=== PATIENT | female | born 1960 | race Caucasian/White ===

== ENCOUNTER 2021-01-25 21:22 | Inpatient (IN) | payer MEDICARE ==
[~2021-01-25] VITALS: Ht 160 cm; Wt 92.4 kg
[2021-01-25] MEDS ORDERED: ORPHENADRINE CITRATE 60 MG/2 ML VIAL. IM ONE (22:30)
[2021-01-25] MEDS ORDERED: DEXAMETHASONE SOD PHOS 20 MG/5 ML VIAL. IM ONE (22:30)
[2021-01-25] MEDS ORDERED: cloNIDine HCL 0.1 MG TABLET PO ONE (23:00)
--- NOTE | 2021-01-25 23:36 | RAD ---
CT lumbar spine without contrast PQRS statement: CT scans at this facility use dose reduction including either automated exposure cont rol, iterative reconstructions, and /or weight based radiation dosing via mA and kV modification when appropriate to reduce radiation dose to as low as reasonably achievable. HISTORY: Left low back pain. Left leg pain. FINDINGS: Lumbar vertebral body height and alignment intact. No fracture. No spondylolysis defect. No suspicious bone lesion. Aortoiliac artery calcified plaque. Paraspinal tissues are unremarkable. Lum bar disc height loss and disc bulges and facet spurring with multilevel spinal canal and neural malena inal stenoses, there is probable severe spinal canal stenosis at least at L4-L5. There is a large dis c herniation at T12-L1 likely contributing to marked severe spinal canal and left lateral recess sten osis the size of which could increase the probability impingement of the conus. IMPRESSION: No acute osseous injury of the lumbar spine. Lumbar disc disease as described above. Electronically signed by: Suraj Nguyễn MD (01/25/2021 11:33 PM) [facility]
--- NOTE | 2021-01-25 23:44 | ED.ADGEN ---
Past Medical History Additional Past Medical Histor: OSTEOPOROSIS, SLIPPED DISCS, MRSA Past Surgical History: , Hip Replacement, Tonsillectomy, Other Additional Past Surgical Histo: R AKA, KIDNEY STONE, GASTRIC BYPASS Smoking Status: Current Every Day Smoker Alcohol Use: None General Adult EDM: Chief Complaint: LOWER EXT PAIN HPI: HPI: Patient is a 60 year old female who presents emergency department via EMS with complaints of pain in her left leg that radiates from her low back to her knee. She denies any injury. Patient states she has been moving residences recently and has been doing a lot of bending. She reports that 6 or 7 days ago she felt like she pulled a muscle. Patient denies any numbness, tingling, or weakness of her lower left extremity. She denies any swelling, erythema, or warmth. Patient denies any dysuria, hematuria, increased urinary frequency, saddle anesthesia, or loss of bowel/bladder control. Patient currently rates her pain a 10 out of 10 on the pain scale, she states she took a hydrocodone at home with no relief of her pain she also is wearing a fentanyl pain patch with no benefit. She reports that the pain is worse with movement. Review of Systems: Review of Systems: Complete ROS is negative unless otherwise noted in the HPI. Current Medications: Current Medications Medications (Trade) Dose Ordered Sig/[facility] Start Time Stop Time Status Last Admin Dose Admin Clonidine HCl (Catapres) 0.1 mg 1X ONCE 01/25/21 23:00 01/25/21 23:01 DC 01/25/21 23:05 0.1 MG Dexamethasone Sodium Phosphate (Decadron) 10 mg 1X ONCE 01/25/21 22:30 01/25/21 22:31 DC 01/25/21 22:25 10 MG Orphenadrine Citrate (Norflex) 60 mg 1X ONCE 01/25/21 22:30 01/25/21 22:31 DC 01/25/21 22:23 60 MG Allergies: Allergies: Allergies Coded Allergies Type Severity Reaction Last Updated Verified No Known Drug Allergies 01/25/21 No Physical Exam: PE: See above Constitutional: Well developed, well nourished, no acute distress, non-toxic appearance. [] HENT: Normocephalic, atraumatic, bilateral external ears normal, nose normal. [] Eyes: PERRLA, EOMI, conjunctiva normal, no discharge. [] Neck: Normal range of motion, no stridor. [] Cardiovascular:Heart rate regular rhythm Lungs & Thorax: Respirations even and unlabored, no retractions, no respiratory distress Abdomen: soft, no tenderness Back: No bony tenderness or deformity; left lumbar paraspinal tenderness to palpation with increased pain and radiation to knee with left straight leg lift Skin: Warm, dry, no erythema, no rash. [] Extremities: No cyanosis, ROM intact, no edema. [] Neurologic: Alert and oriented X 3, normal sensory, no focal deficits noted. [] Psychologic: Affect normal, judgement normal, mood normal. [] Current Patient Data: Vital Signs: Vital Signs Date Time Temp Pulse Resp B/P (MAP) Pulse Ox O2 Delivery O2 Flow Rate FiO2 01/25/21 23:59 78 20 153/88 (109) 98 Room Air 01/25/21 21:23 98.4 98.4 EKG: EKG: [] Heart Score: C/O Chest Pain: No Radiology/Procedures: Radiology/Procedures: PROCEDURE: CT LUMBAR SPINE WO CONTRAST CT lumbar spine without contrast PQRS statement: CT scans at this facility use dose reduction including either automated exposure control, iterative reconstructions, and /or weight based radiation dosing via mA and kV modification when appropriate to reduce radiation dose to as low as reasonably achievable. HISTORY: Left low back pain. Left leg pain. FINDINGS: Lumbar vertebral body height and alignment intact. No fracture. No spondylolysis defect. No suspicious bone lesion. Aortoiliac artery calcified plaque. Paraspinal tissues are unremarkable. Lumbar disc height loss and disc bulges and facet spurring with multilevel spinal canal and neural foraminal stenoses, there is probable severe spinal canal stenosis at least at L4-L5. There is a large disc herniation at T12-L1 likely contributing to marked severe spinal canal and left lateral recess stenosis the size of which could increase the probability impingement of the conus. IMPRESSION: No acute osseous injury of the lumbar spine. Lumbar disc disease as described above. Electronically signed by: Suraj Nguyễn MD (01/25/2021 11:33 PM) [facility] [] Course & Med Decision Making: Course & Med Decision Making Pertinent Labs and Imaging studies reviewed. (See chart for details) 60-year-old female who presents emergency department via EMS with complaints of back pain. Patient was given 10 mg of IM Decadron, 60 mg of IM Norflex, and 0.1 mg clonidine in the ER. Her blood pressure improved. Patient reported that her pain also improved and she was able to sleep. CT the patient's lumbar spine was negative for any acute fractures or findings, there were were findings consistent with degenerative disc disease. Will prescribe a Medrol Dosepak. Encouraged patient to follow-up with her primary care doctor this week for further evaluation, return to the ER if symptoms worsen or fever develops. [id number] mild saline was at bedside and attempting to discharge patient back to her home when the patient was unable to transfer herself from the bed to the wheelchair or from the wheelchair to the bed. Patient does live by herself in an independent living apartment. Due to the patient's being unable to transfer due to intractable back pain will admit for further evaluation. [id number] will admit patient as observation status to Dr. Connolly for intractable back pain. Dr. Vazquez will advise Dr. Connolly admission in the morning. Patient's vital signs stable. Patient remains afebrile, appears nontoxic, respirations even and unlabored. Patient will be admitted to the medical surgical floor. []Patients Care and treatment plan provided by ER Nurse Practitioner. I was available for consult. Patient's chart reviewed. Jacqueline Disclaimer: Jacqueline Disclaimer: This electronic medical record was generated, in whole or in part, using a voice recognition dictation system. Departure Departure Impression: Primary Impression: Acute left-sided low back pain with sciatica Additional Impressions: Intractable low back pain Unable to ambulate Disposition: ADMITTED INPATIENT Admitting Physician: SHERRY Retana) Condition: STABLE Referrals: NO PCP (PCP) Patient Instructions: Sciatica, [id number] Additional Instructions: Fill the prescription(s) and use as directed. Apply heat or ice for to sore areas as needed for comfort. Activity as tolerated. Follow up with your primary care doctor this week if symptoms persist, return to the ER if symptoms worsen or you develop a fever. Scripts Methylprednisolone (MEDROL) 4 Mg Tab.ds.pk 1 PKG PO UD for 6 Days, #1 PKG 0 Refills Prov: SERA CHARELS TUBE BACKER 01/26/21 Problem Qualifiers Primary Impression: Acute left-sided low back pain with sciatica Sciatica laterality: sciatica of left side Qualified Codes: M54.42 - Lumbago with sciatica, left side SERA CHARLES APRN Jan 25, 2021 23:43 EDWIGE VAZQUEZ DO Jan 29, 2021 18:18
[2021-01-26] MEDS ORDERED: METH4TAB2 PO (00:07)
[2021-01-26] MEDS ORDERED: clonazePAM 0.5 MG TABLET PO ONE (01:30)
[2021-01-26] MEDS ORDERED: HYDROcodone/APAP 5/325MG 1 TAB TABLET PO ONE ×2 (01:30→05:00)
[2021-01-26] MEDS ORDERED: clonazePAM 0.5 MG TABLET PO PRN (06:15)
--- NOTE | 2021-01-26 09:48 | PDOC1 ---
History and Physical Date of Admission Date of Admission DATE: 01/26/21 TIME: 09:48 Identification/Chief Complaint Chief Complaint Acute severe lumbar radiculopathy, with intractable pain History of Present Illness History of Present Illness 60 year old female who presented emergency department via EMS with complaints of pain in her left leg that radiates from her low back to her knee. she has b een moving residences recently and has been doing a lot of bending./ 6 or 7 days ago she felt like she pulled a muscle. denies any numbness, tingling, or weakness of her lower left extremity. CT C/W probable severe spinal canal stenosis at least at L4-L5. There is a large disc herniation at T12-L1 likely contributing to marked severe spinal canal and left lateral recess stenosis admitted with Acute severe lumbar radiculopathy, with intractable pain // wearing a fentanyl pain patch with no benefit./ pain is worse with movement. Past Medical History Past Medical History Past Medical History Additional Past Medical Histor: OSTEOPOROSIS, SLIPPED DISCS, MRSA Past Surgical History: , Hip Replacement, Tonsillectomy, Other Additional Past Surgical Histo: R AKA, KIDNEY STONE, GASTRIC BYPASS Smoking Status: Current Every Day Smoker Alcohol Use: None fhx obesity, COPD Family History Family History: Hypertension Social History Smoke: No ALCOHOL: none Drugs: None Current Problem List Problem List Problems Medical Problems: (1) Acute left-sided low back pain with sciatica Status: Acute (2) Intractable low back pain Status: Acute (3) Unable to ambulate Status: Acute Current Medications Current Medications Current Medications Dexamethasone Sodium Phosphate (Decadron) 10 mg 1X ONCE IM Last administered on 01/25/21at 22:25; Start 01/25/21 at 22:30; Stop 01/25/21 at 22:31; Status DC Orphenadrine Citrate (Norflex) 60 mg 1X ONCE IM Last administered on 01/25/21at 22:23; Start 01/25/21 at 22:30; Stop 01/25/21 at 22:31; Status DC Clonidine HCl (Catapres) 0.1 mg 1X ONCE PO Last administered on 01/25/21at 23:05; Start 01/25/21 at 23:00; Stop 01/25/21 at 23:01; Status DC Acetaminophen/ Hydrocodone Bitart (Lortab 5/325) 1 tab 1X ONCE PO Last administered on 01/26/21at 01:26; Start 01/26/21 at 01:30; Stop 01/26/21 at 01:31; Status DC Clonazepam (KlonoPIN) 2 mg 1X ONCE PO Last administered on 01/26/21at 01:29; Start 01/26/21 at 01:30; Stop 01/26/21 at 01:31; Status DC Acetaminophen/ Hydrocodone Bitart (Lortab 5/325) 1 tab 1X ONCE PO Last administered on 01/26/21at 04:54; Start 01/26/21 at 05:00; Stop 01/26/21 at 05:01; Status DC Clonazepam (KlonoPIN) 2 mg 1X PRN PRN PO ANXIETY / AGITATION Last administered on 01/26/21at 09:13; Start 01/26/21 at 06:15 Active Scripts Active Medrol (Methylprednisolone) 4 Mg Tab.ds.pk 1 Pkg PO UD 6 Days Allergies Allergies: Coded Allergies: No Known Drug Allergies (Unverified , 01/25/21) ROS General: No: Chills, Night Sweats, Fatigue, Malaise, Appetite, Other PSYCHOLOGICAL ROS: YES: Anxiety; No: Behavioral Disorder, Concentration difficultie, Decreased libido, Depression, Disorientation, Hallucinations, Hostility, Irritablity, Memory difficulties, Mood Swings, Obsessive thoughts, Physical abuse, Sexual abuse, Sleep disturbances, Suicidal ideation, Other Eyes: No Blurry vision, No Decreased vision, No Double vision, No Dry eyes, No Excessive tearing, No Eye Pain, No Itchy Eyes, No Loss of vision, No Photophobia, No Scotomata, No Uses contacts, No Uses glasses, No Other HEENT: No: Heacaches, Visual Changes, Hearing change, Nasal congestion, Nasal discharge, Oral lesions, Sinus pain, Sore Throat, Epistaxis, Sneezing, Snoring, Tinnitus, Vertigo, Vocal changes, Other ALLERGY AND IMMUNOLOGY: No: Hives, Insect Bite Sensitivity, Itchy/Watery Eyes, Nasal Congestion, Post Nasal Drip, Seasonal Allergies, Other Hematological and Lymphatic: No: Bleeding Problems, Blood Clots, Blood Transfusions, Brusing, Night Sweats, Pallor, Swollen Lymph Nodes, Other ENDOCRINE: No: Breast Changes, Galactorrhea, Hair Pattern Changes, Hot Flashes, Malaise/lethargy, Mood Swings, Palpitations, Polydipsia/polyuria, Skin Changes, Temperature Intolerance, Unexpected Weight Changes, Other Breast: No New/Changing Breast Lumps, No Nipple changes, No Nipple discharge, No Other Respiratory: No: Cough, Hemoptysis, Orthopnea, Pleuritic Pain, Shortness of breath, SOB with excertion, Sputum Changes, Stridor, Tachypnea, Wheezing, Other Cardiovascular: No Chest Pain, No Palpitations, No Orthopnea, No Paroxysmal Noc. Dyspnea, No Edema, No Lt Headedness, No Other Gastrointestinal: No Nausea, No Vomiting, No Abdominal Pain, No Diarrhea, No Constipation, No Melena, No Hematochezia, No Other Genitourinary: No Dysuria, No Frequency, No Incontinence, No Hematuria, No Retention, No Discharge, No Urgency, No Pain, No Flank Pain, No Other, No , No , No , No , No , No , No Musculoskeletal: Yes Joint Stiffness, Yes Muscular Weakness; No Gait Disturbance, No Joint Pain, No Joint Swelling, No Muscle Pain, No Pain In:, No Swelling In:, No Other Neurological: No Behavorial Changes, No Bowel/Bladder ControlChng, No Confusion, No Dizziness, No Gait Disturbance, No Headaches, No Impaired Coord/balance, No Memory Loss, No Numbness/Tingling, No Seizures, No Speech Problems, No Tremors, No Visual Changes, No Weakness, No Other Skin: No Dry Skin, No Eczema, No Hair Changes, No Lumps, No Mole Changes, No Mottling, No Nail Changes, No Pruritus, No Rash, No Skin Lesion Changes, No Other, No Acne Physical Exam Physical Exam Constitutional: Well developed, well nourished, mod acute distress, non-toxic appearance. [] HENT: Normocephalic, atraumatic, bilateral external ears normal, nose normal. [] Eyes: PERRLA, EOMI, conjunctiva normal, no discharge. [] Neck: Normal range of motion, no stridor. [] Cardiovascular:Heart rate regular rhythm Lungs & Thorax: Respirations even and unlabored, no retractions, no respiratory distress Abdomen: soft, no tenderness Back: No bony tenderness or deformity; left lumbar paraspinal tenderness to palpation with increased pain and radiation to knee with left straight leg lift Skin: Warm, dry, no erythema, no rash. [] Extremities: No cyanosis, no edema. [] General: Alert, Oriented X3, Cooperative, moderate distress HEENT: Atraumatic, PERRLA Lungs: Clear to auscultation Heart: RRR, no thrills, no rubs Breasts: Not examined Abdomen: Normal bowel sounds, Soft Rectal Exam: not examined PELVIC: Examination not indicated Extremities: No cyanosis Skin: No significant lesion Neuro: Normal speech, Cranial nerves 3-12 NL Psych/Mental Status: Mental status NL, Mood NL Vitals Vitals Vital Signs Date Time Temp Pulse Resp B/P (MAP) Pulse Ox O2 Delivery O2 Flow Rate FiO2 01/26/21 07:35 69 17 139/78 (98) 97 Room Air 01/25/21 21:23 98.4 98.4 Labs Labs Laboratory Tests Test 01/26/21 01:25 SARS-CoV-2 Antigen (Rapid) Negative (NEGATIVE) Laboratory Tests Test 01/26/21 01:25 SARS-CoV-2 Antigen (Rapid) Negative (NEGATIVE) Images Images Signed PATIENT: COOPER HERNANDEZ ACCOUNT: [id number] : 1960 LOCATION: ER AGE: 60 SEX: F EXAM STATUS: REG ER ORD. PHYSICIAN: SERA CHARLES APRN REASON: left low back pain DOWN LT LEG FEELS LIKE BEING PULLED APART ON MUSCLE PROCEDURE: CT LUMBAR SPINE WO CONTRAST CT lumbar spine without contrast PQRS statement: CT scans at this facility use dose reduction including either automated exposure control, iterative reconstructions, and /or weight based radiation dosing via mA and kV modification when appropriate to reduce radiation dose to as low as reasonably achievable. HISTORY: Left low back pain. Left leg pain. FINDINGS: Lumbar vertebral body height and alignment intact. No fracture. No spondylolysis defect. No suspicious bone lesion. Aortoiliac artery calcified plaque. Paraspinal tissues are unremarkable. Lumbar disc height loss and disc bulges and facet spurring with multilevel spinal canal and neural foraminal stenoses, there is probable severe spinal canal stenosis at least at L4-L5. There is a large disc herniation at T12-L1 likely contributing to marked severe spinal canal and left lateral recess stenosis the size of which could increase the probability impingement of the conus. IMPRESSION: No acute osseous injury of the lumbar spine. Lumbar disc disease as described above. Electronically signed by: Rafael Nguyễn MD (01/25/2021 11:33 PM) [facility] [place] DICTATED and SIGNED BY: RAFAEL NGUYỄN MD DATE: 01/25/21 [id number] VTE Prophylaxis Ordered VTE Prophylaxis Devices: Yes VTE Pharmacological Prophylaxi: Yes Assessment/Plan Assessment/Plan IMPRESSION === Acute severe lumbar radiculopathy, with intractable pain probable severe spinal canal stenosis at least at L4-L5. There is a large disc herniation at T12-L1 likely contributing to marked severe spinal canal and left lateral recess stenosis Morbid obesity plan=== ADMIT IV PAIN CONTROL Neurosurgery consult iv pain control PT/OT Consider MRI L/S Consult dr [facility] dvt prophylaxis Justifications for Admission Other Justification ÁNGEL MARKS MD Jan 26, 2021 09:48
[2021-01-26 11:13] LABS: BASO % 0 % (0-3); EOS % 0 % (0-3); HEMATOCRIT 48.9 % (36.0-47.0); HEMOGLOBIN 16.5 g/dL (12.0-15.5); LYMPH # 0.8 x10^3/uL (1.0-4.8); LYMPH % 11 % (24-48); MEAN CORPUSCULAR HEMOGLOBIN 30 pg (25-35); MEAN CORPUSCULAR HGB CONC 34 g/dL (31-37); MEAN CORPUSCULAR VOLUME 90 fL (79-100); MONO # 0.2 x10^3/uL (0.0-1.1); MONO % 3 % (0-9); NEUT # 6.2 x10^3/uL (1.8-7.7); NEUT % 86 % (31-73); PLATELET COUNT 223 x10^3/uL (140-400); RED BLOOD COUNT 5.43 x10^6/uL (3.50-5.40); RED CELL DISTRIBUTION WIDTH 13.7 % (11.5-14.5); WHITE BLOOD COUNT 7.2 x10^3/uL (4.0-11.0)
[2021-01-26 11:26] LABS: ALBUMIN 3.6 g/dL (3.4-5.0); CALCIUM 9.3 mg/dL (8.5-10.1); CREATININE 0.8 mg/dL (0.6-1.0); GFR 72.7; POTASSIUM 4.7 mmol/L (3.5-5.1); TOTAL BILIRUBIN 0.2 mg/dL (0.2-1.0); TOTAL PROTEIN 7.2 g/dL (6.4-8.2)
[2021-01-26 12:00] LABS: % BANDS 2 % (0-9); % LYMPHS 11 % (24-48); % MONOS 3 % (0-10); % SEGS 84 % (35-66); PLT ESTIMATE ADEQUATE (ADEQUATE)
[2021-01-26 12:30] VITALS: BP 130/102
[2021-01-26 14:04] VITALS: BP 157/106
[2021-01-26] MEDS: HYDROmorphone 2 MG/ML VIAL IVP PRN (14:30)
[2021-01-26] MEDS ORDERED: 0.9 % SODIUM CHLORIDE 10 ML DISP.SYRIN. IV PRN (14:45)
[2021-01-26] MEDS ORDERED: SODIUM PHOSPHATES 19/7GM 133 ML ENEMA. PR PRN (14:45)
[2021-01-26] MEDS ORDERED: guaiFENesin ORAL 200 MG/10 ML LIQUID. PO PRN (14:45)
[2021-01-26] MEDS ORDERED: ONDANSETRON PF 4 MG/2 ML VIAL. IV PRN (14:45)
[2021-01-26] MEDS ORDERED: ACETAMINOPHEN 650 MG SUPP.RECT. PR PRN (14:45)
[2021-01-26] MEDS ORDERED: MAG HYDROX/ALUMINUM HYD/SIMETH 30 ML ORAL.SUSP PO PRN (14:45)
[2021-01-26] MEDS ORDERED: DOCUSATE SODIUM 100 MG CAPSULE. PO PRN (14:45)
[2021-01-26] MEDS ORDERED: ALBUTEROL SULFATE 2.5 MG/3 ML NEBU. NEB PRN (14:45)
--- NOTE | 2021-01-26 14:56 | PDOC4 ---
PROCEDURE Procedure At her request,I have injected painful left sacroiliac joint under aseptic skin technique,with alcohol skin prep using 2 ml of 0.25% marcaine solution mixed with 1 ml of depo-medrol 40 mg/1 ml. solution and she tolerated the procedure satisfactorily without any side effects. FRANCISCO JAVIER GIORDANO MD Jan 26, 2021 14:56
[2021-01-26 15:00] VITALS: BP 166/100
[2021-01-26] MEDS ORDERED: methylPREDNISolone ACETATE 40 MG/ML VIAL. IM ONE (15:00)
[2021-01-26] MEDS ORDERED: BUPIVACAINE MPF 0.25% 10 ML VIAL. IJ ONE (15:00)
--- NOTE | 2021-01-26 15:32 | CONS ---
DATE OF CONSULTATION: 01/26/2021 ATTENDING PHYSICIAN: Loyd Chandler MD REASON FOR CONSULTATION: The patient was seen at the request of Dr. Chandler for rehab evaluation. HISTORY OF PRESENT ILLNESS: This is a 60-year-old female admitted through the Emergency Room with severe lower back pain with radiation to her left knee. The patient had moved recently in the last week. She initially thought she might have strained her hamstrings. As it did not get any better, she was admitted through the Emergency Room. CT scan of lumbar spine revealed severe spinal canal stenosis at L4-L5 and also a large disk herniation at T12-L1, likely contributing to her marked severe spinal stenosis and left lateral recess stenosis. The patient admits chronic lower back pain. 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 Also, history of kidney stones, left hip replacement, tonsillectomy, gastric bypass. She is an everyday smoker. Also, history of obesity, chronic obstructive pulmonary disease, family history of hypertension. She is not known allergic to any medication. The patient usually gets around at wheelchair level. She lives alone. The patient denies any trouble with her bowel or bladder control. PHYSICAL EXAMINATION: GENERAL: Today revealed a middle-aged female. She is alert, in no acute distress. MUSCULOSKELETAL: The patient had painful limited movements of her lumbar spine, tenderness to palpation over left lumbar paraspinal muscles extending over to sacroiliac joint area bilaterally and also over trochanteric bursa. She had painful range of motion of both hip joints. She had mild crepitus on range of motion of left knee joint. The patient had 5/5 grade muscle strength in her upper extremities and left lower extremity. Left above-knee stump is in good condition. Straight leg raising test is negative bilaterally. She seemed to have equal perception of touch and pinprick sensation bilaterally, decreased left knee jerk, 2+ left ankle jerk. I have not tested her ambulation skills, but she is independent rolling from side to side. She is obese. 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 No clinical evidence of ongoing lumbar radiculopathy, mild degenerative joint disease of left knee joint. The patient is status post left total hip arthroplasty in the past, chronic obstructive pulmonary disease, osteoporosis, previous gastric bypass surgery. RECOMMENDATIONS: To proceed with injecting painful left sacroiliac joint area to help ease her pain. Agree with the plans for physical therapy and occupational therapy, also to start her on a Medrol Dosepak and Protonix to help protect her stomach as she had gastric bypass surgery in the past. Dr. Chandler, I appreciate asking me to participate in the care of this interesting patient. I will be glad to see her for followup with you on as-needed basis. MARK DR: Shasha TID: [id number]
[2021-01-26] MEDS ORDERED: PANTOPRAZOLE 40 MG TABLET.DR. PO SCH (16:30)
[2021-01-26 16:33] LABS: BILIRUBIN,URINE NEGATIVE (NEG); CLARITY,URINE CLEAR; COLOR,URINE YELLOW; NITRITE,URINE POSITIVE (NEG); PROTEIN,URINE NEGATIVE (NEG-TRACE); UROBILINOGEN,URINE 0.2 mg/dL (0.2 mg/dL)
[2021-01-26 16:43] LABS: BACTERIA,URINE MANY /HPF (0-FEW)
--- NOTE | 2021-01-26 16:43 | PDOC ---
Provider Note Date of Service: DATE: 01/26/21 TIME: 16:36 Provider Note Patient seen and examined at 1530 consulted for back and left leg pain She martha last week and initially thought she might have strained a muscle. It did not get any better, she was admitted through the ER. A The patient reports chronic lower back pain. 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 Also, history of kidney stones, left hip replacement, tonsillectomy, gastric bypass. She is an everyday smoker. Also, history of obesity, chronic obstructive pulmonary disease. She usually gets around at wheelchair level. She lives alone. The patient denies any trouble with her bowel or bladder control. CT reviewed with Lumbar disc height loss and disc bulges and facet spurring with multilevel spinal canal and neural foraminal stenoses, there is probable severe spinal canal stenosis at least at L4-L5. There is a large disc herniation at T12-L1 likely contributing to marked severe spinal canal and left lateral recess stenosis the size of which could increase the probability impingement of the conus. Thoracic and lumbar MRI scans ordered. Will follow. Justifications for Admission Other Justification intractable lumbar radiculopathy ESAU MORALES MD Jan 26, 2021 16:43
[2021-01-26 16:44] LABS: RBC,URINE 0 /HPF (0-2)
[2021-01-26] MEDS: methylPREDNISolone 4 MG TABLET. PO SCH ×4 (17:00→21:36)
[2021-01-26] MEDS: HYDROcodone/APAP 10/325 1 TAB TABLET PO PRN (17:21)
[2021-01-26] MEDS: IV NORMAL SALINE 1000ML BAG 1,000 ML IV SCH (17:24)
[2021-01-26] MEDS ORDERED: vitamin D PO (18:40)
[2021-01-26] MEDS ORDERED: OMEP20CA16 PO (18:40)
[2021-01-26] MEDS ORDERED: CLONAZEPAM1 MG PO (18:40)
[2021-01-26] MEDS ORDERED: CALC-497 PO (18:40)
[2021-01-26] MEDS ORDERED: LISI20TA18 PO (18:40)
[2021-01-26] MEDS ORDERED: ACID1TAB14 PO (18:40)
[2021-01-26] MEDS ORDERED: ZOLP5TAB5 PO (18:40)
[2021-01-26] MEDS ORDERED: vitamin b12 PO (18:40)
[2021-01-26] MEDS ORDERED: CLON2TAB9 PO (18:40)
[2021-01-26] MEDS ORDERED: [UNRECOGNIZED DRUG - OTHER] PO (18:40)
[2021-01-26] MEDS ORDERED: LURA60TA PO (18:40)
[2021-01-26] MEDS ORDERED: VITA400T6 PO (18:40)
[2021-01-26] MEDS ORDERED: DULO20CA PO (18:40)
[2021-01-26] MEDS ORDERED: PREG-9 PO (18:40)
[2021-01-26] MEDS ORDERED: LACT1CAP21 PO (18:40)
[2021-01-26] MEDS ORDERED: SENN8.6T11 PO (18:40)
[2021-01-26] MEDS ORDERED: ATOR40TA59 PO (18:40)
[2021-01-26] MEDS ORDERED: SUCR1TAB PO (18:40)
[2021-01-26] MEDS ORDERED: vitamin (18:40)
[2021-01-26] MEDS ORDERED: MULT-735 PO (18:40)
[2021-01-26] MEDS ORDERED: TAMS0.4C97 PO (18:40)
[2021-01-26] MEDS ORDERED: FENT1PAT17 TD (18:40)
[2021-01-26] MEDS ORDERED: FLUT16SP NS (18:40)
[2021-01-26] MEDS ORDERED: NALO25TA4 PO (18:40)
[2021-01-26] MEDS ORDERED: LEVO50TA5 PO (18:40)
[2021-01-26] MEDS ORDERED: DOCU50CA11 PO (18:40)
[2021-01-26 19:00] VITALS: BP 169/102
[2021-01-26] MEDS: LIDOCAINE (700MG/PATCH) PATCH. TD SCH (19:53)
[2021-01-26] MEDS: ENOXAPARIN 40 MG/0.4 ML SYRINGE. SQ SCH (19:54)
--- NOTE | 2021-01-26 20:10 | NUR ---
Pt arrived to floor at 1230 via stretcher, transported by ED staff. Assessment was completed at 1300 and medications were entered into computer. 4mg of Prednisone was not given d/t first dose given late.
[2021-01-26] MEDS ORDERED: [UNRECOGNIZED DRUG - OTHER] PO PRN (20:45)
[2021-01-26] MEDS: PATCH REMOVAL. MC SCH (21:00)
[2021-01-26] MEDS: ACETAMINOPHEN 325 MG TABLET. PO PRN (21:36)
[2021-01-26] MEDS: PREGABALIN 75 MG CAPSULE PO SCH (21:36)
[2021-01-26] MEDS: ATORVASTATIN CALCIUM 40 MG TABLET. PO SCH (21:37)
[2021-01-26] MEDS: DULoxetine HCL 20 MG CAPSULE.DR PO SCH (21:37)
[2021-01-26] MEDS: clonazePAM 0.5 MG TABLET PO SCH (21:37)
[2021-01-26] MEDS: SUCRALFATE 1 GM TABLET. PO SCH (21:37)
[2021-01-26] MEDS: SENNOSIDES 8.6 MG TABLET PO SCH (21:37)
[2021-01-26] MEDS: DOCUSATE SODIUM 100 MG CAPSULE. PO SCH (21:37)
[2021-01-26] MEDS: ZOLPIDEM 5 MG TABLET. PO PRN (21:38)
[2021-01-26 23:00] VITALS: BP 162/84
[2021-01-27] MEDS: HYDROcodone/APAP 10/325 1 TAB TABLET PO PRN ×4 (00:57→21:43)
[2021-01-27 03:01] VITALS: BP 188/99
[2021-01-27 03:15] VITALS: BP 142/86
[2021-01-27] MEDS: clonazePAM 0.5 MG TABLET PO PRN ×2 (05:42→15:36)
[2021-01-27] MEDS: ACETAMINOPHEN 325 MG TABLET. PO PRN (05:42)
[2021-01-27] MEDS: LEVOTHYROXINE 50 MCG TABLET PO SCH (05:42)
[2021-01-27] MEDS: IV NORMAL SALINE 1000ML BAG 1,000 ML IV SCH ×2 (05:43→18:06)
[2021-01-27 07:00] VITALS: BP 212/109
[2021-01-27] MEDS: LIDOCAINE (700MG/PATCH) PATCH. TD SCH (08:45)
[2021-01-27] MEDS: methylPREDNISolone 4 MG TABLET. PO SCH ×3 (08:46→17:35)
[2021-01-27] MEDS: SUCRALFATE 1 GM TABLET. PO SCH ×2 (08:46→20:35)
[2021-01-27] MEDS: TAMSULOSIN 0.4 MG CAP.ER.24H. PO SCH (08:46)
[2021-01-27] MEDS: PANTOPRAZOLE 40 MG TABLET.DR. PO SCH (08:46)
[2021-01-27] MEDS: LACTOBACILLUS RHAMNOSUS GG 1 CAPSULE. PO SCH (08:46)
[2021-01-27] MEDS: SENNOSIDES 8.6 MG TABLET PO SCH ×2 (08:47→20:29)
[2021-01-27] MEDS: VITAMIN E 200 UNIT CAPSULE. PO SCH (08:47)
[2021-01-27] MEDS: MULTIVITAMIN with MINERAL TABLET. PO SCH (08:47)
[2021-01-27] MEDS: CALCIUM CARB/VIT D3 500/200 TABLET. PO SCH ×2 (08:47→17:34)
[2021-01-27] MEDS: CHOLECALCIFEROL (VITAMIN D3) 1,000 UNIT TABLET PO SCH (08:47)
[2021-01-27] MEDS: LURASIDONE 40 MG TABLET. PO SCH (08:47)
[2021-01-27] MEDS: DULoxetine HCL 20 MG CAPSULE.DR PO SCH ×2 (08:47→20:29)
[2021-01-27] MEDS: DOCUSATE SODIUM 100 MG CAPSULE. PO SCH ×2 (08:48→20:30)
[2021-01-27] MEDS: LISINOPRIL 20 MG TABLET PO SCH (08:48)
[2021-01-27] MEDS: PREGABALIN 75 MG CAPSULE PO SCH ×2 (08:48→20:29)
[2021-01-27] MEDS: FLUTICASONE 50MCG/NASAL SPRAY 16GM BOTTLE. NS SCH (08:49)
[2021-01-27] MEDS ORDERED: LACTOBACILLUS RHAMNOSUS GG PO SCH (09:00)
[2021-01-27] MEDS ORDERED: NON FORMULARY ITEM (Naloxegol Oxalate (Movantik) 25 MG) PO SCH (09:00)
[2021-01-27] MEDS: CYANOCOBALAMIN (VITAMIN B-12) 1,000 MCG TABLET. PO SCH (09:00)
--- NOTE | 2021-01-27 09:27 | PDOC ---
PROGRESS NOTES Date of Service DATE: 01/27/21 TIME: 09:23 Subjective Subjective She feels better with back pain but admits radiating pain in her left lower extremity and feels that she could not move her left lower extremity,just like she did before her problem started last week. Objective Objective Vital Signs Date Time Temp Pulse Resp B/P (MAP) Pulse Ox O2 Delivery O2 Flow Rate FiO2 01/27/21 09:12 20 Room Air 01/27/21 08:48 83 212/109 01/27/21 07:00 97.7 96 97.7 01/27/21 03:01 1.0 Intake and Output 01/27/21 07:00 Intake Total 800 ml Output Total 350 ml Balance 450 ml Intake Oral 800 ml Output Urine Total 350 ml # Voids 1 Physical Exam Physical Exam She is alert,supine in bed and she had relative weakness of left hip flexors and adductors. Physical and occupational therapy has not seen her yet. Assessment Assessment Problems Medical Problems: (1) Acute left-sided low back pain with sciatica Status: Acute (2) Intractable low back pain Status: Acute (3) Unable to ambulate Status: Acute Plan Plan of Care Await MRI scan. Comment Review of Relevant I have reviewed the following items luis (where applicable) has been applied. Labs Laboratory Tests Test 01/26/21 01:25 01/26/21 11:05 01/26/21 12:50 SARS-CoV-2 Antigen (Rapid) Negative (NEGATIVE) White Blood Count 7.2 x10^3/uL (4.0-11.0) Red Blood Count 5.43 x10^6/uL (3.50-5.40) Hemoglobin 16.5 g/dL (12.0-15.5) Hematocrit 48.9 % (36.0-47.0) Mean Corpuscular Volume 90 fL (79-100) Mean Corpuscular Hemoglobin 30 pg (25-35) Mean Corpuscular Hemoglobin Concent 34 g/dL (31-37) Red Cell Distribution Width 13.7 % (11.5-14.5) Platelet Count 223 x10^3/uL (140-400) Neutrophils (%) (Auto) 86 % (31-73) Lymphocytes (%) (Auto) 11 % (24-48) Monocytes (%) (Auto) 3 % (0-9) Eosinophils (%) (Auto) 0 % (0-3) Basophils (%) (Auto) 0 % (0-3) Neutrophils # (Auto) 6.2 x10^3/uL (1.8-7.7) Lymphocytes # (Auto) 0.8 x10^3/uL (1.0-4.8) Monocytes # (Auto) 0.2 x10^3/uL (0.0-1.1) Eosinophils # (Auto) 0.0 x10^3/uL (0.0-0.7) Basophils # (Auto) 0.0 x10^3/uL (0.0-0.2) Segmented Neutrophils % 84 % (35-66) Band Neutrophils % 2 % (0-9) Lymphocytes % 11 % (24-48) Monocytes % 3 % (0-10) Platelet Estimate Adequate (ADEQUATE) Sodium Level 134 mmol/L (136-145) Potassium Level 4.7 mmol/L (3.5-5.1) Chloride Level 102 mmol/L (98-107) Carbon Dioxide Level 27 mmol/L (21-32) Anion Gap 5 (6-14) Blood Urea Nitrogen 9 mg/dL (7-20) Creatinine 0.8 mg/dL (0.6-1.0) Estimated GFR (Cockcroft-Gault) 72.7 BUN/Creatinine Ratio 11 (6-20) Glucose Level 143 mg/dL (70-99) Calcium Level 9.3 mg/dL (8.5-10.1) Total Bilirubin 0.2 mg/dL (0.2-1.0) Aspartate Amino Transf (AST/SGOT) 18 U/L (15-37) Alanine Aminotransferase (ALT/SGPT) 15 U/L (14-59) Alkaline Phosphatase 115 U/L (46-116) Total Protein 7.2 g/dL (6.4-8.2) Albumin 3.6 g/dL (3.4-5.0) Albumin/Globulin Ratio 1.0 (1.0-1.7) Urine Collection Type Unknown Urine Color Yellow Urine Clarity Clear Urine pH 7.0 (<5.0-8.0) Urine Specific [place] 1.015 (1.000-1.030) Urine Protein Negative mg/dL (NEG-TRACE) Urine Glucose (UA) Negative mg/dL (NEG) Urine Ketones (Stick) Negative mg/dL (NEG) Urine Blood Negative (NEG) Urine Nitrite Positive (NEG) Urine Bilirubin Negative (NEG) Urine Urobilinogen Dipstick 0.2 mg/dL (0.2 mg/dL) Urine Leukocyte Esterase Small (NEG) Urine RBC 0 /HPF (0-2) Urine WBC 5-10 /HPF (0-4) Urine Squamous Epithelial Cells Few /LPF Urine Bacteria Many /HPF (0-FEW) Laboratory Tests Test 01/26/21 11:05 01/26/21 12:50 White Blood Count 7.2 x10^3/uL (4.0-11.0) Red Blood Count 5.43 x10^6/uL (3.50-5.40) Hemoglobin 16.5 g/dL (12.0-15.5) Hematocrit 48.9 % (36.0-47.0) Mean Corpuscular Volume 90 fL (79-100) Mean Corpuscular Hemoglobin 30 pg (25-35) Mean Corpuscular Hemoglobin Concent 34 g/dL (31-37) Red Cell Distribution Width 13.7 % (11.5-14.5) Platelet Count 223 x10^3/uL (140-400) Neutrophils (%) (Auto) 86 % (31-73) Lymphocytes (%) (Auto) 11 % (24-48) Monocytes (%) (Auto) 3 % (0-9) Eosinophils (%) (Auto) 0 % (0-3) Basophils (%) (Auto) 0 % (0-3) Neutrophils # (Auto) 6.2 x10^3/uL (1.8-7.7) Lymphocytes # (Auto) 0.8 x10^3/uL (1.0-4.8) Monocytes # (Auto) 0.2 x10^3/uL (0.0-1.1) Eosinophils # (Auto) 0.0 x10^3/uL (0.0-0.7) Basophils # (Auto) 0.0 x10^3/uL (0.0-0.2) Segmented Neutrophils % 84 % (35-66) Band Neutrophils % 2 % (0-9) Lymphocytes % 11 % (24-48) Monocytes % 3 % (0-10) Platelet Estimate Adequate (ADEQUATE) Sodium Level 134 mmol/L (136-145) Potassium Level 4.7 mmol/L (3.5-5.1) Chloride Level 102 mmol/L (98-107) Carbon Dioxide Level 27 mmol/L (21-32) Anion Gap 5 (6-14) Blood Urea Nitrogen 9 mg/dL (7-20) Creatinine 0.8 mg/dL (0.6-1.0) Estimated GFR (Cockcroft-Gault) 72.7 BUN/Creatinine Ratio 11 (6-20) Glucose Level 143 mg/dL (70-99) Calcium Level 9.3 mg/dL (8.5-10.1) Total Bilirubin 0.2 mg/dL (0.2-1.0) Aspartate Amino Transf (AST/SGOT) 18 U/L (15-37) Alanine Aminotransferase (ALT/SGPT) 15 U/L (14-59) Alkaline Phosphatase 115 U/L (46-116) Total Protein 7.2 g/dL (6.4-8.2) Albumin 3.6 g/dL (3.4-5.0) Albumin/Globulin Ratio 1.0 (1.0-1.7) Urine Collection Type Unknown Urine Color Yellow Urine Clarity Clear Urine pH 7.0 (<5.0-8.0) Urine Specific [place] 1.015 (1.000-1.030) Urine Protein Negative mg/dL (NEG-TRACE) Urine Glucose (UA) Negative mg/dL (NEG) Urine Ketones (Stick) Negative mg/dL (NEG) Urine Blood Negative (NEG) Urine Nitrite Positive (NEG) Urine Bilirubin Negative (NEG) Urine Urobilinogen Dipstick 0.2 mg/dL (0.2 mg/dL) Urine Leukocyte Esterase Small (NEG) Urine RBC 0 /HPF (0-2) Urine WBC 5-10 /HPF (0-4) Urine Squamous Epithelial Cells Few /LPF Urine Bacteria Many /HPF (0-FEW) Medications Current Medications Dexamethasone Sodium Phosphate (Decadron) 10 mg 1X ONCE IM Last administered on 01/25/21at 22:25; Start 01/25/21 at 22:30; Stop 01/25/21 at 22:31; Status DC Orphenadrine Citrate (Norflex) 60 mg 1X ONCE IM Last administered on 01/25/21at 22:23; Start 01/25/21 at 22:30; Stop 01/25/21 at 22:31; Status DC Clonidine HCl (Catapres) 0.1 mg 1X ONCE PO Last administered on 01/25/21at 23:05; Start 01/25/21 at 23:00; Stop 01/25/21 at 23:01; Status DC Acetaminophen/ Hydrocodone Bitart (Lortab 5/325) 1 tab 1X ONCE PO Last administered on 01/26/21at 01:26; Start 01/26/21 at 01:30; Stop 01/26/21 at 01:31; Status DC Clonazepam (KlonoPIN) 2 mg 1X ONCE PO Last administered on 01/26/21at 01:29; Start 01/26/21 at 01:30; Stop 01/26/21 at 01:31; Status DC Acetaminophen/ Hydrocodone Bitart (Lortab 5/325) 1 tab 1X ONCE PO Last administered on 01/26/21at 04:54; Start 01/26/21 at 05:00; Stop 01/26/21 at 05:01; Status DC Clonazepam (KlonoPIN) 2 mg 1X PRN PRN PO ANXIETY / AGITATION Last administered on 01/26/21at 09:13; Start 01/26/21 at 06:15; Stop 01/26/21 at 10:00; Status DC Hydromorphone HCl (Dilaudid) 0.4 mg PRN Q4HRS PRN IVP MODERATE TO SEVERE PAIN Last administered on 01/26/21at 14:30; Start 01/26/21 at 10:00 Methylprednisolone Acetate (DEPO-Medrol 40MG VIAL) 40 mg 1X ONCE IM ; Start 01/26/21 at 15:00; Stop 01/26/21 at 15:01; Status DC Bupivacaine HCl (Sensorcaine-Mpf 0.25%) 10 ml 1X ONCE IJ ; Start 01/26/21 at 15 :00; Stop 01/26/21 at 15:01; Status DC Acetaminophen/ Hydrocodone Bitart (Lortab 10/325) 1 tab PRN Q6HRS PRN PO MODERATE TO SEVERE PAIN Last administered on 01/27/21at 09:12; Start 01/26/21 at 14:30 Lidocaine (Lidoderm) 1 patch DAILY TD Last administered on 01/27/21at 08:45; Start 01/26/21 at 14:00 Miscellaneous (Lidoderm Patch Removal) 1 ea QHS ; Start 01/26/21 at 21:00 Tizanidine HCl (Zanaflex) 4 mg PRN Q8HRS PRN PO MUSCLE SPASMS; Start 01/26/21 at 14:30 Methylprednisolone (Medrol) 8 mg BID PO Last administered on 01/26/21at 21:36; Start 01/26/21 at 15:00; Stop 01/26/21 at 21:01; Status DC Methylprednisolone (Medrol) 4 mg BID@1700,1900 PO ; Start 01/26/21 at 17:00; Stop 01/26/21 at 19:01; Status DC Methylprednisolone (Medrol) 4 mg TIDPC PO Last administered on 01/27/21at 08:46; Start 01/27/21 at 08:30; Stop 01/27/21 at 17:31 Methylprednisolone (Medrol) 8 mg QHS PO ; Start 01/27/21 at 21:00; Stop 01/27/21 at 21:01 Methylprednisolone (Medrol) 4 mg QIDAFTMEAL PO ; Start 01/28/21 at 09:00; Stop 01/28/21 at 21:01 Methylprednisolone (Medrol) 4 mg TID PO ; Start 01/29/21 at 09:00; Stop 01/29/21 at 21:01 Methylprednisolone (Medrol) 4 mg BID PO ; Start 01/30/21 at 09:00; Stop 01/30/21 at 21:01 Methylprednisolone (Medrol) 4 mg DAILY PO ; Start 01/31/21 at 09:00; Stop 01/31/21 at 09:01 Pantoprazole Sodium (Protonix) 40 mg DAILYAC PO Last administered on 01/26/21at 19:53; Start 01/26/21 at 16:30; Stop 01/26/21 at 21:02; Status DC Sodium Chloride (Normal Saline Flush) 3 ml QSHIFT PRN IV AFTER MEDS AND BLOOD DRAWS; Start 01/26/21 at 14:45 Sodium Chloride 1,000 ml @ 75 mls/hr [id number] IV Last administered on 01/27/21at 05:43; Start 01/26/21 at 14:45 Ondansetron HCl (Zofran) 4 mg PRN Q4HRS PRN IV NAUSEA/VOMITING; Start 01/26/21 at 14:45 Acetaminophen (Tylenol) 650 mg PRN Q4HRS PRN PO TEMP OVER 100.4F OR MILD PAIN Last administered on 01/27/21at 05:42; Start 01/26/21 at 14:45 Acetaminophen (Tylenol Supp) 650 mg PRN Q4HRS PRN DE TEMP OVER 100.4F OR MILD PAIN; Start 01/26/21 at 14:45 Al Hydroxide/Mg Hydroxide (Mylanta Plus Xs) 30 ml PRN DAILY PRN PO HEARTBURN / GAS; Start 01/26/21 at 14:45 Clonidine HCl (Catapres) 0.1 mg PRN Q6HRS PRN PO SBP>160 OR DBP>90; Start 01/26/21 at 14:45 Sodium Monofluorophosphate (Fleet Adult) 133 ml PRN DAILY PRN DE CONSTIPATION; Start 01/26/21 at 14:45 Docusate Sodium (Colace) 100 mg PRN BID PRN PO HARD STOOLS; Start 01/26/21 at 14:45 Albuterol Sulfate (Ventolin Neb Soln) 2.5 mg PRN Q4HRS PRN NEB SHORTNESS OF BREATH; Start 01/26/21 at 14:45 Guaifenesin (Robitussin) 200 mg PRN Q4HRS PRN PO COUGH; Start 01/26/21 at 14:45 Lorazepam (Ativan) 0.5 mg PRN Q4HRS PRN PO ANXIETY / AGITATION; Start 01/26/21 at 14:45 Hydromorphone HCl (Dilaudid) 0.5 mg PRN Q2HRS PRN IV SEVERE PAIN 7-10; Start 01/26/21 at 14:45 Enoxaparin Sodium (Lovenox 40mg Syringe) 40 mg Q24H SQ Last administered on 01/26/21at 19:54; Start 01/26/21 at 16:00 Atorvastatin Calcium (Lipitor) 40 mg HS PO Last administered on 01/26/21at 21:37; Start 01/26/21 at 21:00 Duloxetine HCl (Cymbalta) 20 mg BID PO Last administered on 01/27/21at 08:47; Start 01/26/21 at 21:00 Fluticasone Propionate (Flonase) 1 spray DAILY NS Last administered on 01/27/21 08:49; Start 01/27/21 at 09:00 Levothyroxine Sodium (Synthroid) 50 mcg DAILY07 PO Last administered on 01/27/21 05:42; Start 01/27/21 at 07:00 Lisinopril (Prinivil) 20 mg DAILY PO Last administered on 01/27/21 08:48; Start 01/27/21 at 09:00 Pregabalin (Lyrica) 75 mg BID PO Last administered on 01/27/21 08:48; Start 01/26/21 at 21:00 Sennosides (Senna) 17.2 mg BID PO Last administered on 01/27/21 08:47; Start 01/26/21 at 21:00 Sucralfate (Carafate) 1 gm BID PO Last administered on 01/27/21 08:46; Start 01/26/21 at 21:00 Tamsulosin HCl (Flomax) 0.4 mg DAILY PO Last administered on 01/27/21 08:46; Start 01/27/21 at 09:00 Zolpidem Tartrate (Ambien) 5 mg PRN QHS PRN PO INSOMNIA Last administered on 01/26/21 21:38; Start 01/26/21 at 20:45 Lactobacillus Rhamnosus (Culturelle) 1 cap DAILY PO Last administered on 01/27/21 08:46; Start 01/27/21 at 09:00 Calcium/Vitamin D (Oscal D 500mg/ 200uts) 1 tab BIDWMEALS PO Last administered on 01/27/21 08:47; Start 01/27/21 at 08:00 Clonazepam (KlonoPIN) 1 mg PRN TID PRN PO ANXIETY / AGITATION Last administered on 01/27/21 05:42; Start 01/26/21 at 21:00 Clonazepam (KlonoPIN) 2 mg HS PO Last administered on 01/26/21 21:37; Start 01/26/21 at 21:00 Docusate Sodium (Colace) 100 mg BID PO Last administered on 01/27/21 08:48; Start 01/26/21 at 21:00 Non-Formulary Medication (Lactobacillus Rhamnosus Gg (Culturelle)) 1 cap DAILY PO ; Start 01/27/21 at 09:00; Stop 01/26/21 at 20:58; Status DC Lurasidone HCl (Latuda) 60 mg DAILYWBKFT PO Last administered on 01/27/21at 08:47; Start 01/27/21 at 08:00 Multivitamins (Thera M Plus) 1 tab DAILY PO Last administered on 01/27/21at 08:47; Start 01/27/21 at 09:00 Non-Formulary Medication (Naloxegol Oxalate (Movantik)) 25 mg DAILY PO ; Start 01/27/21 at 09:00; Status UNV Pantoprazole Sodium (Protonix) 40 mg DAILYAC PO Last administered on 01/27/21at 08:46; Start 01/27/21 at 07:30 Vitamin E (Vitamin E) 200 unit DAILY PO Last administered on 01/27/21at 08:47; Start 01/27/21 at 09:00 Non-Formulary Medication ([cranber] ) 450 mg DAILY PRN PO urinary; Start 01/26/21 at 20:45; Stop 01/26/21 at 20:57; Status DC Cyanocobalamin (Vitamin B-12) 500 mcg DAILY PO Last administered on 01/27/21at 09:00; Start 01/27/21 at 09:00 Vitamin D (Vitamin D3) 1,000 unit DAILY PO Last administered on 01/27/21at 08: 47; Start 01/27/21 at 09:00 Active Scripts Active Medrol (Methylprednisolone) 4 Mg Tab.ds.pk 1 Pkg PO UD 6 Days Reported Zolpidem Tartrate 5 Mg Tablet 10 Mg PO QHS PRN Vitamin E (Vitamin E Mixed) 400 Unit Tablet 200 Unit PO DAILY [vitamin D] 1,000 Intlu PO DAILY [vitamin] [vitamin b12] 500 Mcg PO DAILY Flomax (Tamsulosin Hcl) 0.4 Mg Cap.er.24h 0.4 Mg PO DAILY Sucralfate 1 Gm Tablet 1 Gm PO BID Senna Laxative (Sennosides) 8.6 Mg Tablet 2 Tab PO BID 30 Days Trang-Bid Caplet (Acidoph/L.bulg/Bif.b/S.thermop) 1 Each Tablet 1 Each PO DAILY Lyrica (Pregabalin) 75 Mg Capsule 75 Mg PO BID Omeprazole 20 Mg Capsule.dr 20 Mg PO DAILY One-Daily Multi-Vitamin (Multivitamin) 1 Each Tablet 1 Tab PO DAILY 30 Days Movantik (Naloxegol Oxalate) 25 Mg Tablet 25 Mg PO DAILY Lisinopril 20 Mg Tablet 1 Tab PO DAILY Levothyroxine Sodium 50 Mcg Tablet 1 Tab PO DAILY Latuda (Lurasidone Hcl) 60 Mg Tablet 60 Mg PO DAILY Culturelle (Lactobacillus Rhamnosus Gg) 1 Each Capsule 1 Cap PO DAILY 30 Days Cymbalta (Duloxetine Hcl) 20 Mg Capsule.dr 20 Mg PO BID Colace Clear (Docusate Sodium) 50 Mg Capsule 1 Cap PO BID 30 Days [cranber] 450 Mg PO DAILY PRN Fluticasone Propionate Nasal [place] (Fluticasone Propionate) 16 Gm [place].susp 1 S pray NS DAILY FENTANYL 50mcg/hr (Fentanyl) 1 Each Patch.td72 1 Patch TD Q72H Clonazepam 2 Mg Tablet 2 Mg PO HS Clonazepam 1 Mg Tablet 1 Mg PO TID Calcium 600 + Vit D3 Caplet (Calcium Carbonate/Vitamin D3) 1 Each Tablet 1 Tab PO BID 30 Days Atorvastatin Calcium 40 Mg Tablet 40 Mg PO HS Vitals/I & O Vital Sign - Last 24 Hours 01/26/21 01/26/21 01/26/21 01/26/21 09:35 10:35 11:35 12:30 Temp 98.0 98.0 Pulse 83 80 80 83 Resp 17 17 17 18 B/P (MAP) 175/97 (123) 141/88 (105) 138/85 (102) 130/102 (111) Pulse Ox 94 94 94 94 O2 Delivery Room Air Room Air Room Air Nasal Cannula O2 Flow Rate 2.0 01/26/21 01/26/21 01/26/21 01/26/21 13:00 14:04 15:00 17:21 Temp 97.7 97.7 Pulse 80 Resp 18 18 B/P (MAP) 157/106 (123) 166/100 (122) Pulse Ox 90 O2 Delivery Nasal Cannula Room Air Nasal Cannula O2 Flow Rate 2.0 2.0 01/26/21 01/26/21 01/26/21 01/27/21 19:00 20:00 23:00 00:57 Temp 97.9 97.8 97.9 97.8 Pulse 86 84 Resp 18 18 16 B/P (MAP) 169/102 (124) 162/84 (110) Pulse Ox 97 97 O2 Delivery Nasal Cannula Nasal Cannula Nasal Cannula Room Air O2 Flow Rate 1.0 2.0 1.0 01/27/21 01/27/21 01/27/21 01/27/21 01:30 03:01 03:15 07:00 Temp 97.8 97.7 97.8 97.7 Pulse 81 79 83 Resp 15 19 18 B/P (MAP) 188/99 (128) 142/86 (104) 212/109 (143) Pulse Ox 93 93 96 O2 Delivery Nasal Cannula Nasal Cannula Room Air O2 Flow Rate 1.0 1.0 01/27/21 01/27/21 08:48 09:12 Pulse 83 Resp 20 B/P (MAP) 212/109 O2 Delivery Room Air Intake and Output 01/26/21 01/26/21 01/27/21 15:00 23:00 07:00 Intake Total 800 ml Output Total 350 ml Balance 800 ml -350 ml Justifications for Admission Other Justification intractable lumbar radiculopathy FRANCISCO JAVIER GIORDANO MD Jan 27, 2021 09:26
--- NOTE | 2021-01-27 10:18 | NUR ---
SW following. Discussed with RN, pt from home, 1L, cardiac diet, rapid COVID-[address] Burt and Dr. Pruitt following. MRI ordered. PT/OT ordered. SW will continue to follow.
--- NOTE | 2021-01-27 12:49 | PDOC ---
Provider Note Date of Service: DATE: 01/27/21 TIME: 12:48 Provider Note Patient out of room, in MRI will await MRI will follow Justifications for Admission Other Justification intractable lumbar radiculopathy ESAU MORALES MD Jan 27, 2021 12:48
[2021-01-27 15:00] VITALS: BP 172/84
--- NOTE | 2021-01-27 16:49 | RAD ---
MR LUMBAR SPINE WO -[id number], MRI THORACIC SPINE WO Date: 01/27/2021 11:26 AM Indication: thoracic stenosis, lumbar stenosis Comparison: CT 01/25/2021. Technique: Multi-planar multi-weighted magnetic resonance imaging of the thoracic and lumbar spine wa s performed without intravenous contrast using the standard lumbar spine protocol. FINDINGS: The thoracic spine is normally aligned. Trace anterolisthesis at L4-5. No acute fracture. Moderate mu ltilevel degenerative disc desiccation and disc height loss. Fatty degenerative endplate changes at T 12-L1. The conus terminates at a normal level. No abnormal signal is seen within the visualized spinal cord. No clumping of intrathecal nerve roots. Right renal atrophy. Thoracic: Multilevel small disc bulges. Moderate spinal canal stenosis at T8-9 and T10-11, mild at Mi ld spinal canal stenosis at C5-6 and T9-10. T12-L1: Left paracentral protrusion. Mild spinal canal stenosis. Mild left neural foraminal narrowing . L1-L2: Disc bulge. Mild facet arthropathy. No significant spinal stenosis. Mild bilateral neural fora tc narrowing. L2-L3: Disc bulge. Mild facet arthropathy. No significant spinal stenosis. Mild right and moderate le ft neural foraminal narrowing. L3-L4: Disc bulge. Moderate facet arthropathy. Mild spinal stenosis. Mild right and severe left neura l foraminal narrowing. L4-L5: Disc bulge. Severe facet arthropathy. Ligamentum flavum thickening. Moderate spinal stenosis a nd lateral recess narrowing. Mild right and moderate left neural foraminal narrowing. L5-S1: Disc bulge. Mild facet arthropathy. No significant spinal stenosis or neural foraminal narrowi ng. IMPRESSION: Moderate thoracolumbar spondylosis, detailed above. No severe spinal canal stenosis. Severe neural fo raminal narrowing at L3-4 on the left. Electronically signed by: Edin Robbins MD (01/27/2021 4:46 PM) [facility]
--- NOTE | 2021-01-27 16:53 | PDOC ---
[employer] PROGRESS NOTE Date of Service DOS: DATE: 01/27/21 TIME: 16:48 Chief Complaint Chief Complaint Acute severe lumbar radiculopathy, with intractable pain probable severe spinal canal stenosis at least at L4-L5. There is a large disc herniation at T12-L1 likely contributing to marked severe spinal canal and left lateral recess stenosis Morbid obesity Plan: IV PAIN CONTROL Neurosurgery consult iv pain control PT/OT Consider MRI L/S Consult dr [facility] dvt prophylaxis History of Present Illness History of Present Illness 60 year old female who presented emergency department via EMS with complaints of pain in her left leg that radiates from her low back to her knee. she has been moving residences recently and has been doing a lot of bending./ 6 or 7 days ago she felt like she pulled a muscle. denies any numbness, tingling, or weakness of her lower left extremity. CT C/W probable severe spinal canal stenosis at least at L4-L5. There is a large disc herniation at T12-L1 likely contributing to marked severe spinal canal and left lateral recess stenosis admitted with Acute severe lumbar radiculopathy, with intractable pain // wearing a fentanyl pain patch with no benefit./ pain is worse with movement. 01/27/2021: Patient still with complaints of hip pain. Received left sacroiliac joint injection with some improvement. Await MRI results. She does have a prosthetic limb and admits to no longer working with physical therapy once COVID-19 hit. Over the past 2 years she has been mostly mobile with aid of a wheelchair. Discussed potential for physical therapy regardless of MRI results. Patient states that she does not want to discharge to senior care, and would feel more comfortable discharging home with home health and her wheelchair. Await PT/OT recommendations barring MRI results. Vitals/I&O Vitals/I&O: Vital Signs Date Time Temp Pulse Resp B/P (MAP) Pulse Ox O2 Delivery O2 Flow Rate FiO2 01/27/21 15:32 18 Room Air 01/27/21 15:00 98.3 83 172/84 (113) 94 98.3 01/27/21 08:00 1.5 I & O 01/26/21 01/26/21 01/27/21 15:00 23:00 07:00 Intake Total 800 ml Output Total 350 ml Balance 800 ml -350 ml Physical Exam General: Alert, Oriented X3, Cooperative, moderate distress Heart: Regular rate Lungs: Clear Abdomen: Normal bowel sounds, Soft Extremities: No cyanosis Skin: No significant lesion Assessment and Plan Assessmemt and Plan Problems Medical Problems: (1) Acute left-sided low back pain with sciatica Status: Acute (2) Intractable low back pain Status: Acute (3) Unable to ambulate Status: Acute Comment Review of Relevant I have reviewed the following items luis (where applicable) has been applied. Medications: Current Medications Medications (Trade) Dose Ordered Sig/Bennie Route PRN Reason Start Time Stop Time Status Last Admin Dose Admin Methylprednisolone (Medrol) 4 mg TIDPC PO 01/27/21 08:30 01/27/21 17:31 01/27/21 14:24 Atorvastatin Calcium (Lipitor) 40 mg HS PO 01/26/21 21:00 01/26/21 21:37 Duloxetine HCl (Cymbalta) 20 mg BID PO 01/26/21 21:00 01/27/21 08:47 Fluticasone Propionate (Flonase) 1 spray DAILY NS 01/27/21 09:00 01/27/21 08:49 Levothyroxine Sodium (Synthroid) 50 mcg DAILY07 PO 01/27/21 07:00 01/27/21 05:42 Lisinopril (Prinivil) 20 mg DAILY PO 01/27/21 09:00 01/27/21 08:48 Pregabalin (Lyrica) 75 mg BID PO 01/26/21 21:00 01/27/21 08:48 Sennosides (Senna) 17.2 mg BID PO 01/26/21 21:00 01/27/21 08:47 Sucralfate (Carafate) 1 gm BID PO 01/26/21 21:00 01/27/21 08:46 Tamsulosin HCl (Flomax) 0.4 mg DAILY PO 01/27/21 09:00 01/27/21 08:46 Zolpidem Tartrate (Ambien) 5 mg PRN QHS PRN PO INSOMNIA 01/26/21 20:45 01/26/21 21:38 Lactobacillus Rhamnosus (Culturelle) 1 cap DAILY PO 01/27/21 09:00 01/27/21 08:46 Calcium/Vitamin D (Oscal D 500mg/ 200uts) 1 tab BIDWMEALS PO 01/27/21 08:00 01/27/21 08:47 Clonazepam (KlonoPIN) 1 mg PRN TID PRN PO ANXIETY / AGITATION,1st CHOICE 01/26/21 21:00 01/27/21 15:36 Clonazepam (KlonoPIN) 2 mg HS PO 01/26/21 21:00 01/26/21 21:37 Docusate Sodium (Colace) 100 mg BID PO 01/26/21 21:00 01/27/21 08:48 Lurasidone HCl (Latuda) 60 mg DAILYWBKFT PO 01/27/21 08:00 01/27/21 08:47 Multivitamins (Thera M Plus) 1 tab DAILY PO 01/27/21 09:00 01/27/21 08:47 Pantoprazole Sodium (Protonix) 40 mg DAILYAC PO 01/27/21 07:30 01/27/21 08:46 Vitamin E (Vitamin E) 200 unit DAILY PO 01/27/21 09:00 01/27/21 08:47 Cyanocobalamin (Vitamin B-12) 500 mcg DAILY PO 01/27/21 09:00 01/27/21 09:00 Vitamin D (Vitamin D3) 1,000 unit DAILY PO 01/27/21 09:00 01/27/21 08:47 Justifications for Admission Other Justification intractable lumbar radiculopathy ASAEL ALVAREZ MD Jan 27, 2021 16:53
[2021-01-27] MEDS: ENOXAPARIN 40 MG/0.4 ML SYRINGE. SQ SCH (17:35)
[2021-01-27 18:47] VITALS: BP 187/96
[2021-01-27] MEDS: ZOLPIDEM 5 MG TABLET. PO PRN (20:29)
[2021-01-27] MEDS: tiZANidine 4 MG TABLET. PO PRN (20:29)
[2021-01-27] MEDS: ATORVASTATIN CALCIUM 40 MG TABLET. PO SCH (20:29)
[2021-01-27] MEDS: clonazePAM 0.5 MG TABLET PO SCH (20:30)
[2021-01-27] MEDS: PATCH REMOVAL. MC SCH (20:37)
[2021-01-27] MEDS ORDERED: methylPREDNISolone 4 MG TABLET. PO SCH (21:00)
[2021-01-27 23:15] VITALS: BP 184/94
[2021-01-28] MEDS: HYDROmorphone 2 MG/ML VIAL IVP PRN ×2 (01:25→06:15)
[2021-01-28 03:34] VITALS: BP 166/92
[2021-01-28] MEDS: HYDROcodone/APAP 10/325 1 TAB TABLET PO PRN ×4 (03:40→22:47)
[2021-01-28] MEDS: LEVOTHYROXINE 50 MCG TABLET PO SCH (06:14)
[2021-01-28] MEDS: IV NORMAL SALINE 1000ML BAG 1,000 ML IV SCH (06:20)
[2021-01-28 07:00] VITALS: BP 167/117
[2021-01-28] MEDS: CYANOCOBALAMIN (VITAMIN B-12) 1,000 MCG TABLET. PO SCH (08:37)
[2021-01-28] MEDS: SUCRALFATE 1 GM TABLET. PO SCH ×2 (08:37→22:59)
[2021-01-28] MEDS: VITAMIN E 200 UNIT CAPSULE. PO SCH (08:37)
[2021-01-28] MEDS: CHOLECALCIFEROL (VITAMIN D3) 1,000 UNIT TABLET PO SCH (08:37)
[2021-01-28] MEDS: MULTIVITAMIN with MINERAL TABLET. PO SCH (08:38)
[2021-01-28] MEDS: TAMSULOSIN 0.4 MG CAP.ER.24H. PO SCH (08:38)
[2021-01-28] MEDS: SENNOSIDES 8.6 MG TABLET PO SCH ×2 (08:38→20:06)
[2021-01-28] MEDS: CALCIUM CARB/VIT D3 500/200 TABLET. PO SCH ×2 (08:38→16:06)
[2021-01-28] MEDS: DULoxetine HCL 20 MG CAPSULE.DR PO SCH ×2 (08:38→20:05)
[2021-01-28] MEDS: methylPREDNISolone 4 MG TABLET. PO SCH ×4 (08:38→20:05)
[2021-01-28] MEDS: LURASIDONE 40 MG TABLET. PO SCH (08:38)
[2021-01-28] MEDS: LACTOBACILLUS RHAMNOSUS GG 1 CAPSULE. PO SCH (08:38)
[2021-01-28] MEDS: DOCUSATE SODIUM 100 MG CAPSULE. PO SCH ×2 (08:39→20:06)
[2021-01-28] MEDS: PANTOPRAZOLE 40 MG TABLET.DR. PO SCH (08:39)
[2021-01-28] MEDS: PREGABALIN 75 MG CAPSULE PO SCH ×2 (08:39→20:05)
[2021-01-28] MEDS: LISINOPRIL 20 MG TABLET PO SCH (08:39)
[2021-01-28] MEDS: LIDOCAINE (700MG/PATCH) PATCH. TD SCH (08:40)
[2021-01-28] MEDS: clonazePAM 0.5 MG TABLET PO PRN ×3 (08:40→18:05)
[2021-01-28] MEDS: FLUTICASONE 50MCG/NASAL SPRAY 16GM BOTTLE. NS SCH (08:41)
--- NOTE | 2021-01-28 10:58 | PDOC ---
[facility] [facility] PROGRESS NOTE Date of Service DOS: DATE: 01/28/21 TIME: 10:35 Chief Complaint Chief Complaint Acute severe lumbar radiculopathy, with intractable pain probable severe spinal canal stenosis at least at L4-L5. There is a large disc herniation at T12-L1 likely contributing to marked severe spinal canal and left lateral recess stenosis Morbid obesity Plan: IV PAIN CONTROL Neurosurgery consult iv pain control PT/OT Consider MRI L/S Consult dr rogers lockbourne nadja dvt prophylaxis History of Present Illness History of Present Illness 60 year old female who presented emergency department via EMS with complaints of pain in her left leg that radiates from her low back to her knee. she has been moving residences recently and has been doing a lot of bending./ 6 or 7 days ago she felt like she pulled a muscle. denies any numbness, tingling, or weakness of her lower left extremity. CT C/W probable severe spinal canal stenosis at least at L4-L5. There is a large disc herniation at T12-L1 likely contributing to marked severe spinal canal and left lateral recess stenosis admitted with Acute severe lumbar radiculopathy, with intractable pain // wearing a fentanyl pain patch with no benefit./ pain is worse with movement. 01/27/2021: Patient still with complaints of hip pain. Received left sacroiliac joint injection with some improvement. Await MRI results. She does have a prosthetic limb and admits to no longer working with physical therapy once COVID-19 hit. Over the past 2 years she has been mostly mobile with aid of a wheelchair. Discussed potential for physical therapy regardless of MRI results. Patient states that she does not want to discharge to [facility], and would feel more comfortable discharging home with home health and her wheelchair. Await PT/OT recommendations barring MRI results. 01/28/2021: An MRI yesterday that showed moderate thoracolumbar spondylosis and severe neural foraminal narrowing at L3-4 on left. States her pain is improved. Will defer to neurosurgery in this regard. She does report regular fentanyl patch use 50 mcg to her lower back that she changes every 3 days over the past couple years. She is followed with pain management doctor. Regardless in her decision about surgical intervention or not, she is still refusing SNU; she prefers eventually to discharge home with home health services and outpatient PT. Currently on Medrol taper. Will obtain hemoglobin A1c. Vitals/I&O Vitals/I&O: Vital Signs Date Time Temp Pulse Resp B/P (MAP) Pulse Ox O2 Delivery O2 Flow Rate FiO2 01/28/21 09:50 90 Nasal Cannula 01/28/21 08:39 110 167/117 01/28/21 07:00 98.2 18 98.2 01/27/21 08:00 1.5 I & O 01/27/21 01/27/21 01/28/21 15:00 23:00 07:00 Intake Total 976.3 ml 480 ml Balance 976.3 ml 480 ml Physical Exam General: Alert, Oriented X3, Cooperative, mild distress Heart: Regular rate Lungs: Clear Abdomen: Normal bowel sounds, Soft Extremities: No cyanosis Skin: No significant lesion Assessment and Plan Assessmemt and Plan Problems Medical Problems: (1) Acute left-sided low back pain with sciatica Status: Acute (2) Intractable low back pain Status: Acute (3) Unable to ambulate Status: Acute Comment Review of Relevant I have reviewed the following items luis (where applicable) has been applied. Medications: Current Medications Medications (Trade) Dose Ordered Sig/Bennie Route PRN Reason Start Time Stop Time Status Last Admin Dose Admin Methylprednisolone (Medrol) 8 mg QHS PO 01/27/21 21:00 01/27/21 21:01 DC 01/27/21 20:35 Methylprednisolone (Medrol) 4 mg QIDAFTMEAL PO 01/28/21 09:00 01/28/21 21:01 01/28/21 08:38 Justifications for Admission Other Justification intractable lumbar radiculopathy ASAEL ALVAREZ MD Jan 28, 2021 10:58
[2021-01-28 11:00] VITALS: BP 179/106
[2021-01-28] MEDS: HYDROmorphone 2 MG/ML VIAL IV PRN ×2 (11:02→15:14)
[2021-01-28] MEDS: DICLOFENAC SODIUM 1% TOPICAL GEL 100GM TUBE. TP SCH ×2 (12:00→14:01)
[2021-01-28] MEDS: fentaNYL 50MCG/HR PATCH 1 PATCH PATCH.TD72 TD SCH (12:32)
--- NOTE | 2021-01-28 14:20 | PDOC ---
PROGRESS NOTES Date of Service DATE: 01/28/21 TIME: 14:10 Subjective Subjective c/o back and left thigh pain, slightly improved since admission Objective Objective Vital Signs Date Time Temp Pulse Resp B/P (MAP) Pulse Ox O2 Delivery O2 Flow Rate FiO2 01/28/21 12:32 90 Room Air 01/28/21 11:00 98.5 95 18 179/106 (130) 98.5 01/27/21 08:00 1.5 Intake and Output 01/28/21 07:00 Intake Total 1456.3 ml Balance 1456.3 ml Intake Oral 480 ml IV Total 976.3 ml # Voids 4 Physical Exam General: Alert, Oriented X3, Cooperative, No acute distress Neuro: Other (strength 5/5 in LE except 4/5 left hip flexor) Assessment Assessment Problems Medical Problems: (1) Acute left-sided low back pain with sciatica Status: Acute (2) Intractable low back pain Status: Acute (3) Unable to ambulate Status: Acute Plan Plan of Care MRI reviewed at L4-5 there is moderate spinal stenosis and lateral recess narrowing. Mild right and moderate left neural foraminal narrowing. At L3-4 there is mild right and severe left neural foraminal narrowing. I think she would benefit from lumbar epidural steroid injections. She may also benefit from SNF. She can follow up with me as an OP. Comment Review of Relevant I have reviewed the following items luis (where applicable) has been applied. Labs Microbiology 01/26/21 Urine Culture - Preliminary, Resulted Medications Current Medications Dexamethasone Sodium Phosphate (Decadron) 10 mg 1X ONCE IM Last administered on 01/25/21at 22:25; Start 01/25/21 at 22:30; Stop 01/25/21 at 22:31; Status DC Orphenadrine Citrate (Norflex) 60 mg 1X ONCE IM Last administered on 01/25/21at 22:23; Start 01/25/21 at 22:30; Stop 01/25/21 at 22:31; Status DC Clonidine HCl (Catapres) 0.1 mg 1X ONCE PO Last administered on 01/25/21at 23:05; Start 01/25/21 at 23:00; Stop 01/25/21 at 23:01; Status DC Acetaminophen/ Hydrocodone Bitart (Lortab 5/325) 1 tab 1X ONCE PO Last administered on 01/26/21at 01:26; Start 01/26/21 at 01:30; Stop 01/26/21 at 01:31; Status DC Clonazepam (KlonoPIN) 2 mg 1X ONCE PO Last administered on 01/26/21at 01:29; Start 01/26/21 at 01:30; Stop 01/26/21 at 01:31; Status DC Acetaminophen/ Hydrocodone Bitart (Lortab 5/325) 1 tab 1X ONCE PO Last administered on 01/26/21at 04:54; Start 01/26/21 at 05:00; Stop 01/26/21 at 05:01; Status DC Clonazepam (KlonoPIN) 2 mg 1X PRN PRN PO ANXIETY / AGITATION Last administered on 01/26/21at 09:13; Start 01/26/21 at 06:15; Stop 01/26/21 at 10:00; Status DC Hydromorphone HCl (Dilaudid) 0.4 mg PRN Q4HRS PRN IVP MODERATE TO SEVERE PAIN Last administered on 01/28/21at 06:15; Start 01/26/21 at 10:00 Methylprednisolone Acetate (DEPO-Medrol 40MG VIAL) 40 mg 1X ONCE IM ; Start 01/26/21 at 15:00; Stop 01/26/21 at 15:01; Status DC Bupivacaine HCl (Sensorcaine-Mpf 0.25%) 10 ml 1X ONCE IJ ; Start 01/26/21 at 15:00; Stop 01/26/21 at 15:01; Status DC Acetaminophen/ Hydrocodone Bitart (Lortab 10/325) 1 tab PRN Q6HRS PRN PO MODERATE TO SEVERE PAIN Last administered on 01/28/21at 09:50; Start 01/26/21 at 14:30 Lidocaine (Lidoderm) 1 patch DAILY TD Last administered on 01/28/21 08:40; Start 01/26/21 at 14:00 Miscellaneous (Lidoderm Patch Removal) 1 ea QHS MC Last administered on 01/27/21at 20:37; Start 01/26/21 at 21:00 Tizanidine HCl (Zanaflex) 4 mg PRN Q8HRS PRN PO MUSCLE SPASMS Last administered on 01/27/21at 20:29; Start 01/26/21 at 14:30 Methylprednisolone (Medrol) 8 mg BID PO Last administered on 01/26/21at 21:36; Start 01/26/21 at 15:00; Stop 01/26/21 at 21:01; Status DC Methylprednisolone (Medrol) 4 mg BID@1700,1900 PO ; Start 01/26/21 at 17:00; Stop 01/26/21 at 19:01; Status DC Methylprednisolone (Medrol) 4 mg TIDPC PO Last administered on 01/27/21at 17:35; Start 01/27/21 at 08:30; Stop 01/27/21 at 17:31; Status DC Methylprednisolone (Medrol) 8 mg QHS PO Last administered on 01/27/21at 20:35; Start 01/27/21 at 21:00; Stop 01/27/21 at 21:01; Status DC Methylprednisolone (Medrol) 4 mg QIDAFTMEAL PO Last administered on 01/28/21at 12:32; Start 01/28/21 at 09:00; Stop 01/28/21 at 21:01 Methylprednisolone (Medrol) 4 mg TID PO ; Start 01/29/21 at 09:00; Stop 01/29/21 at 21:01 Methylprednisolone (Medrol) 4 mg BID PO ; Start 01/30/21 at 09:00; Stop 01/30/21 at 21:01 Methylprednisolone (Medrol) 4 mg DAILY PO ; Start 01/31/21 at 09:00; Stop 01/31/21 at 09:01 Pantoprazole Sodium (Protonix) 40 mg DAILYAC PO Last administered on 01/26/21at 19:53; Start 01/26/21 at 16:30; Stop 01/26/21 at 21:02; Status DC Sodium Chloride (Normal Saline Flush) 3 ml QSHIFT PRN IV AFTER MEDS AND BLOOD DRAWS; Start 01/26/21 at 14:45 Sodium Chloride 1,000 ml @ 75 mls/hr [id number] IV Last administered on 01/28/21at 06:20; Start 01/26/21 at 14:45 Ondansetron HCl (Zofran) 4 mg PRN Q4HRS PRN IV NAUSEA/VOMITING; Start 01/26/21 at 14:45 Acetaminophen (Tylenol) 650 mg PRN Q4HRS PRN PO TEMP OVER 100.4F OR MILD PAIN Last administered on 01/27/21at 05:42; Start 01/26/21 at 14:45 Acetaminophen (Tylenol Supp) 650 mg PRN Q4HRS PRN MT TEMP OVER 100.4F OR MILD PAIN; Start 01/26/21 at 14:45 Al Hydroxide/Mg Hydroxide (Mylanta Plus Xs) 30 ml PRN DAILY PRN PO HEARTBURN / GAS; Start 01/26/21 at 14:45 Clonidine HCl (Catapres) 0.1 mg PRN Q6HRS PRN PO SBP>160 OR DBP>90; Start 01/26/21 at 14:45 Sodium Monofluorophosphate (Fleet Adult) 133 ml PRN DAILY PRN MT CONSTIPATION; Start 01/26/21 at 14:45 Docusate Sodium (Colace) 100 mg PRN BID PRN PO HARD STOOLS; Start 01/26/21 at 14:45 Albuterol Sulfate (Ventolin Neb Soln) 2.5 mg PRN Q4HRS PRN NEB SHORTNESS OF BREATH; Start 01/26/21 at 14:45 Guaifenesin (Robitussin) 200 mg PRN Q4HRS PRN PO COUGH; Start 01/26/21 at 14:45 Lorazepam (Ativan) 0.5 mg PRN Q4HRS PRN PO ANXIETY / AGITATION,2nd CHOICE; Start 01/26/21 at 14:45 Hydromorphone HCl (Dilaudid) 0.5 mg PRN Q2HRS PRN IV SEVERE PAIN 7-10 Last administered on 01/28/21at 11:02; Start 01/26/21 at 14:45 Enoxaparin Sodium (Lovenox 40mg Syringe) 40 mg Q24H SQ Last administered on 01/27/21at 17:35; Start 01/26/21 at 16:00 Atorvastatin Calcium (Lipitor) 40 mg HS PO Last administered on 01/27/21at 20:29; Start 01/26/21 at 21:00 Duloxetine HCl (Cymbalta) 20 mg BID PO Last administered on 01/28/21at 08:38; Start 01/26/21 at 21:00 Fluticasone Propionate (Flonase) 1 spray DAILY NS Last administered on 01/27/21at 08:49; Start 01/27/21 at 09:00 Levothyroxine Sodium (Synthroid) 50 mcg DAILY07 PO Last administered on 01/28/21 06:14; Start 01/27/21 at 07:00 Lisinopril (Prinivil) 20 mg DAILY PO Last administered on 01/28/21 08:39; Start 01/27/21 at 09:00 Pregabalin (Lyrica) 75 mg BID PO Last administered on 01/28/21 08:39; Start 01/26/21 at 21:00 Sennosides (Senna) 17.2 mg BID PO Last administered on 01/28/21 08:38; Start 01/26/21 at 21:00 Sucralfate (Carafate) 1 gm BID PO Last administered on 01/28/21 08:37; Start 01/26/21 at 21:00 Tamsulosin HCl (Flomax) 0.4 mg DAILY PO Last administered on 01/28/21 08:38; Start 01/27/21 at 09:00 Zolpidem Tartrate (Ambien) 5 mg PRN QHS PRN PO INSOMNIA Last administered on 01/27/21 20:29; Start 01/26/21 at 20:45 Lactobacillus Rhamnosus (Culturelle) 1 cap DAILY PO Last administered on 01/28/21 08:38; Start 01/27/21 at 09:00 Calcium/Vitamin D (Oscal D 500mg/ 200uts) 1 tab BIDWMEALS PO Last administered on 01/28/21 08:38; Start 01/27/21 at 08:00 Clonazepam (KlonoPIN) 1 mg PRN TID PRN PO ANXIETY / AGITATION,1st CHOICE Last administered on 01/28/21 14:00; Start 01/26/21 at 21:00 Clonazepam (KlonoPIN) 2 mg HS PO Last administered on 01/27/21 20:30; Start 01/26/21 at 21:00 Docusate Sodium (Colace) 100 mg BID PO Last administered on 01/28/21 08:39; Start 01/26/21 at 21:00 Non-Formulary Medication (Lactobacillus Rhamnosus Gg (Culturelle)) 1 cap DAILY PO ; Start 01/27/21 at 09:00; Stop 01/26/21 at 20:58; Status DC Lurasidone HCl (Latuda) 60 mg DAILYWBKFT PO Last administered on 01/28/21at 08:38; Start 01/27/21 at 08:00 Multivitamins (Thera M Plus) 1 tab DAILY PO Last administered on 01/28/21at 08:38; Start 01/27/21 at 09:00 Non-Formulary Medication (Naloxegol Oxalate (Movantik)) 25 mg DAILY PO ; Start 01/27/21 at 09:00; Stop 01/27/21 at 16:13; Status DC Pantoprazole Sodium (Protonix) 40 mg DAILYAC PO Last administered on 01/28/21at 08:39; Start 01/27/21 at 07:30 Vitamin E (Vitamin E) 200 unit DAILY PO Last administered on 01/28/21at 08:37; Start 01/27/21 at 09:00 Non-Formulary Medication ([cranber] ) 450 mg DAILY PRN PO urinary; Start 01/26/21 at 20:45; Stop 01/26/21 at 20:57; Status DC Cyanocobalamin (Vitamin B-12) 500 mcg DAILY PO Last administered on 01/28/21at 08:37; Start 01/27/21 at 09:00 Vitamin D (Vitamin D3) 1,000 unit DAILY PO Last administered on 01/28/21at 08:37; Start 01/27/21 at 09:00 Fentanyl (Duragesic 50mcg/ Hr Patch) 1 patch Q72H TD Last administered on 01/28/21at 12:32; Start 01/28/21 at 12:00 Diclofenac Sodium (Voltaren) 1 catai DAILY TP Last administered on 01/28/21at 14:01; Start 01/28/21 at 12:00 Active Scripts Active Medrol (Methylprednisolone) 4 Mg Tab.ds.pk 1 Pkg PO UD 6 Days Reported Zolpidem Tartrate 5 Mg Tablet 10 Mg PO QHS PRN Vitamin E (Vitamin E Mixed) 400 Unit Tablet 200 Unit PO DAILY [vitamin D] 1,000 Intlu PO DAILY [vitamin] [vitamin b12] 500 Mcg PO DAILY Flomax (Tamsulosin Hcl) 0.4 Mg Cap.er.24h 0.4 Mg PO DAILY Sucralfate 1 Gm Tablet 1 Gm PO BID Senna Laxative (Sennosides) 8.6 Mg Tablet 2 Tab PO BID 30 Days Trang-Bid Caplet (Acidoph/L.bulg/Bif.b/S.thermop) 1 Each Tablet 1 Each PO DAILY Lyrica (Pregabalin) 75 Mg Capsule 75 Mg PO BID Omeprazole 20 Mg Capsule.dr 20 Mg PO DAILY One-Daily Multi-Vitamin (Multivitamin) 1 Each Tablet 1 Tab PO DAILY 30 Days Movantik (Naloxegol Oxalate) 25 Mg Tablet 25 Mg PO DAILY Lisinopril 20 Mg Tablet 1 Tab PO DAILY Levothyroxine Sodium 50 Mcg Tablet 1 Tab PO DAILY Latuda (Lurasidone Hcl) 60 Mg Tablet 60 Mg PO DAILY Culturelle (Lactobacillus Rhamnosus Gg) 1 Each Capsule 1 Cap PO DAILY 30 Days Cymbalta (Duloxetine Hcl) 20 Mg Capsule.dr 20 Mg PO BID Colace Clear (Docusate Sodium) 50 Mg Capsule 1 Cap PO BID 30 Days [cranber] 450 Mg PO DAILY PRN Fluticasone Propionate Nasal Dequincy (Fluticasone Propionate) 16 Gm Dequincy.susp 1 Dequincy NS DAILY FENTANYL 50mcg/hr (Fentanyl) 1 Each Patch.td72 1 Patch TD Q72H Clonazepam 2 Mg Tablet 2 Mg PO HS Clonazepam 1 Mg Tablet 1 Mg PO TID Calcium 600 + Vit D3 Caplet (Calcium Carbonate/Vitamin D3) 1 Each Tablet 1 Tab PO BID 30 Days Atorvastatin Calcium 40 Mg Tablet 40 Mg PO HS Vitals/I & O Vital Sign - Last 24 Hours 01/27/21 01/27/21 01/27/21 01/27/21 15:00 15:32 18:47 21:43 Temp 98.3 97.8 98.3 97.8 Pulse 83 83 Resp 18 B/P (MAP) 172/84 (113) 187/96 (126) Pulse Ox 94 92 O2 Delivery Room Air Room Air Room Air Room Air 01/27/21 01/27/21 01/28/21 01/28/21 22:15 23:15 01:25 02:00 Temp 98.2 98.2 Pulse 61 Resp 22 18 24 16 B/P (MAP) 184/94 (124) Pulse Ox 92 O2 Delivery Room Air Room Air 01/28/21 01/28/21 01/28/21 01/28/21 03:34 03:40 04:10 06:15 Temp 98.0 98.0 Pulse 62 Resp 18 20 20 20 B/P (MAP) 166/92 (116) Pulse Ox 94 O2 Delivery Room Air Room Air Room Air Room Air 01/28/21 01/28/21 01/28/21 01/28/21 07:00 08:05 08:39 08:41 Temp 98.2 98.2 Pulse 110 110 Resp 18 B/P (MAP) 167/117 (134) 167/117 Pulse Ox 90 90 O2 Delivery Room Air Room Air Room Air 01/28/21 01/28/21 01/28/21 01/28/21 09:50 10:38 11:00 11:02 Temp 98.5 98.5 Pulse 95 Resp 18 B/P (MAP) 179/106 (130) Pulse Ox 90 90 94 90 O2 Delivery Nasal Cannula Room Air Room Air Room Air 01/28/21 01/28/21 11:44 12:32 Pulse Ox 90 90 O2 Delivery Room Air Room Air Intake and Output 01/27/21 01/27/21 01/28/21 15:00 23:00 07:00 Intake Total 976.3 ml 480 ml Balance 976.3 ml 480 ml Justifications for Admission Other Justification intractable lumbar radiculopathy ESAU MORALES MD Jan 28, 2021 14:20
[2021-01-28 15:00] VITALS: BP 174/89
--- NOTE | 2021-01-28 15:05 | PDOC ---
PROGRESS NOTES Date of Service DATE: 01/28/21 TIME: 15:00 Subjective Subjective She admits continued left lower extremity pain and weakness. Not interested in surgery or going to SNF. Objective Objective Vital Signs Date Time Temp Pulse Resp B/P (MAP) Pulse Ox O2 Delivery O2 Flow Rate FiO2 01/28/21 12:32 90 Room Air 01/28/21 11:00 98.5 95 18 179/106 (130) 98.5 01/27/21 08:00 1.5 Intake and Output 01/28/21 07:00 Intake Total 1456.3 ml Balance 1456.3 ml Intake Oral 480 ml IV Total 976.3 ml # Voids 4 Physical Exam Physical Exam She is sitting at edge of bed with physical therapy working with her and no change with her neurological status. 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 Dr. Pruitt note noted. I spoke to physical therapy and . Assessment Assessment Problems Medical Problems: (1) Acute left-sided low back pain with sciatica Status: Acute (2) Intractable low back pain Status: Acute (3) Unable to ambulate Status: Acute Plan Plan of Care Agree with plans for home with home health follow up when medically stable and to be seen in pain clinic on out patient basis for trial of lumbar epidural steroid injections to help ease her pain. Comment Review of Relevant I have reviewed the following items luis (where applicable) has been applied. Labs Microbiology 01/26/21 Urine Culture - Preliminary, Resulted Medications Current Medications Dexamethasone Sodium Phosphate (Decadron) 10 mg 1X ONCE IM Last administered on 01/25/21at 22:25; Start 01/25/21 at 22:30; Stop 01/25/21 at 22:31; Status DC Orphenadrine Citrate (Norflex) 60 mg 1X ONCE IM Last administered on 01/25/21at 22:23; Start 01/25/21 at 22:30; Stop 01/25/21 at 22:31; Status DC Clonidine HCl (Catapres) 0.1 mg 1X ONCE PO Last administered on 01/25/21at 23:05; Start 01/25/21 at 23:00; Stop 01/25/21 at 23:01; Status DC Acetaminophen/ Hydrocodone Bitart (Lortab 5/325) 1 tab 1X ONCE PO Last administered on 01/26/21at 01:26; Start 01/26/21 at 01:30; Stop 01/26/21 at 01:31; Status DC Clonazepam (KlonoPIN) 2 mg 1X ONCE PO Last administered on 01/26/21at 01:29; Start 01/26/21 at 01:30; Stop 01/26/21 at 01:31; Status DC Acetaminophen/ Hydrocodone Bitart (Lortab 5/325) 1 tab 1X ONCE PO Last administered on 01/26/21at 04:54; Start 01/26/21 at 05:00; Stop 01/26/21 at 05:01; Status DC Clonazepam (KlonoPIN) 2 mg 1X PRN PRN PO ANXIETY / AGITATION Last administered on 01/26/21at 09:13; Start 01/26/21 at 06:15; Stop 01/26/21 at 10:00; Status DC Hydromorphone HCl (Dilaudid) 0.4 mg PRN Q4HRS PRN IVP MODERATE TO SEVERE PAIN Last administered on 01/28/21at 06:15; Start 01/26/21 at 10:00 Methylprednisolone Acetate (DEPO-Medrol 40MG VIAL) 40 mg 1X ONCE IM ; Start 01/26/21 at 15:00; Stop 01/26/21 at 15:01; Status DC Bupivacaine HCl (Sensorcaine-Mpf 0.25%) 10 ml 1X ONCE IJ ; Start 01/26/21 at 15:00; Stop 01/26/21 at 15:01; Status DC Acetaminophen/ Hydrocodone Bitart (Lortab 10/325) 1 tab PRN Q6HRS PRN PO MODERATE TO SEVERE PAIN Last administered on 01/28/21at 09:50; Start 01/26/21 at 14:30 Lidocaine (Lidoderm) 1 patch DAILY TD Last administered on 01/28/21at 08:40; Start 01/26/21 at 14:00 Miscellaneous (Lidoderm Patch Removal) 1 ea QHS MC Last administered on 01/27/21at 20:37; Start 01/26/21 at 21:00 Tizanidine HCl (Zanaflex) 4 mg PRN Q8HRS PRN PO MUSCLE SPASMS Last administered on 01/27/21at 20:29; Start 01/26/21 at 14:30 Methylprednisolone (Medrol) 8 mg BID PO Last administered on 01/26/21at 21:36; Start 01/26/21 at 15:00; Stop 01/26/21 at 21:01; Status DC Methylprednisolone (Medrol) 4 mg BID@1700,1900 PO ; Start 01/26/21 at 17:00; Stop 01/26/21 at 19:01; Status DC Methylprednisolone (Medrol) 4 mg TIDPC PO Last administered on 01/27/21at 17:35; Start 01/27/21 at 08:30; Stop 01/27/21 at 17:31; Status DC Methylprednisolone (Medrol) 8 mg QHS PO Last administered on 01/27/21at 20:35; Start 01/27/21 at 21:00; Stop 01/27/21 at 21:01; Status DC Methylprednisolone (Medrol) 4 mg QIDAFTMEAL PO Last administered on 01/28/21at 12:32; Start 01/28/21 at 09:00; Stop 01/28/21 at 21:01 Methylprednisolone (Medrol) 4 mg TID PO ; Start 01/29/21 at 09:00; Stop 01/29/21 at 21:01 Methylprednisolone (Medrol) 4 mg BID PO ; Start 01/30/21 at 09:00; Stop 01/30/21 at 21:01 Methylprednisolone (Medrol) 4 mg DAILY PO ; Start 01/31/21 at 09:00; Stop 01/31/21 at 09:01 Pantoprazole Sodium (Protonix) 40 mg DAILYAC PO Last administered on 01/26/21at 19:53; Start 01/26/21 at 16:30; Stop 01/26/21 at 21:02; Status DC Sodium Chloride (Normal Saline Flush) 3 ml QSHIFT PRN IV AFTER MEDS AND BLOOD DRAWS; Start 01/26/21 at 14:45 Sodium Chloride 1,000 ml @ 75 mls/hr [id number] IV Last administered on 01/28/21at 06:20; Start 01/26/21 at 14:45 Ondansetron HCl (Zofran) 4 mg PRN Q4HRS PRN IV NAUSEA/VOMITING; Start 01/26/21 at 14:45 Acetaminophen (Tylenol) 650 mg PRN Q4HRS PRN PO TEMP OVER 100.4F OR MILD PAIN Last administered on 01/27/21at 05:42; Start 01/26/21 at 14:45 Acetaminophen (Tylenol Supp) 650 mg PRN Q4HRS PRN PA TEMP OVER 100.4F OR MILD PAIN; Start 01/26/21 at 14:45 Al Hydroxide/Mg Hydroxide (Mylanta Plus Xs) 30 ml PRN DAILY PRN PO HEARTBURN / GAS; Start 01/26/21 at 14:45 Clonidine HCl (Catapres) 0.1 mg PRN Q6HRS PRN PO SBP>160 OR DBP>90; Start 01/26/21 at 14:45 Sodium Monofluorophosphate (Fleet Adult) 133 ml PRN DAILY PRN [place] CONSTIPATION; Start 01/26/21 at 14:45 Docusate Sodium (Colace) 100 mg PRN BID PRN PO HARD STOOLS; Start 01/26/21 at 14:45 Albuterol Sulfate (Ventolin Neb Soln) 2.5 mg PRN Q4HRS PRN NEB SHORTNESS OF BREATH; Start 01/26/21 at 14:45 Guaifenesin (Robitussin) 200 mg PRN Q4HRS PRN PO COUGH; Start 01/26/21 at 14:45 Lorazepam (Ativan) 0.5 mg PRN Q4HRS PRN PO ANXIETY / AGITATION,2nd CHOICE; Start 01/26/21 at 14:45 Hydromorphone HCl (Dilaudid) 0.5 mg PRN Q2HRS PRN IV SEVERE PAIN 7-10 Last administered on 01/28/21at 11:02; Start 01/26/21 at 14:45 Enoxaparin Sodium (Lovenox 40mg Syringe) 40 mg Q24H SQ Last administered on 01/27/21at 17:35; Start 01/26/21 at 16:00 Atorvastatin Calcium (Lipitor) 40 mg HS PO Last administered on 01/27/21at 20:29; Start 01/26/21 at 21:00 Duloxetine HCl (Cymbalta) 20 mg BID PO Last administered on 01/28/21at 08:38; S tart 01/26/21 at 21:00 Fluticasone Propionate (Flonase) 1 spray DAILY NS Last administered on 01/27/21 08:49; Start 01/27/21 at 09:00 Levothyroxine Sodium (Synthroid) 50 mcg DAILY07 PO Last administered on 01/28/21 06:14; Start 01/27/21 at 07:00 Lisinopril (Prinivil) 20 mg DAILY PO Last administered on 01/28/21 08:39; Start 01/27/21 at 09:00 Pregabalin (Lyrica) 75 mg BID PO Last administered on 01/28/21 08:39; Start 01/26/21 at 21:00 Sennosides (Senna) 17.2 mg BID PO Last administered on 01/28/21 08:38; Start 01/26/21 at 21:00 Sucralfate (Carafate) 1 gm BID PO Last administered on 01/28/21 08:37; Start 01/26/21 at 21:00 Tamsulosin HCl (Flomax) 0.4 mg DAILY PO Last administered on 01/28/21 08:38; Start 01/27/21 at 09:00 Zolpidem Tartrate (Ambien) 5 mg PRN QHS PRN PO INSOMNIA Last administered on 01/27/21 20:29; Start 01/26/21 at 20:45 Lactobacillus Rhamnosus (Culturelle) 1 cap DAILY PO Last administered on 01/28/21 08:38; Start 01/27/21 at 09:00 Calcium/Vitamin D (Oscal D 500mg/ 200uts) 1 tab BIDWMEALS PO Last administered on 01/28/21 08:38; Start 01/27/21 at 08:00 Clonazepam (KlonoPIN) 1 mg PRN TID PRN PO ANXIETY / AGITATION,1st CHOICE Last administered on 01/28/21 14:00; Start 01/26/21 at 21:00 Clonazepam (KlonoPIN) 2 mg HS PO Last administered on 01/27/21 20:30; Start 01/26/21 at 21:00 Docusate Sodium (Colace) 100 mg BID PO Last administered on 01/28/21 08:39; Start 01/26/21 at 21:00 Non-Formulary Medication (Lactobacillus Rhamnosus Gg (Culturelle)) 1 cap DAILY PO ; Start 01/27/21 at 09:00; Stop 01/26/21 at 20:58; Status DC Lurasidone HCl (Latuda) 60 mg DAILYWBKFT PO Last administered on 01/28/21at 08:38; Start 01/27/21 at 08:00 Multivitamins (Thera M Plus) 1 tab DAILY PO Last administered on 01/28/21at 08:38; Start 01/27/21 at 09:00 Non-Formulary Medication (Naloxegol Oxalate (Movantik)) 25 mg DAILY PO ; Start 01/27/21 at 09:00; Stop 01/27/21 at 16:13; Status DC Pantoprazole Sodium (Protonix) 40 mg DAILYAC PO Last administered on 01/28/21at 08:39; Start 01/27/21 at 07:30 Vitamin E (Vitamin E) 200 unit DAILY PO Last administered on 01/28/21at 08:37; Start 01/27/21 at 09:00 Non-Formulary Medication ([cranber] ) 450 mg DAILY PRN PO urinary; Start 01/26/21 at 20:45; Stop 01/26/21 at 20:57; Status DC Cyanocobalamin (Vitamin B-12) 500 mcg DAILY PO Last administered on 01/28/21at 08:37; Start 01/27/21 at 09:00 Vitamin D (Vitamin D3) 1,000 unit DAILY PO Last administered on 01/28/21at 08:37; Start 01/27/21 at 09:00 Fentanyl (Duragesic 50mcg/ Hr Patch) 1 patch Q72H TD Last administered on at 12:32; Start 01/28/21 at 12:00 Diclofenac Sodium (Voltaren) 1 catia DAILY TP Last administered on 01/28/21at 14:01; Start 01/28/21 at 12:00 Active Scripts Active Medrol (Methylprednisolone) 4 Mg Tab.ds.pk 1 Pkg PO UD 6 Days Reported Zolpidem Tartrate 5 Mg Tablet 10 Mg PO QHS PRN Vitamin E (Vitamin E Mixed) 400 Unit Tablet 200 Unit PO DAILY [vitamin D] 1,000 Intlu PO DAILY [vitamin] [vitamin b12] 500 Mcg PO DAILY Flomax (Tamsulosin Hcl) 0.4 Mg Cap.er.24h 0.4 Mg PO DAILY Sucralfate 1 Gm Tablet 1 Gm PO BID Senna Laxative (Sennosides) 8.6 Mg Tablet 2 Tab PO BID 30 Days Trang-Bid Caplet (Acidoph/L.bulg/Bif.b/S.thermop) 1 Each Tablet 1 Each PO DAILY Lyrica (Pregabalin) 75 Mg Capsule 75 Mg PO BID Omeprazole 20 Mg Capsule.dr 20 Mg PO DAILY One-Daily Multi-Vitamin (Multivitamin) 1 Each Tablet 1 Tab PO DAILY 30 Days Movantik (Naloxegol Oxalate) 25 Mg Tablet 25 Mg PO DAILY Lisinopril 20 Mg Tablet 1 Tab PO DAILY Levothyroxine Sodium 50 Mcg Tablet 1 Tab PO DAILY Latuda (Lurasidone Hcl) 60 Mg Tablet 60 Mg PO DAILY Culturelle (Lactobacillus Rhamnosus Gg) 1 Each Capsule 1 Cap PO DAILY 30 Days Cymbalta (Duloxetine Hcl) 20 Mg Capsule.dr 20 Mg PO BID Colace Clear (Docusate Sodium) 50 Mg Capsule 1 Cap PO BID 30 Days [cranber] 450 Mg PO DAILY PRN Fluticasone Propionate Nasal [place] (Fluticasone Propionate) 16 Gm [place].susp 1 [place] NS DAILY FENTANYL 50mcg/hr (Fentanyl) 1 Each Patch.td72 1 Patch TD Q72H Clonazepam 2 Mg Tablet 2 Mg PO HS Clonazepam 1 Mg Tablet 1 Mg PO TID Calcium 600 + Vit D3 Caplet (Calcium Carbonate/Vitamin D3) 1 Each Tablet 1 Tab PO BID 30 Days Atorvastatin Calcium 40 Mg Tablet 40 Mg PO HS Vitals/I & O Vital Sign - Last 24 Hours 01/27/21 01/27/21 01/27/21 01/27/21 15:32 18:47 21:43 22:15 Temp 97.8 97.8 Pulse 83 Resp 18 18 18 22 B/P (MAP) 187/96 (126) Pulse Ox 92 O2 Delivery Room Air Room Air Room Air 01/27/21 01/28/21 01/28/21 01/28/21 23:15 01:25 02:00 03:34 Temp 98.2 98.0 98.2 98.0 Pulse 61 62 Resp 18 24 16 18 B/P (MAP) 184/94 (124) 166/92 (116) Pulse Ox 92 94 O2 Delivery Room Air Room Air Room Air 01/28/21 01/28/21 01/28/21 01/28/21 03:40 04:10 06:15 07:00 Temp 98.2 98.2 Pulse 110 Resp 20 20 20 18 B/P (MAP) 167/117 (134) Pulse Ox 90 O2 Delivery Room Air Room Air Room Air Room Air 01/28/21 01/28/21 01/28/21 01/28/21 08:05 08:39 08:41 09:50 Pulse 110 B/P (MAP) 167/117 Pulse Ox 90 90 O2 Delivery Room Air Room Air Nasal Cannula 01/28/21 01/28/21 01/28/21 01/28/21 10:38 11:00 11:02 11:44 Temp 98.5 98.5 Pulse 95 Resp 18 B/P (MAP) 179/106 (130) Pulse Ox 90 94 90 90 O2 Delivery Room Air Room Air Room Air Room Air 01/28/21 12:32 Pulse Ox 90 O2 Delivery Room Air Intake and Output 01/27/21 01/27/21 01/28/21 15:00 23:00 07:00 Intake Total 976.3 ml 480 ml Balance 976.3 ml 480 ml Justifications for Admission Other Justification intractable lumbar radiculopathy FRANCISCO JAVIER GIORDANO MD Jan 28, 2021 15:05
[2021-01-28] MEDS: tiZANidine 4 MG TABLET. PO PRN (16:06)
[2021-01-28] MEDS: ENOXAPARIN 40 MG/0.4 ML SYRINGE. SQ SCH (16:06)
[2021-01-28 19:00] VITALS: BP 160/85
[2021-01-28] MEDS: ATORVASTATIN CALCIUM 40 MG TABLET. PO SCH (20:05)
[2021-01-28] MEDS: clonazePAM 0.5 MG TABLET PO SCH (20:06)
[2021-01-28] MEDS: HYDROmorphone 2 MG TABLET PO PRN (20:06)
[2021-01-28] MEDS: ZOLPIDEM 5 MG TABLET. PO PRN (20:07)
[2021-01-28] MEDS: PATCH REMOVAL. MC SCH (21:00)
[2021-01-28 22:54] VITALS: BP 195/112
[2021-01-28] MEDS ORDERED: hydrALAZINE 20 MG/ML VIAL. IVP PRN (23:15)
[2021-01-29] VITALS (7 sets, daily range): BP systolic 124–205; BP diastolic 72–99
[2021-01-29] MEDS: tiZANidine 4 MG TABLET. PO PRN (01:50)
[2021-01-29] MEDS: HYDROmorphone 2 MG TABLET PO PRN ×4 (01:51→21:02)
[2021-01-29] MEDS: cloNIDine HCL 0.1 MG TABLET PO PRN ×2 (01:55→08:33)
[2021-01-29] MEDS: LEVOTHYROXINE 50 MCG TABLET PO SCH (05:20)
[2021-01-29] MEDS: PANTOPRAZOLE 40 MG TABLET.DR. PO SCH (05:20)
[2021-01-29] MEDS: HYDROcodone/APAP 10/325 1 TAB TABLET PO PRN ×3 (05:20→18:41)
[2021-01-29] MEDS: clonazePAM 0.5 MG TABLET PO PRN ×3 (06:47→16:28)
[2021-01-29] MEDS: CYANOCOBALAMIN (VITAMIN B-12) 1,000 MCG TABLET. PO SCH (08:34)
[2021-01-29] MEDS: SUCRALFATE 1 GM TABLET. PO SCH ×2 (08:34→21:01)
[2021-01-29] MEDS: CHOLECALCIFEROL (VITAMIN D3) 1,000 UNIT TABLET PO SCH (08:34)
[2021-01-29] MEDS: SENNOSIDES 8.6 MG TABLET PO SCH ×2 (08:34→20:49)
[2021-01-29] MEDS: VITAMIN E 200 UNIT CAPSULE. PO SCH (08:34)
[2021-01-29] MEDS: CALCIUM CARB/VIT D3 500/200 TABLET. PO SCH ×2 (08:34→16:33)
[2021-01-29] MEDS: LURASIDONE 40 MG TABLET. PO SCH (08:35)
[2021-01-29] MEDS: LACTOBACILLUS RHAMNOSUS GG 1 CAPSULE. PO SCH (08:35)
[2021-01-29] MEDS: LISINOPRIL 20 MG TABLET PO SCH (08:35)
[2021-01-29] MEDS: PREGABALIN 75 MG CAPSULE PO SCH ×2 (08:35→20:49)
[2021-01-29] MEDS: methylPREDNISolone 4 MG TABLET. PO SCH ×3 (08:35→20:49)
[2021-01-29] MEDS: TAMSULOSIN 0.4 MG CAP.ER.24H. PO SCH (08:36)
[2021-01-29] MEDS: FLUTICASONE 50MCG/NASAL SPRAY 16GM BOTTLE. NS SCH (08:36)
[2021-01-29] MEDS: DULoxetine HCL 20 MG CAPSULE.DR PO SCH ×2 (08:36→20:50)
[2021-01-29] MEDS: DOCUSATE SODIUM 100 MG CAPSULE. PO SCH ×2 (08:36→20:49)
[2021-01-29] MEDS: MULTIVITAMIN with MINERAL TABLET. PO SCH (08:36)
[2021-01-29] MEDS: LIDOCAINE (700MG/PATCH) PATCH. TD SCH (08:37)
--- NOTE | 2021-01-29 09:05 | PDOC ---
PROGRESS NOTES Date of Service DATE: 01/29/21 TIME: 09:04 Subjective Subjective No new complaints. Objective Objective Vital Signs Date Time Temp Pulse Resp B/P (MAP) Pulse Ox O2 Delivery O2 Flow Rate FiO2 01/29/21 08:35 71 176/99 01/29/21 08:33 95 Room Air 01/29/21 07:00 98.2 17 98.2 01/28/21 23:28 1.0 Intake and Output 01/29/21 07:00 Intake Total 900 ml Output Total 1100 ml Balance -200 ml Intake Oral 900 ml Output Urine Total 1100 ml # Voids 4 Physical Exam Physical Exam She is alert,supine in bed and she continues to require maximal assistance with mobility and self care. She is constipated. She agrees to go to SNF. Assessment Assessment Problems Medical Problems: (1) Acute left-sided low back pain with sciatica Status: Acute (2) Intractable low back pain Status: Acute (3) Unable to ambulate Status: Acute Plan Plan of Care To SNF when medically stable. Comment Review of Relevant I have reviewed the following items luis (where applicable) has been applied. Labs Microbiology 01/26/21 Urine Culture - Final, Complete 01/26/21 Antimicrobic Susceptibility - Final, Complete Medications Current Medications Dexamethasone Sodium Phosphate (Decadron) 10 mg 1X ONCE IM Last administered on 01/25/21at 22:25; Start 01/25/21 at 22:30; Stop 01/25/21 at 22:31; Status DC Orphenadrine Citrate (Norflex) 60 mg 1X ONCE IM Last administered on 01/25/21at 22:23; Start 01/25/21 at 22:30; Stop 01/25/21 at 22:31; Status DC Clonidine HCl (Catapres) 0.1 mg 1X ONCE PO Last administered on 01/25/21at 23:05; Start 01/25/21 at 23:00; Stop 01/25/21 at 23:01; Status DC Acetaminophen/ Hydrocodone Bitart (Lortab 5/325) 1 tab 1X ONCE PO Last administered on 01/26/21at 01:26; Start 01/26/21 at 01:30; Stop 01/26/21 at 01: 31; Status DC Clonazepam (KlonoPIN) 2 mg 1X ONCE PO Last administered on 01/26/21at 01:29; Start 01/26/21 at 01:30; Stop 01/26/21 at 01:31; Status DC Acetaminophen/ Hydrocodone Bitart (Lortab 5/325) 1 tab 1X ONCE PO Last administered on 01/26/21at 04:54; Start 01/26/21 at 05:00; Stop 01/26/21 at 05:01; Status DC Clonazepam (KlonoPIN) 2 mg 1X PRN PRN PO ANXIETY / AGITATION Last administered on 01/26/21at 09:13; Start 01/26/21 at 06:15; Stop 01/26/21 at 10:00; Status DC Hydromorphone HCl (Dilaudid) 0.4 mg PRN Q4HRS PRN IVP MODERATE TO SEVERE PAIN Last administered on 01/28/21at 06:15; Start 01/26/21 at 10:00; Stop 01/28/21 at 15:23; Status DC Methylprednisolone Acetate (DEPO-Medrol 40MG VIAL) 40 mg 1X ONCE IM ; Start 01/26/21 at 15:00; Stop 01/26/21 at 15:01; Status DC Bupivacaine HCl (Sensorcaine-Mpf 0.25%) 10 ml 1X ONCE IJ ; Start 01/26/21 at 15:00; Stop 01/26/21 at 15:01; Status DC Acetaminophen/ Hydrocodone Bitart (Lortab 10/325) 1 tab PRN Q6HRS PRN PO MODERATE TO SEVERE PAIN Last administered on 01/29/21at 05:20; Start 01/26/21 at 14:30 Lidocaine (Lidoderm) 1 patch DAILY TD Last administered on 01/28/21at 08:40; Start 01/26/21 at 14:00 Miscellaneous (Lidoderm Patch Removal) 1 ea QHS MC Last administered on 01/28/21at 21:00; Start 01/26/21 at 21:00 Tizanidine HCl (Zanaflex) 4 mg PRN Q8HRS PRN PO MUSCLE SPASMS Last administered on 01/29/21at 01:50; Start 01/26/21 at 14:30 Methylprednisolone (Medrol) 8 mg BID PO Last administered on 01/26/21at 21:36; Start 01/26/21 at 15:00; Stop 01/26/21 at 21:01; Status DC Methylprednisolone (Medrol) 4 mg BID@1700,1900 PO ; Start 01/26/21 at 17:00; Stop 01/26/21 at 19:01; Status DC Methylprednisolone (Medrol) 4 mg TIDPC PO Last administered on 01/27/21at 17:35; Start 01/27/21 at 08:30; Stop 01/27/21 at 17:31; Status DC Methylprednisolone (Medrol) 8 mg QHS PO Last administered on 01/27/21at 20:35; Start 01/27/21 at 21:00; Stop 01/27/21 at 21:01; Status DC Methylprednisolone (Medrol) 4 mg QIDAFTMEAL PO Last administered on 01/28/21at 20:05; Start 01/28/21 at 09:00; Stop 01/28/21 at 21:01; Status DC Methylprednisolone (Medrol) 4 mg TID PO Last administered on 01/29/21at 08:35; Start 01/29/21 at 09:00; Stop 01/29/21 at 21:01 Methylprednisolone (Medrol) 4 mg BID PO ; Start 01/30/21 at 09:00; Stop 01/30/21 at 21:01 Methylprednisolone (Medrol) 4 mg DAILY PO ; Start 01/31/21 at 09:00; Stop 01/31/21 at 09:01 Pantoprazole Sodium (Protonix) 40 mg DAILYAC PO Last administered on 01/26/21at 19:53; Start 01/26/21 at 16:30; Stop 01/26/21 at 21:02; Status DC Sodium Chloride (Normal Saline Flush) 3 ml QSHIFT PRN IV AFTER MEDS AND BLOOD DRAWS; Start 01/26/21 at 14:45 Sodium Chloride 1,000 ml @ 75 mls/hr [id number] IV Last administered on 01/28/21at 06:20; Start 01/26/21 at 14:45; Stop 01/28/21 at 16:25; Status DC Ondansetron HCl (Zofran) 4 mg PRN Q4HRS PRN IV NAUSEA/VOMITING; Start 01/26/21 at 14:45 Acetaminophen (Tylenol) 650 mg PRN Q4HRS PRN PO TEMP OVER 100.4F OR MILD PAIN Last administered on 01/27/21at 05:42; Start 01/26/21 at 14:45 Acetaminophen (Tylenol Supp) 650 mg PRN Q4HRS PRN SC TEMP OVER 100.4F OR MILD PAIN; Start 01/26/21 at 14:45 Al Hydroxide/Mg Hydroxide (Mylanta Plus Xs) 30 ml PRN DAILY PRN PO HEARTBURN / GAS; Start 01/26/21 at 14:45 Clonidine HCl (Catapres) 0.1 mg PRN Q6HRS PRN PO SBP>160 OR DBP>90 Last administered on 01/29/21at 08:33; Start 01/26/21 at 14:45 Sodium Monofluorophosphate (Fleet Adult) 133 ml PRN DAILY PRN [place] CONSTIPATION; Start 01/26/21 at 14:45 Docusate Sodium (Colace) 100 mg PRN BID PRN PO HARD STOOLS; Start 01/26/21 at 14:45 Albuterol Sulfate (Ventolin Neb Soln) 2.5 mg PRN Q4HRS PRN NEB SHORTNESS OF BREATH; Start 01/26/21 at 14:45 Guaifenesin (Robitussin) 200 mg PRN Q4HRS PRN PO COUGH; Start 01/26/21 at 14:45 Lorazepam (Ativan) 0.5 mg PRN Q4HRS PRN PO ANXIETY / AGITATION,2nd CHOICE; Start 01/26/21 at 14:45 Hydromorphone HCl (Dilaudid) 0.5 mg PRN Q2HRS PRN IV SEVERE PAIN 7-10 Last administered on 01/28/21at 15:14; Start 01/26/21 at 14:45; Stop 01/28/21 at 15:23; Status DC Enoxaparin Sodium (Lovenox 40mg Syringe) 40 mg Q24H SQ Last administered on 01/28/21at 16:06; Start 01/26/21 at 16:00 Atorvastatin Calcium (Lipitor) 40 mg HS PO Last administered on 01/28/21at 20:05; Start 01/26/21 at 21:00 Duloxetine HCl (Cymbalta) 20 mg BID PO Last administered on 01/29/21at 08:36; Start 01/26/21 at 21:00 Fluticasone Propionate (Flonase) 1 spray DAILY NS Last administered on 01/27/21at 08:49; Start 01/27/21 at 09:00 Levothyroxine Sodium (Synthroid) 50 mcg DAILY07 PO Last administered on 01/29/21at 05:20; Start 01/27/21 at 07:00 Lisinopril (Prinivil) 20 mg DAILY PO Last administered on 01/29/21at 08:35; Start 01/27/21 at 09:00 Pregabalin (Lyrica) 75 mg BID PO Last administered on 01/29/21 08:35; Start 01/26/21 at 21:00 Sennosides (Senna) 17.2 mg BID PO Last administered on 01/29/21 08:34; Start 01/26/21 at 21:00 Sucralfate (Carafate) 1 gm BID PO Last administered on 01/29/21 08:34; Start 01/26/21 at 21:00 Tamsulosin HCl (Flomax) 0.4 mg DAILY PO Last administered on 01/29/21 08:36; Start 01/27/21 at 09:00 Zolpidem Tartrate (Ambien) 5 mg PRN QHS PRN PO INSOMNIA Last administered on 01/28/21 20:07; Start 01/26/21 at 20:45 Lactobacillus Rhamnosus (Culturelle) 1 cap DAILY PO Last administered on 01/29/21 08:35; Start 01/27/21 at 09:00 Calcium/Vitamin D (Oscal D 500mg/ 200uts) 1 tab BIDWMEALS PO Last administered on 01/29/21 08:34; Start 01/27/21 at 08:00 Clonazepam (KlonoPIN) 1 mg PRN TID PRN PO ANXIETY / AGITATION,1st CHOICE Last administered on 01/29/21at 06:47; Start 01/26/21 at 21:00 Clonazepam (KlonoPIN) 2 mg HS PO Last administered on 01/28/21 20:06; Start 01/26/21 at 21:00 Docusate Sodium (Colace) 100 mg BID PO Last administered on 01/29/21 08:36; Start 01/26/21 at 21:00 Non-Formulary Medication (Lactobacillus Rhamnosus Gg (Culturelle)) 1 cap DAILY PO ; Start 01/27/21 at 09:00; Stop 01/26/21 at 20:58; Status DC Lurasidone HCl (Latuda) 60 mg DAILYWBKFT PO Last administered on 01/29/21at 08:35; Start 01/27/21 at 08:00 Multivitamins (Thera M Plus) 1 tab DAILY PO Last administered on 01/29/21at 08:36; Start 01/27/21 at 09:00 Non-Formulary Medication (Naloxegol Oxalate (Movantik)) 25 mg DAILY PO ; Start 01/27/21 at 09:00; Stop 01/27/21 at 16:13; Status DC Pantoprazole Sodium (Protonix) 40 mg DAILYAC PO Last administered on 01/29/21at 05:20; Start 01/27/21 at 07:30 Vitamin E (Vitamin E) 200 unit DAILY PO Last administered on 01/29/21at 08:34; Start 01/27/21 at 09:00 Non-Formulary Medication ([cranber] ) 450 mg DAILY PRN PO urinary; Start 01/26/21 at 20:45; Stop 01/26/21 at 20:57; Status DC Cyanocobalamin (Vitamin B-12) 500 mcg DAILY PO Last administered on 01/29/21at 08:34; Start 01/27/21 at 09:00 Vitamin D (Vitamin D3) 1,000 unit DAILY PO Last administered on 01/29/21at 08:3 4; Start 01/27/21 at 09:00 Fentanyl (Duragesic 50mcg/ Hr Patch) 1 patch Q72H TD Last administered on 01/28/21at 12:32; Start 01/28/21 at 12:00 Diclofenac Sodium (Voltaren) 1 catia DAILY TP Last administered on 01/28/21at 14:01; Start 01/28/21 at 12:00 Hydromorphone HCl (Dilaudid) 1 mg PRN Q4HRS PRN PO MODERATE TO SEVERE PAIN Last administered on 01/29/21at 08:33; Start 01/28/21 at 15:30 Hydralazine HCl (Apresoline Inj) 10 mg PRN Q4HRS PRN IVP ELEVATED BP, SEE COMMENTS Last administered on 01/28/21at 23:17; Start 01/28/21 at 23:15 Active Scripts Active Medrol (Methylprednisolone) 4 Mg Tab.ds.pk 1 Pkg PO UD 6 Days Reported Zolpidem Tartrate 5 Mg Tablet 10 Mg PO QHS PRN Vitamin E (Vitamin E Mixed) 400 Unit Tablet 200 Unit PO DAILY [vitamin D] 1,000 Intlu PO DAILY [vitamin] [vitamin b12] 500 Mcg PO DAILY Flomax (Tamsulosin Hcl) 0.4 Mg Cap.er.24h 0.4 Mg PO DAILY Sucralfate 1 Gm Tablet 1 Gm PO BID Senna Laxative (Sennosides) 8.6 Mg Tablet 2 Tab PO BID 30 Days Trang-Bid Caplet (Acidoph/L.bulg/Bif.b/S.thermop) 1 Each Tablet 1 Each PO DAILY Lyrica (Pregabalin) 75 Mg Capsule 75 Mg PO BID Omeprazole 20 Mg Capsule.dr 20 Mg PO DAILY One-Daily Multi-Vitamin (Multivitamin) 1 Each Tablet 1 Tab PO DAILY 30 Days Movantik (Naloxegol Oxalate) 25 Mg Tablet 25 Mg PO DAILY Lisinopril 20 Mg Tablet 1 Tab PO DAILY Levothyroxine Sodium 50 Mcg Tablet 1 Tab PO DAILY Latuda (Lurasidone Hcl) 60 Mg Tablet 60 Mg PO DAILY Culturelle (Lactobacillus Rhamnosus Gg) 1 Each Capsule 1 Cap PO DAILY 30 Days Cymbalta (Duloxetine Hcl) 20 Mg Capsule.dr 20 Mg PO BID Colace Clear (Docusate Sodium) 50 Mg Capsule 1 Cap PO BID 30 Days [cranber] 450 Mg PO DAILY PRN Fluticasone Propionate Nasal [place] (Fluticasone Propionate) 16 Gm [place].susp 1 [place] NS DAILY FENTANYL 50mcg/hr (Fentanyl) 1 Each Patch.td72 1 Patch TD Q72H Clonazepam 2 Mg Tablet 2 Mg PO HS Clonazepam 1 Mg Tablet 1 Mg PO TID Calcium 600 + Vit D3 Caplet (Calcium Carbonate/Vitamin D3) 1 Each Tablet 1 Tab PO BID 30 Days Atorvastatin Calcium 40 Mg Tablet 40 Mg PO HS Vitals/I & O Vital Sign - Last 24 Hours 01/28/21 01/28/21 01/28/21 01/28/21 09:50 10:38 11:00 11:02 Temp 98.5 98.5 Pulse 95 Resp 18 B/P (MAP) 179/106 (130) Pulse Ox 90 90 94 90 O2 Delivery Nasal Cannula Room Air Room Air Room Air 801/28/21 01/28/21 01/28/21 11:44 12:32 15:00 15:14 Temp 98.2 98.2 Pulse 80 Resp 18 B/P (MAP) 174/89 (117) Pulse Ox 90 90 92 90 O2 Delivery Room Air Room Air Room Air Room Air 01/28/21 01/28/21 01/28/21 01/28/21 16:06 17:06 17:07 19:00 Temp 98.1 98.1 Pulse 78 Resp 18 B/P (MAP) 160/85 (110) Pulse Ox 90 93 O2 Delivery Room Air Room Air Room Air Room Air 01/28/21 01/28/21 01/28/21 01/28/21 20:00 20:06 20:36 22:47 Resp 16 15 17 Pulse Ox 93 93 O2 Delivery Nasal Cannula Room Air Nasal Cannula Nasal Cannula O2 Flow Rate 1.0 1.0 1.0 01/28/21 01/28/21 01/28/21 01/29/21 22:54 23:17 23:28 01:51 Temp 98.5 98.5 Pulse 67 67 Resp 18 15 14 B/P (MAP) 195/112 (139) 190/100 Pulse Ox 95 95 O2 Delivery Room Air Nasal Cannula Room Air O2 Flow Rate 1.0 01/29/21 01/29/21 01/29/21 01/29/21 01:55 02:18 02:24 03:00 Temp 98.3 98.3 Pulse 66 74 Resp 18 16 B/P (MAP) 205/96 205/95 (131) 176/82 (113) Pulse Ox 97 O2 Delivery Room Air Room Air 01/29/21 01/29/21 01/29/21 01/29/21 05:20 06:00 07:00 08:33 Temp 98.2 98.2 Pulse 71 71 Resp 15 16 17 B/P (MAP) 176/99 (124) 176/99 Pulse Ox 95 O2 Delivery Room Air Room Air Room Air 01/29/21 01/29/21 08:33 08:35 Pulse 71 B/P (MAP) 176/99 Pulse Ox 95 O2 Delivery Room Air Intake and Output 01/28/21 01/28/21 01/29/21 15:00 23:00 07:00 Intake Total 900 ml Output Total 200 ml 900 ml Balance 700 ml -900 ml Justifications for Admission Other Justification intractable lumbar radiculopathy FRANCISCO JAVIER GIORDANO MD Jan 29, 2021 09:05
[2021-01-29] MEDS: BISACODYL 5 MG TABLET.DR. PO SCH (09:15)
[2021-01-29] MEDS ORDERED: BISACODYL 10 MG SUPP.RECT. PR PRN (09:15)
--- NOTE | 2021-01-29 12:10 | NUR ---
SW following. Discussed with RN, pt now agreeable to SNF. Therapy recommending SNF. SW met with pt, she wants to double check with her daughter on facility due to being new to the area. SW awaiting response. Pt considering [facility] in [facility]. SW will continue to follow.
[2021-01-29] MEDS: MAGNESIUM CITRATE 296 ML SOLUTION. PO PRN (12:18)
--- NOTE | 2021-01-29 13:17 | PDOC ---
[employer] PROGRESS NOTE Date of Service DOS: DATE: 01/29/21 TIME: 13:13 Chief Complaint Chief Complaint Acute severe lumbar radiculopathy, with intractable pain probable severe spinal canal stenosis at least at L4-L5. There is a large disc herniation at T12-L1 likely contributing to marked severe spinal canal and left lateral recess stenosis Morbid obesity Plan: IV PAIN CONTROL Neurosurgery consult iv pain control PT/OT Consider MRI L/S Consult dr rogers [place] nadja dvt prophylaxis History of Present Illness History of Present Illness 60 year old female who presented emergency department via EMS with complaints of pain in her left leg that radiates from her low back to her knee. she has been moving residences recently and has been doing a lot of bending./ 6 or 7 days ago she felt like she pulled a muscle. denies any numbness, tingling, or weakness of her lower left extremity. CT C/W probable severe spinal canal stenosis at least at L4-L5. There is a large disc herniation at T12-L1 likely contributing to marked severe spinal canal and left lateral recess stenosis admitted with Acute severe lumbar radiculopathy, with intractable pain // wearing a fentanyl pain patch with no benefit./ pain is worse with movement. 01/27/2021: Patient still with complaints of hip pain. Received left sacroiliac joint injection with some improvement. Await MRI results. She does have a prosthetic limb and admits to no longer working with physical therapy once COVID-19 hit. Over the past 2 years she has been mostly mobile with aid of a wheelchair. Discussed potential for physical therapy regardless of MRI results. Patient states that she does not want to discharge to correction, and would feel more comfortable discharging home with home health and her wheelchair. Await PT/OT recommendations barring MRI results. 01/28/2021: An MRI yesterday that showed moderate thoracolumbar spondylosis and severe neural foraminal narrowing at L3-4 on left. States her pain is improved. Will defer to neurosurgery in this regard. She does report regular fentanyl patch use 50 mcg to her lower back that she changes every 3 days over the past couple years. She is followed with pain management doctor. Regardless in her decision about surgical intervention or not, she is still refusing SNU; she prefers eventually to discharge home with home health services and outpatient PT. Currently on Medrol taper. Will obtain hemoglobin A1c. 01/29/2021: Feels okay, pain controlled. Per Dr. Pruitt, she may benefit from lumbar epidural steroid injections and SNU. I discussion with patient yesterday afternoon after my initial visit and this morning; she is agreeable to SNU. She has a pain management doctor that she has been in touch with on the phone while inpatient. Informed patient and social and human services assistant that as to not violate any pain management will provide information for patient to update her pain management doctor about the pharmacies used at whichever correction facility she may be accepted to. Vitals/I&O Vitals/I&O: Vital Signs Date Time Temp Pulse Resp B/P (MAP) Pulse Ox O2 Delivery O2 Flow Rate FiO2 01/29/21 12:22 95 Room Air 01/29/21 11:00 98.0 66 17 128/86 (100) 98.0 01/28/21 23:28 1.0 I & O 01/28/21 01/28/21 01/29/21 15:00 23:00 07:00 Intake Total 900 ml Output Total 200 ml 900 ml Balance 700 ml -900 ml Physical Exam General: Alert, Oriented X3, Cooperative, No acute distress Heart: Regular rate Lungs: Clear Abdomen: Normal bowel sounds, Soft Extremities: No cyanosis Skin: No significant lesion Assessment and Plan Assessmemt and Plan Problems Medical Problems: (1) Acute left-sided low back pain with sciatica Status: Acute (2) Intractable low back pain Status: Acute (3) Unable to ambulate Status: Acute Comment Review of Relevant I have reviewed the following items luis (where applicable) has been applied. Medications: Current Medications Medications (Trade) Dose Ordered Sig/Bennie Route PRN Reason Start Time Stop Time Status Last Admin Dose Admin Methylprednisolone (Medrol) 4 mg TID PO 01/29/21 09:00 01/29/21 21:01 01/29/21 08:35 Hydromorphone HCl (Dilaudid) 1 mg PRN Q4HRS PRN PO MODERATE TO SEVERE PAIN 01/28/21 15:30 01/29/21 08:33 Hydralazine HCl (Apresoline Inj) 10 mg PRN Q4HRS PRN IVP ELEVATED BP, SEE COMMENTS 01/28/21 23:15 01/28/21 23:17 Magnesium Citrate (Citroma) 296 ml PRN 1X PRN PO CONSTIPATION 01/29/21 09:15 01/29/21 12:18 Bisacodyl (Dulcolax Supp) 10 mg PRN DAILY PRN [place] CONSTIPATION 01/29/21 09:15 01/29/21 12:19 Justifications for Admission Other Justification intractable lumbar radiculopathy ASAEL AVLAREZ MD Jan 29, 2021 13:17
[2021-01-29 15:29] LABS: CALCIUM 9.7 mg/dL (8.5-10.1); CREATININE 0.9 mg/dL (0.6-1.0); GFR 63.4; POTASSIUM 3.7 mmol/L (3.5-5.1)
[2021-01-29] MEDS: ENOXAPARIN 40 MG/0.4 ML SYRINGE. SQ SCH (16:29)
[2021-01-29] MEDS: clonazePAM 0.5 MG TABLET PO SCH (20:50)
[2021-01-29] MEDS: ATORVASTATIN CALCIUM 40 MG TABLET. PO SCH (21:01)
[2021-01-29] MEDS: PATCH REMOVAL. MC SCH (21:08)
[2021-01-29] MEDS: ZOLPIDEM 5 MG TABLET. PO PRN (21:08)
[2021-01-30] MEDS: HYDROcodone/APAP 10/325 1 TAB TABLET PO PRN ×3 (01:12→20:33)
[2021-01-30 02:12] LABS: HEMOGLOBIN A1C 5.6 % (4.8-5.6)
[2021-01-30 02:57] VITALS: BP 138/88
[2021-01-30] MEDS: HYDROmorphone 2 MG TABLET PO PRN ×4 (02:59→20:32)
[2021-01-30] MEDS: tiZANidine 4 MG TABLET. PO PRN (06:07)
[2021-01-30] MEDS: PANTOPRAZOLE 40 MG TABLET.DR. PO SCH (06:07)
[2021-01-30] MEDS: LEVOTHYROXINE 50 MCG TABLET PO SCH (06:07)
[2021-01-30 07:00] VITALS: BP 162/79
[2021-01-30] MEDS: BISACODYL 5 MG TABLET.DR. PO SCH (07:47)
[2021-01-30] MEDS: SENNOSIDES 8.6 MG TABLET PO SCH ×2 (07:48→20:33)
[2021-01-30] MEDS: TAMSULOSIN 0.4 MG CAP.ER.24H. PO SCH (08:36)
[2021-01-30] MEDS: DOCUSATE SODIUM 100 MG CAPSULE. PO SCH ×2 (08:36→20:32)
[2021-01-30] MEDS: PREGABALIN 75 MG CAPSULE PO SCH ×2 (08:37→20:33)
[2021-01-30] MEDS: LISINOPRIL 20 MG TABLET PO SCH (08:37)
[2021-01-30] MEDS: VITAMIN E 200 UNIT CAPSULE. PO SCH (08:38)
[2021-01-30] MEDS: DULoxetine HCL 20 MG CAPSULE.DR PO SCH ×2 (08:38→20:32)
[2021-01-30] MEDS: methylPREDNISolone 4 MG TABLET. PO SCH ×2 (08:38→20:31)
[2021-01-30] MEDS: SUCRALFATE 1 GM TABLET. PO SCH ×2 (08:38→20:32)
[2021-01-30] MEDS: CALCIUM CARB/VIT D3 500/200 TABLET. PO SCH ×2 (08:38→17:17)
[2021-01-30] MEDS: LACTOBACILLUS RHAMNOSUS GG 1 CAPSULE. PO SCH (08:38)
[2021-01-30] MEDS: MULTIVITAMIN with MINERAL TABLET. PO SCH (08:38)
[2021-01-30] MEDS: LURASIDONE 40 MG TABLET. PO SCH (08:39)
[2021-01-30] MEDS: CYANOCOBALAMIN (VITAMIN B-12) 1,000 MCG TABLET. PO SCH (08:39)
[2021-01-30] MEDS: CHOLECALCIFEROL (VITAMIN D3) 1,000 UNIT TABLET PO SCH (08:39)
[2021-01-30] MEDS: LIDOCAINE (700MG/PATCH) PATCH. TD SCH (08:41)
[2021-01-30] MEDS: FLUTICASONE 50MCG/NASAL SPRAY 16GM BOTTLE. NS SCH (08:44)
[2021-01-30] MEDS: DICLOFENAC SODIUM 1% TOPICAL GEL 100GM TUBE. TP SCH (08:44)
--- NOTE | 2021-01-30 08:51 | PDOC ---
PROGRESS NOTES Date of Service DATE: 01/30/21 TIME: 08:49 Subjective Subjective No new complaints. Objective Objective Vital Signs Date Time Temp Pulse Resp B/P (MAP) Pulse Ox O2 Delivery O2 Flow Rate FiO2 01/30/21 08:37 62 138/88 01/30/21 07:00 97.9 17 91 Room Air 97.9 01/28/21 23:28 1.0 Intake and Output 01/30/21 07:00 Intake Total 340 ml Output Total 250 ml Balance 90 ml Intake Oral 340 ml Output Urine Total 250 ml # Voids 1 # Bowel Movements 1 Physical Exam Physical Exam She is alert,supine in bed and she continues to require moderate assistance for transfers with physical therapy and he constipation is relieved. Assessment Assessment Problems Medical Problems: (1) Acute left-sided low back pain with sciatica Status: Acute (2) Intractable low back pain Status: Acute (3) Unable to ambulate Status: Acute Plan Plan of Care To SNF when arrangements are completed. Comment Review of Relevant I have reviewed the following items luis (where applicable) has been applied. Labs Laboratory Tests Test 01/29/21 13:40 01/29/21 14:13 SARS-CoV-2 Antigen (Rapid) Negative (NEGATIVE) Sodium Level 133 mmol/L (136-145) Potassium Level 3.7 mmol/L (3.5-5.1) Chloride Level 102 mmol/L (98-107) Carbon Dioxide Level 20 mmol/L (21-32) Anion Gap 11 (6-14) Blood Urea Nitrogen 14 mg/dL (7-20) Creatinine 0.9 mg/dL (0.6-1.0) Estimated GFR (Cockcroft-Gault) 63.4 Glucose Level 110 mg/dL (70-99) Hemoglobin A1c 5.6 % (4.8-5.6) Calcium Level 9.7 mg/dL (8.5-10.1) Laboratory Tests Test 01/29/21 13:40 01/29/21 14:13 SARS-CoV-2 Antigen (Rapid) Negative (NEGATIVE) Sodium Level 133 mmol/L (136-145) Potassium Level 3.7 mmol/L (3.5-5.1) Chloride Level 102 mmol/L (98-107) Carbon Dioxide Level 20 mmol/L (21-32) Anion Gap 11 (6-14) Blood Urea Nitrogen 14 mg/dL (7-20) Creatinine 0.9 mg/dL (0.6-1.0) Estimated GFR (Cockcroft-Gault) 63.4 Glucose Level 110 mg/dL (70-99) Hemoglobin A1c 5.6 % (4.8-5.6) Calcium Level 9.7 mg/dL (8.5-10.1) Microbiology 01/26/21 Urine Culture - Final, Complete 01/26/21 Antimicrobic Susceptibility - Final, Complete Medications Current Medications Dexamethasone Sodium Phosphate (Decadron) 10 mg 1X ONCE IM Last administered on 01/25/21at 22:25; Start 01/25/21 at 22:30; Stop 01/25/21 at 22:31; Status DC Orphenadrine Citrate (Norflex) 60 mg 1X ONCE IM Last administered on 01/25/21at 22:23; Start 01/25/21 at 22:30; Stop 01/25/21 at 22:31; Status DC Clonidine HCl (Catapres) 0.1 mg 1X ONCE PO Last administered on 01/25/21at 23:05; Start 01/25/21 at 23:00; Stop 01/25/21 at 23:01; Status DC Acetaminophen/ Hydrocodone Bitart (Lortab 5/325) 1 tab 1X ONCE PO Last administered on 01/26/21at 01:26; Start 01/26/21 at 01:30; Stop 01/26/21 at 01:31; Status DC Clonazepam (KlonoPIN) 2 mg 1X ONCE PO Last administered on 01/26/21at 01:29; Start 01/26/21 at 01:30; Stop 01/26/21 at 01:31; Status DC Acetaminophen/ Hydrocodone Bitart (Lortab 5/325) 1 tab 1X ONCE PO Last administered on 01/26/21at 04:54; Start 01/26/21 at 05:00; Stop 01/26/21 at 05:01; Status DC Clonazepam (KlonoPIN) 2 mg 1X PRN PRN PO ANXIETY / AGITATION Last administered on 01/26/21at 09:13; Start 01/26/21 at 06:15; Stop 01/26/21 at 10:00; Status DC Hydromorphone HCl (Dilaudid) 0.4 mg PRN Q4HRS PRN IVP MODERATE TO SEVERE PAIN Last administered on 01/28/21at 06:15; Start 01/26/21 at 10:00; Stop 01/28/21 at 15:23; Status DC Methylprednisolone Acetate (DEPO-Medrol 40MG VIAL) 40 mg 1X ONCE IM ; Start 01/26/21 at 15:00; Stop 01/26/21 at 15:01; Status DC Bupivacaine HCl (Sensorcaine-Mpf 0.25%) 10 ml 1X ONCE IJ ; Start 01/26/21 at 15:00; Stop 01/26/21 at 15:01; Status DC Acetaminophen/ Hydrocodone Bitart (Lortab 10/325) 1 tab PRN Q6HRS PRN PO MOD TO SEVERE PAIN, 1ST CHOICE Last administered on 01/30/21at 08:38; Start 01/26/21 at 14:30 Lidocaine (Lidoderm) 1 patch DAILY TD Last administered on 01/30/21at 08:41; Start 01/26/21 at 14:00 Miscellaneous (Lidoderm Patch Removal) 1 ea QHS MC Last administered on 01/28/21at 21:00; Start 01/26/21 at 21:00 Tizanidine HCl (Zanaflex) 4 mg PRN Q8HRS PRN PO MUSCLE SPASMS Last administered on 01/30/21at 06:07; Start 01/26/21 at 14:30 Methylprednisolone (Medrol) 8 mg BID PO Last administered on 01/26/21at 21:36; Start 01/26/21 at 15:00; Stop 01/26/21 at 21:01; Status DC Methylprednisolone (Medrol) 4 mg BID@1700,1900 PO ; Start 01/26/21 at 17:00; Stop 01/26/21 at 19:01; Status DC Methylprednisolone (Medrol) 4 mg TIDPC PO Last administered on 01/27/21at 17:35; Start 01/27/21 at 08:30; Stop 01/27/21 at 17:31; Status DC Methylprednisolone (Medrol) 8 mg QHS PO Last administered on 01/27/21at 20:35; Start 01/27/21 at 21:00; Stop 01/27/21 at 21:01; Status DC Methylprednisolone (Medrol) 4 mg QIDAFTMEAL PO Last administered on 01/28/21at 20:05; Start 01/28/21 at 09:00; Stop 01/28/21 at 21:01; Status DC Methylprednisolone (Medrol) 4 mg TID PO Last administered on 01/29/21at 20:49; Start 01/29/21 at 09:00; Stop 01/29/21 at 21:01; Status DC Methylprednisolone (Medrol) 4 mg BID PO Last administered on 01/30/21at 08:38; Start 01/30/21 at 09:00; Stop 01/30/21 at 21:01 Methylprednisolone (Medrol) 4 mg DAILY PO ; Start 01/31/21 at 09:00; Stop 01/31/21 at 09:01 Pantoprazole Sodium (Protonix) 40 mg DAILYAC PO Last administered on 01/26/21at 19:53; Start 01/26/21 at 16:30; Stop 01/26/21 at 21:02; Status DC Sodium Chloride (Normal Saline Flush) 3 ml QSHIFT PRN IV AFTER MEDS AND BLOOD DRAWS; Start 01/26/21 at 14:45 Sodium Chloride 1,000 ml @ 75 mls/hr [id number] IV Last administered on 01/28/21at 06:20; Start 01/26/21 at 14:45; Stop 01/28/21 at 16:25; Status DC Ondansetron HCl (Zofran) 4 mg PRN Q4HRS PRN IV NAUSEA/VOMITING; Start 01/26/21 at 14:45 Acetaminophen (Tylenol) 650 mg PRN Q4HRS PRN PO TEMP OVER 100.4F OR MILD PAIN Last administered on 01/27/21at 05:42; Start 01/26/21 at 14:45 Acetaminophen (Tylenol Supp) 650 mg PRN Q4HRS PRN AR TEMP OVER 100.4F OR MILD PAIN; Start 01/26/21 at 14:45 Al Hydroxide/Mg Hydroxide (Mylanta Plus Xs) 30 ml PRN DAILY PRN PO HEARTBURN / GAS; Start 01/26/21 at 14:45 Clonidine HCl (Catapres) 0.1 mg PRN Q6HRS PRN PO SBP>160 OR DBP>90 Last administered on 01/29/21at 08:33; Start 01/26/21 at 14:45 Sodium Monofluorophosphate (Fleet Adult) 133 ml PRN DAILY PRN AR CONSTIPATION; Start 01/26/21 at 14:45 Docusate Sodium (Colace) 100 mg PRN BID PRN PO HARD STOOLS; Start 01/26/21 at 14:45 Albuterol Sulfate (Ventolin Neb Soln) 2.5 mg PRN Q4HRS PRN NEB SHORTNESS OF BREATH; Start 01/26/21 at 14:45 Guaifenesin (Robitussin) 200 mg PRN Q4HRS PRN PO COUGH; Start 01/26/21 at 14:45 Lorazepam (Ativan) 0.5 mg PRN Q4HRS PRN PO ANXIETY / AGITATION,2nd CHOICE; Start 01/26/21 at 14:45 Hydromorphone HCl (Dilaudid) 0.5 mg PRN Q2HRS PRN IV SEVERE PAIN 7-10 Last administered on 01/28/21at 15:14; Start 01/26/21 at 14:45; Stop 01/28/21 at 15:23; Status DC Enoxaparin Sodium (Lovenox 40mg Syringe) 40 mg Q24H SQ Last administered on 01/29/21at 16:29; Start 01/26/21 at 16:00 Atorvastatin Calcium (Lipitor) 40 mg HS PO Last administered on 01/29/21at 21:01; Start 01/26/21 at 21:00 Duloxetine HCl (Cymbalta) 20 mg BID PO Last administered on 01/30/21at 08:38; Start 01/26/21 at 21:00 Fluticasone Propionate (Flonase) 1 spray DAILY NS Last administered on 01/27/21at 08:49; Start 01/27/21 at 09:00 Levothyroxine Sodium (Synthroid) 50 mcg DAILY07 PO Last administered on 01/30/21at 06:07; Start 01/27/21 at 07:00 Lisinopril (Prinivil) 20 mg DAILY PO Last administered on 01/30/21at 08:37; Start 01/27/21 at 09:00 Pregabalin (Lyrica) 75 mg BID PO Last administered on 01/30/21at 08:37; Start 01/26/21 at 21:00 Sennosides (Senna) 17.2 mg BID PO Last administered on 01/29/21at 20:49; Start 01/26/21 at 21:00 Sucralfate (Carafate) 1 gm BID PO Last administered on 01/30/21 08:38; Start 01/26/21 at 21:00 Tamsulosin HCl (Flomax) 0.4 mg DAILY PO Last administered on 01/30/21at 08:36; Start 01/27/21 at 09:00 Zolpidem Tartrate (Ambien) 5 mg PRN QHS PRN PO INSOMNIA Last administered on 01/29/21at 21:08; Start 01/26/21 at 20:45 Lactobacillus Rhamnosus (Culturelle) 1 cap DAILY PO Last administered on 01/30/21at 08:38; Start 01/27/21 at 09:00 Calcium/Vitamin D (Oscal D 500mg/ 200uts) 1 tab BIDWMEALS PO Last administered on 01/30/21at 08:38; Start 01/27/21 at 08:00 Clonazepam (KlonoPIN) 1 mg PRN TID PRN PO ANXIETY / AGITATION,1st CHOICE Last administered on 01/29/21at 16:28; Start 01/26/21 at 21:00 Clonazepam (KlonoPIN) 2 mg HS PO Last administered on 01/29/21at 20:50; Start 01/26/21 at 21:00 Docusate Sodium (Colace) 100 mg BID PO Last administered on 01/30/21at 08:36; Start 01/26/21 at 21:00 Non-Formulary Medication (Lactobacillus Rhamnosus Gg (Culturelle)) 1 cap DAILY PO ; Start 01/27/21 at 09:00; Stop 01/26/21 at 20:58; Status DC Lurasidone HCl (Latuda) 60 mg DAILYWBKFT PO Last administered on 01/30/21at 08:39; Start 01/27/21 at 08:00 Multivitamins (Thera M Plus) 1 tab DAILY PO Last administered on 01/30/21at 08:38; Start 01/27/21 at 09:00 Non-Formulary Medication (Naloxegol Oxalate (Movantik)) 25 mg DAILY PO ; Start 01/27/21 at 09:00; Stop 01/27/21 at 16:13; Status DC Pantoprazole Sodium (Protonix) 40 mg DAILYAC PO Last administered on 01/30/21 06:07; Start 01/27/21 at 07:30 Vitamin E (Vitamin E) 200 unit DAILY PO Last administered on 01/30/21at 08:38; Start 01/27/21 at 09:00 Non-Formulary Medication ([cranber] ) 450 mg DAILY PRN PO urinary; Start 01/26/21 at 20:45; Stop 01/26/21 at 20:57; Status DC Cyanocobalamin (Vitamin B-12) 500 mcg DAILY PO Last administered on 01/30/21at 08:39; Start 01/27/21 at 09:00 Vitamin D (Vitamin D3) 1,000 unit DAILY PO Last administered on 01/30/21 08:39; Start 01/27/21 at 09:00 Fentanyl (Duragesic 50mcg/ Hr Patch) 1 patch Q72H TD Last administered on 01/28/21 12:32; Start 01/28/21 at 12:00 Diclofenac Sodium (Voltaren) 1 catia DAILY TP Last administered on 01/28/21 14:01; Start 01/28/21 at 12:00 Hydromorphone HCl (Dilaudid) 1 mg PRN Q4HRS PRN PO MOD TO SEV PAIN, 2ND CHOICE Last administered on 01/30/21 02:59; Start 01/28/21 at 15:30 Hydralazine HCl (Apresoline Inj) 10 mg PRN Q4HRS PRN IVP ELEVATED BP, SEE COMMENTS Last administered on 01/28/21 23:17; Start 01/28/21 at 23:15 Magnesium Citrate (Citroma) 296 ml PRN 1X PRN PO CONSTIPATION Last administered on 01/29/21 12:18; Start 01/29/21 at 09:15 Bisacodyl (Dulcolax Supp) 10 mg PRN DAILY PRN AR CONSTIPATION Last administered on 01/29/21 12:19; Start 01/29/21 at 09:15 Bisacodyl (Dulcolax Tab) 10 mg DAILY PO ; Start 01/29/21 at 09:15 Active Scripts Active Medrol (Methylprednisolone) 4 Mg Tab.ds.pk 1 Pkg PO UD 6 Days Reported Zolpidem Tartrate 5 Mg Tablet 10 Mg PO QHS PRN Vitamin E (Vitamin E Mixed) 400 Unit Tablet 200 Unit PO DAILY [vitamin D] 1,000 Intlu PO DAILY [vitamin] [vitamin b12] 500 Mcg PO DAILY Flomax (Tamsulosin Hcl) 0.4 Mg Cap.er.24h 0.4 Mg PO DAILY Sucralfate 1 Gm Tablet 1 Gm PO BID Senna Laxative (Sennosides) 8.6 Mg Tablet 2 Tab PO BID 30 Days Trang-Bid Caplet (Acidoph/L.bulg/Bif.b/S.thermop) 1 Each Tablet 1 Each PO DAILY Lyrica (Pregabalin) 75 Mg Capsule 75 Mg PO BID Omeprazole 20 Mg Capsule.dr 20 Mg PO DAILY One-Daily Multi-Vitamin (Multivitamin) 1 Each Tablet 1 Tab PO DAILY 30 Days Movantik (Naloxegol Oxalate) 25 Mg Tablet 25 Mg PO DAILY Lisinopril 20 Mg Tablet 1 Tab PO DAILY Levothyroxine Sodium 50 Mcg Tablet 1 Tab PO DAILY Latuda (Lurasidone Hcl) 60 Mg Tablet 60 Mg PO DAILY Culturelle (Lactobacillus Rhamnosus Gg) 1 Each Capsule 1 Cap PO DAILY 30 Days Cymbalta (Duloxetine Hcl) 20 Mg Capsule.dr 20 Mg PO BID Colace Clear (Docusate Sodium) 50 Mg Capsule 1 Cap PO BID 30 Days [cranber] 450 Mg PO DAILY PRN Fluticasone Propionate Nasal [place] (Fluticasone Propionate) 16 Gm [place].susp 1 [place] NS DAILY FENTANYL 50mcg/hr (Fentanyl) 1 Each Patch.td72 1 Patch TD Q72H Clonazepam 2 Mg Tablet 2 Mg PO HS Clonazepam 1 Mg Tablet 1 Mg PO TID Calcium 600 + Vit D3 Caplet (Calcium Carbonate/Vitamin D3) 1 Each Tablet 1 Tab PO BID 30 Days Atorvastatin Calcium 40 Mg Tablet 40 Mg PO HS Vitals/I & O Vital Sign - Last 24 Hours 01/29/21 01/29/21 01/29/21 01/29/21 11:00 11:10 12:22 13:46 Temp 98.0 98.0 Pulse 66 Resp 17 B/P (MAP) 128/86 (100) Pulse Ox 95 95 95 95 O2 Delivery Room Air Room Air Room Air Room Air 01/29/21 01/29/21 01/29/21 01/29/21 14:28 15:00 16:29 18:41 Temp 98.0 98.0 Pulse 73 Resp 16 17 B/P (MAP) 129/87 (101) Pulse Ox 95 96 96 96 O2 Delivery Room Air Room Air Room Air Room Air 01/29/21 01/29/21 01/29/21 01/29/21 19:11 19:30 20:30 21:02 Temp 98.1 98.1 Pulse 57 Resp 18 B/P (MAP) 124/72 (89) Pulse Ox 94 94 O2 Delivery Room Air Room Air Room Air Room Air 01/29/21 01/29/21 01/30/21 01/30/21 21:32 23:45 01:12 01:42 Temp 97.8 97.8 Pulse 54 Resp 18 18 14 B/P (MAP) 154/82 (106) Pulse Ox 94 94 O2 Delivery Room Air Room Air Room Air Room Air 01/30/21 01/30/21 01/30/21 01/30/21 02:57 02:59 03:29 07:00 Temp 98.2 97.9 98.2 97.9 Pulse 62 51 Resp 18 18 17 B/P (MAP) 138/88 (105) 162/79 (106) Pulse Ox 94 94 91 O2 Delivery Room Air Room Air Room Air Room Air 01/30/21 08:37 Pulse 62 B/P (MAP) 138/88 Intake and Output 01/29/21 01/29/21 01/30/21 15:00 23:00 07:00 Intake Total 100 ml 240 ml Output Total 250 ml Balance 100 ml -10 ml Justifications for Admission Other Justification intractable lumbar radiculopathy FRANCISCO JAVIER GIORDANO MD Jan 30, 2021 08:51
--- NOTE | 2021-01-30 10:07 | PDOC ---
[employer] PROGRESS NOTE Date of Service DOS: DATE: 01/30/21 TIME: 10:05 Chief Complaint Chief Complaint Acute severe lumbar radiculopathy, with intractable pain probable severe spinal canal stenosis at least at L4-L5. There is a large disc herniation at T12-L1 likely contributing to marked severe spinal canal and left lateral recess stenosis Morbid obesity Plan: IV PAIN CONTROL Neurosurgery consult iv pain control PT/OT Consider MRI L/S Consult dr rogers [place] nadja dvt prophylaxis History of Present Illness History of Present Illness 60 year old female who presented emergency department via EMS with complaints of pain in her left leg that radiates from her low back to her knee. she has been moving residences recently and has been doing a lot of bending./ 6 or 7 days ago she felt like she pulled a muscle. denies any numbness, tingling, or weakness of her lower left extremity. CT C/W probable severe spinal canal stenosis at least at L4-L5. There is a large disc herniation at T12-L1 likely contributing to marked severe spinal canal and left lateral recess stenosis admitted with Acute severe lumbar radiculopathy, with intractable pain // wearing a fentanyl pain patch with no benefit./ pain is worse with movement. 01/27/2021: Patient still with complaints of hip pain. Received left sacroiliac joint injection with some improvement. Await MRI results. She does have a prosthetic limb and admits to no longer working with physical therapy once COVID-19 hit. Over the past 2 years she has been mostly mobile with aid of a wheelchair. Discussed potential for physical therapy regardless of MRI results. Patient states that she does not want to discharge to prison, and would feel more comfortable discharging home with home health and her wheelchair. Await PT/OT recommendations barring MRI results. 01/28/2021: An MRI yesterday that showed moderate thoracolumbar spondylosis and severe neural foraminal narrowing at L3-4 on left. States her pain is improved. Will defer to neurosurgery in this regard. She does report regular fentanyl patch use 50 mcg to her lower back that she changes every 3 days over the past couple years. She is followed with pain management doctor. Regardless in her decision about surgical intervention or not, she is still refusing SNU; she prefers eventually to discharge home with home health services and outpatient PT. Currently on Medrol taper. Will obtain hemoglobin A1c. 01/29/2021: Feels okay, pain controlled. Per Dr. Pruitt, she may benefit from lumbar epidural steroid injections and SNU. I discussion with patient yesterday afternoon after my initial visit and this morning; she is agreeable to SNU. She has a pain management doctor that she has been in touch with on the phone while inpatient. Informed patient and social worker health services that as to not violate any pain management will provide information for patient to update her pain management doctor about the pharmacies used at whichever prison facility she may be accepted to. 01/30/2021: Patient seen and evaluated bedside. She denies any symptoms of fever, shortness of breath, sore throat, cough, nausea, or vomiting. She does admit to some occasional diarrhea. She is COVID-19 positive. After my informing her of her test results she now admits to having a cough for the past 4 days. She has been fully vaccinated against COVID-19. Will move patient to COVID-19 unit. Informed her that her positive result may delay her rehab placement. Discussed with RN. Vitals/I&O Vitals/I&O: Vital Signs Date Time Temp Pulse Resp B/P (MAP) Pulse Ox O2 Delivery O2 Flow Rate FiO2 01/30/21 08:37 62 138/88 01/30/21 07:00 97.9 17 91 Room Air 97.9 I & O 01/29/21 01/29/21 01/30/21 15:00 23:00 07:00 Intake Total 100 ml 240 ml Output Total 250 ml Balance 100 ml -10 ml Physical Exam General: Alert, Oriented X3, Cooperative, No acute distress Heart: Regular rate Lungs: Clear Abdomen: Normal bowel sounds, Soft Extremities: No cyanosis Skin: No significant lesion Labs Labs: Laboratory Tests Test 01/29/21 13:40 01/29/21 14:13 SARS-CoV-2 RNA (GREGORIO) Positive (Negative) SARS-CoV-2 Antigen (Rapid) Negative (NEGATIVE) Sodium Level 133 mmol/L (136-145) Potassium Level 3.7 mmol/L (3.5-5.1) Chloride Level 102 mmol/L (98-107) Carbon Dioxide Level 20 mmol/L (21-32) Anion Gap 11 (6-14) Blood Urea Nitrogen 14 mg/dL (7-20) Creatinine 0.9 mg/dL (0.6-1.0) Estimated GFR (Cockcroft-Gault) 63.4 Glucose Level 110 mg/dL (70-99) Hemoglobin A1c 5.6 % (4.8-5.6) Calcium Level 9.7 mg/dL (8.5-10.1) Assessment and Plan Assessmemt and Plan Problems Medical Problems: (1) Acute left-sided low back pain with sciatica Status: Acute (2) Intractable low back pain Status: Acute (3) Unable to ambulate Status: Acute Comment Review of Relevant I have reviewed the following items luis (where applicable) has been applied. Medications: Current Medications Medications (Trade) Dose Ordered Sig/Bennie Route PRN Reason Start Time Stop Time Status Last Admin Dose Admin Methylprednisolone (Medrol) 4 mg BID PO 01/30/21 09:00 01/30/21 21:01 01/30/21 08:38 Justifications for Admission Other Justification intractable lumbar radiculopathy ASAEL ALVAREZ MD Jan 30, 2021 10:07
[2021-01-30] MEDS ORDERED: guaiFENesin DM 200MG/20MG 10 ML SYRUP PO PRN (10:15)
[2021-01-30 11:00] VITALS: BP 159/81
[2021-01-30] MEDS: clonazePAM 0.5 MG TABLET PO PRN (12:15)
[2021-01-30 15:00] VITALS: BP 141/82
[2021-01-30] MEDS: cefTRIAXone IV Push 1 GM VIAL. IVP SCH (15:03)
[2021-01-30] MEDS: LORazepam 0.5 MG TABLET PO PRN (15:07)
[2021-01-30] MEDS: ENOXAPARIN 40 MG/0.4 ML SYRINGE. SQ SCH ×2 (15:10→20:31)
[2021-01-30 19:00] VITALS: BP 147/90
[2021-01-30] MEDS: clonazePAM 0.5 MG TABLET PO SCH (20:32)
[2021-01-30] MEDS: ATORVASTATIN CALCIUM 40 MG TABLET. PO SCH (20:33)
[2021-01-30] MEDS: ZOLPIDEM 5 MG TABLET. PO PRN (20:33)
[2021-01-30] MEDS: PATCH REMOVAL. MC SCH (21:00)
[2021-01-30 23:00] VITALS: BP 157/94
[2021-01-31] VITALS (8 sets, daily range): BP systolic 108–188; BP diastolic 77–96
[2021-01-31] MEDS: HYDROmorphone 2 MG TABLET PO PRN ×3 (00:56→13:58)
[2021-01-31] MEDS: HYDROcodone/APAP 10/325 1 TAB TABLET PO PRN ×4 (03:08→21:24)
[2021-01-31] MEDS: LEVOTHYROXINE 50 MCG TABLET PO SCH (06:19)
[2021-01-31] MEDS: tiZANidine 4 MG TABLET. PO PRN (06:40)
[2021-01-31] MEDS: clonazePAM 0.5 MG TABLET PO PRN ×2 (06:48→17:33)
[2021-01-31] MEDS: DULoxetine HCL 20 MG CAPSULE.DR PO SCH ×2 (08:54→21:23)
[2021-01-31] MEDS: CYANOCOBALAMIN (VITAMIN B-12) 1,000 MCG TABLET. PO SCH (08:54)
[2021-01-31] MEDS: LURASIDONE 40 MG TABLET. PO SCH (08:54)
[2021-01-31] MEDS: VITAMIN E 200 UNIT CAPSULE. PO SCH (08:54)
[2021-01-31] MEDS: SUCRALFATE 1 GM TABLET. PO SCH ×2 (08:55→21:23)
[2021-01-31] MEDS: SENNOSIDES 8.6 MG TABLET PO SCH ×2 (08:55→21:23)
[2021-01-31] MEDS: BISACODYL 5 MG TABLET.DR. PO SCH (08:55)
[2021-01-31] MEDS: TAMSULOSIN 0.4 MG CAP.ER.24H. PO SCH (08:56)
[2021-01-31] MEDS: CHOLECALCIFEROL (VITAMIN D3) 1,000 UNIT TABLET PO SCH (08:56)
[2021-01-31] MEDS: LISINOPRIL 20 MG TABLET PO SCH (08:56)
[2021-01-31] MEDS: LACTOBACILLUS RHAMNOSUS GG 1 CAPSULE. PO SCH (08:57)
[2021-01-31] MEDS: CALCIUM CARB/VIT D3 500/200 TABLET. PO SCH ×2 (08:57→16:41)
[2021-01-31] MEDS: PANTOPRAZOLE 40 MG TABLET.DR. PO SCH (08:57)
[2021-01-31] MEDS: MULTIVITAMIN with MINERAL TABLET. PO SCH (08:57)
[2021-01-31] MEDS: PREGABALIN 75 MG CAPSULE PO SCH ×2 (08:57→21:23)
[2021-01-31] MEDS: LIDOCAINE (700MG/PATCH) PATCH. TD SCH (08:58)
[2021-01-31] MEDS: DICLOFENAC SODIUM 1% TOPICAL GEL 100GM TUBE. TP SCH (08:59)
[2021-01-31] MEDS: FLUTICASONE 50MCG/NASAL SPRAY 16GM BOTTLE. NS SCH (08:59)
[2021-01-31] MEDS: DOCUSATE SODIUM 100 MG CAPSULE. PO SCH ×2 (08:59→21:23)
[2021-01-31] MEDS ORDERED: methylPREDNISolone 4 MG TABLET. PO SCH (09:00)
[2021-01-31] MEDS: LORazepam 0.5 MG TABLET PO PRN ×2 (09:08→13:58)
--- NOTE | 2021-01-31 09:40 | PDOC ---
PROGRESS NOTES Date of Service DATE: 01/31/21 TIME: 09:38 Subjective Subjective She admits continued pain in her left lower extremity. She tested positive for Covid-19,despite having vaccine. She continues to require assistance for bed mobility and transfers. Objective Objective Vital Signs Date Time Temp Pulse Resp B/P (MAP) Pulse Ox O2 Delivery O2 Flow Rate FiO2 01/31/21 08:57 Room Air 01/31/21 08:56 59 178/96 01/31/21 07:13 18 96 01/31/21 07:00 98.4 98.4 01/31/21 06:41 1.0 Intake and Output 01/31/21 07:00 Output Total 300 ml Balance -300 ml Output Urine Total 300 ml # Voids 2 # Bowel Movements 1 Physical Exam Physical Exam To continue present care efforts as tolerated. Assessment Assessment Problems Medical Problems: (1) Acute left-sided low back pain with sciatica Status: Acute (2) Intractable low back pain Status: Acute (3) Unable to ambulate Status: Acute Comment Review of Relevant I have reviewed the following items luis (where applicable) has been applied. Labs Laboratory Tests Test 01/29/21 13:40 01/29/21 14:13 SARS-CoV-2 RNA (GREGORIO) Positive (Negative) SARS-CoV-2 Antigen (Rapid) Negative (NEGATIVE) Sodium Level 133 mmol/L (136-145) Potassium Level 3.7 mmol/L (3.5-5.1) Chloride Level 102 mmol/L (98-107) Carbon Dioxide Level 20 mmol/L (21-32) Anion Gap 11 (6-14) Blood Urea Nitrogen 14 mg/dL (7-20) Creatinine 0.9 mg/dL (0.6-1.0) Estimated GFR (Cockcroft-Gault) 63.4 Glucose Level 110 mg/dL (70-99) Hemoglobin A1c 5.6 % (4.8-5.6) Calcium Level 9.7 mg/dL (8.5-10.1) Microbiology 01/26/21 Urine Culture - Final, Complete 01/26/21 Antimicrobic Susceptibility - Final, Complete Medications Current Medications Dexamethasone Sodium Phosphate (Decadron) 10 mg 1X ONCE IM Last administered on 01/25/21at 22:25; Start 01/25/21 at 22:30; Stop 01/25/21 at 22:31; Status DC Orphenadrine Citrate (Norflex) 60 mg 1X ONCE IM Last administered on 01/25/21at 22:23; Start 01/25/21 at 22:30; Stop 01/25/21 at 22:31; Status DC Clonidine HCl (Catapres) 0.1 mg 1X ONCE PO Last administered on 01/25/21at 23:05; Start 01/25/21 at 23:00; Stop 01/25/21 at 23:01; Status DC Acetaminophen/ Hydrocodone Bitart (Lortab 5/325) 1 tab 1X ONCE PO Last administered on 01/26/21at 01:26; Start 01/26/21 at 01:30; Stop 01/26/21 at 01:31; Status DC Clonazepam (KlonoPIN) 2 mg 1X ONCE PO Last administered on 01/26/21at 01:29; Start 01/26/21 at 01:30; Stop 01/26/21 at 01:31; Status DC Acetaminophen/ Hydrocodone Bitart (Lortab 5/325) 1 tab 1X ONCE PO Last administered on 01/26/21at 04:54; Start 01/26/21 at 05:00; Stop 01/26/21 at 05:01; Status DC Clonazepam (KlonoPIN) 2 mg 1X PRN PRN PO ANXIETY / AGITATION Last administered on 01/26/21at 09:13; Start 01/26/21 at 06:15; Stop 01/26/21 at 10:00; Status DC Hydromorphone HCl (Dilaudid) 0.4 mg PRN Q4HRS PRN IVP MODERATE TO SEVERE PAIN Last administered on 01/28/21at 06:15; Start 01/26/21 at 10:00; Stop 01/28/21 at 15:23; Status DC Methylprednisolone Acetate (DEPO-Medrol 40MG VIAL) 40 mg 1X ONCE IM ; Start 01/26/21 at 15:00; Stop 01/26/21 at 15:01; Status DC Bupivacaine HCl (Sensorcaine-Mpf 0.25%) 10 ml 1X ONCE IJ ; Start 01/26/21 at 15:00; Stop 01/26/21 at 15:01; Status DC Acetaminophen/ Hydrocodone Bitart (Lortab 10/325) 1 tab PRN Q6HRS PRN PO MOD TO SEVERE PAIN, 1ST CHOICE Last administered on 01/31/21 08:57; Start 01/26/21 at 14:30 Lidocaine (Lidoderm) 1 patch DAILY TD Last administered on 01/31/21 08:58; Start 01/26/21 at 14:00 Miscellaneous (Lidoderm Patch Removal) 1 ea QHS MC Last administered on 01/30/21at 21:00; Start 01/26/21 at 21:00 Tizanidine HCl (Zanaflex) 4 mg PRN Q8HRS PRN PO MUSCLE SPASMS Last administered on 01/31/21at 06:40; Start 01/26/21 at 14:30 Methylprednisolone (Medrol) 8 mg BID PO Last administered on 01/26/21at 21:36; Start 01/26/21 at 15:00; Stop 01/26/21 at 21:01; Status DC Methylprednisolone (Medrol) 4 mg BID@1700,1900 PO ; Start 01/26/21 at 17:00; Stop 01/26/21 at 19:01; Status DC Methylprednisolone (Medrol) 4 mg TIDPC PO Last administered on 01/27/21at 17:35; Start 01/27/21 at 08:30; Stop 01/27/21 at 17:31; Status DC Methylprednisolone (Medrol) 8 mg QHS PO Last administered on 01/27/21at 20:35; Start 01/27/21 at 21:00; Stop 01/27/21 at 21:01; Status DC Methylprednisolone (Medrol) 4 mg QIDAFTMEAL PO Last administered on 01/28/21at 20:05; Start 01/28/21 at 09:00; Stop 01/28/21 at 21:01; Status DC Methylprednisolone (Medrol) 4 mg TID PO Last administered on 01/29/21at 20:49; Start 01/29/21 at 09:00; Stop 01/29/21 at 21:01; Status DC Methylprednisolone (Medrol) 4 mg BID PO Last administered on 01/30/21at 20:31; Start 01/30/21 at 09:00; Stop 01/30/21 at 21:01; Status DC Methylprednisolone (Medrol) 4 mg DAILY PO Last administered on 01/31/21at 08:55; Start 01/31/21 at 09:00; Stop 01/31/21 at 09:01; Status DC Pantoprazole Sodium (Protonix) 40 mg DAILYAC PO Last administered on 01/26/21at 19:53; Start 01/26/21 at 16:30; Stop 01/26/21 at 21:02; Status DC Sodium Chloride (Normal Saline Flush) 3 ml QSHIFT PRN IV AFTER MEDS AND BLOOD DRAWS; Start 01/26/21 at 14:45 Sodium Chloride 1,000 ml @ 75 mls/hr [id number] IV Last administered on 01/28/21at 06:20; Start 01/26/21 at 14:45; Stop 01/28/21 at 16:25; Status DC Ondansetron HCl (Zofran) 4 mg PRN Q4HRS PRN IV NAUSEA/VOMITING; Start 01/26/21 at 14:45 Acetaminophen (Tylenol) 650 mg PRN Q4HRS PRN PO TEMP OVER 100.4F OR MILD PAIN Last administered on 01/27/21at 05:42; Start 01/26/21 at 14:45 Acetaminophen (Tylenol Supp) 650 mg PRN Q4HRS PRN PA TEMP OVER 100.4F OR MILD PAIN; Start 01/26/21 at 14:45 Al Hydroxide/Mg Hydroxide (Mylanta Plus Xs) 30 ml PRN DAILY PRN PO HEARTBURN / GAS; Start 01/26/21 at 14:45 Clonidine HCl (Catapres) 0.1 mg PRN Q6HRS PRN PO SBP>160 OR DBP>90 Last administered on 01/29/21at 08:33; Start 01/26/21 at 14:45 Sodium Monofluorophosphate (Fleet Adult) 133 ml PRN DAILY PRN PA CONSTIPATION,2nd RECTAL CHOICE; Start 01/26/21 at 14:45 Docusate Sodium (Colace) 100 mg PRN BID PRN PO HARD STOOLS; Start 01/26/21 at 14:45 Albuterol Sulfate (Ventolin Neb Soln) 2.5 mg PRN Q4HRS PRN NEB SHORTNESS OF BREATH; Start 01/26/21 at 14:45 Guaifenesin (Robitussin) 200 mg PRN Q4HRS PRN PO COUGH; Start 01/26/21 at 14:45 Lorazepam (Ativan) 0.5 mg PRN Q4HRS PRN PO ANXIETY / AGITATION,2nd CHOICE Last administered on 01/31/21 09:08; Start 01/26/21 at 14:45 Hydromorphone HCl (Dilaudid) 0.5 mg PRN Q2HRS PRN IV SEVERE PAIN 7-10 Last administered on 01/28/21at 15:14; Start 01/26/21 at 14:45; Stop 01/28/21 at 15:2 3; Status DC Enoxaparin Sodium (Lovenox 40mg Syringe) 40 mg Q24H SQ Last administered on 01/30/21 20:31; Start 01/26/21 at 16:00 Atorvastatin Calcium (Lipitor) 40 mg HS PO Last administered on 01/30/21 20:33; Start 01/26/21 at 21:00 Duloxetine HCl (Cymbalta) 20 mg BID PO Last administered on 01/31/21at 08:54; Start 01/26/21 at 21:00 Fluticasone Propionate (Flonase) 1 spray DAILY NS Last administered on 01/31/21 08:59; Start 01/27/21 at 09:00 Levothyroxine Sodium (Synthroid) 50 mcg DAILY07 PO Last administered on 01/31/21 06:19; Start 01/27/21 at 07:00 Lisinopril (Prinivil) 20 mg DAILY PO Last administered on 01/31/21 08:56; Start 01/27/21 at 09:00 Pregabalin (Lyrica) 75 mg BID PO Last administered on 01/31/21 08:57; Start 01/26/21 at 21:00 Sennosides (Senna) 17.2 mg BID PO Last administered on 01/31/21 08:55; Start 01/26/21 at 21:00 Sucralfate (Carafate) 1 gm BID PO Last administered on 01/31/21 08:55; Start 01/26/21 at 21:00 Tamsulosin HCl (Flomax) 0.4 mg DAILY PO Last administered on 01/31/21 08:56; Start 01/27/21 at 09:00 Zolpidem Tartrate (Ambien) 5 mg PRN QHS PRN PO INSOMNIA Last administered on 01/30/21at 20:33; Start 01/26/21 at 20:45 Lactobacillus Rhamnosus (Culturelle) 1 cap DAILY PO Last administered on 01/31/21 08:57; Start 01/27/21 at 09:00 Calcium/Vitamin D (Oscal D 500mg/ 200uts) 1 tab BIDWMEALS PO Last administered on 01/31/21at 08:57; Start 01/27/21 at 08:00 Clonazepam (KlonoPIN) 1 mg PRN TID PRN PO ANXIETY / AGITATION,1st CHOICE Last administered on 01/31/21at 06:48; Start 01/26/21 at 21:00 Clonazepam (KlonoPIN) 2 mg HS PO Last administered on 01/30/21at 20:32; Start 01/26/21 at 21:00 Docusate Sodium (Colace) 100 mg BID PO Last administered on 01/31/21at 08:59; Start 01/26/21 at 21:00 Non-Formulary Medication (Lactobacillus Rhamnosus Gg (Culturelle)) 1 cap DAILY PO ; Start 01/27/21 at 09:00; Stop 01/26/21 at 20:58; Status DC Lurasidone HCl (Latuda) 60 mg DAILYWBKFT PO Last administered on 01/31/21at 08:54; Start 01/27/21 at 08:00 Multivitamins (Thera M Plus) 1 tab DAILY PO Last administered on 01/31/21at 08:57; Start 01/27/21 at 09:00 Non-Formulary Medication (Naloxegol Oxalate (Movantik)) 25 mg DAILY PO ; Start 01/27/21 at 09:00; Stop 01/27/21 at 16:13; Status DC Pantoprazole Sodium (Protonix) 40 mg DAILYAC PO Last administered on 01/31/21at 08:57; Start 01/27/21 at 07:30 Vitamin E (Vitamin E) 200 unit DAILY PO Last administered on 01/31/21at 08:54; Start 01/27/21 at 09:00 Non-Formulary Medication ([cranber] ) 450 mg DAILY PRN PO urinary; Start 01/26/21 at 20:45; Stop 01/26/21 at 20:57; Status DC Cyanocobalamin (Vitamin B-12) 500 mcg DAILY PO Last administered on 01/31/21 08:54; Start 01/27/21 at 09:00 Vitamin D (Vitamin D3) 1,000 unit DAILY PO Last administered on 01/31/21 08:56; Start 01/27/21 at 09:00 Fentanyl (Duragesic 50mcg/ Hr Patch) 1 patch Q72H TD Last administered on 01/28/21at 12:32; Start 01/28/21 at 12:00 Diclofenac Sodium (Voltaren) 1 catia DAILY TP Last administered on 01/31/21at 08:59; Start 01/28/21 at 12:00 Hydromorphone HCl (Dilaudid) 1 mg PRN Q4HRS PRN PO MOD TO SEV PAIN, 2ND CHOICE Last administered on 01/31/21 06:41; Start 01/28/21 at 15:30 Hydralazine HCl (Apresoline Inj) 10 mg PRN Q4HRS PRN IVP ELEVATED BP, SEE COMMENTS Last administered on 01/28/21at 23:17; Start 01/28/21 at 23:15 Magnesium Citrate (Citroma) 296 ml PRN 1X PRN PO CONSTIPATION Last administered on 01/29/21 12:18; Start 01/29/21 at 09:15 Bisacodyl (Dulcolax Supp) 10 mg PRN DAILY PRN PA CONSTIPATION,1st RECTAL CHOICE Last administered on 01/29/21at 12:19; Start 01/29/21 at 09:15 Bisacodyl (Dulcolax Tab) 10 mg DAILY PO Last administered on 01/31/21at 08:55; Start 01/29/21 at 09:15 Guaifenesin (Robitussin Dm) 10 ml PRN Q6HRS PRN PO COUGH- 2ND CHOICE; Start 01/30/21 at 10:15 Ceftriaxone Sodium (Rocephin) 1 gm Q24H IVP Last administered on 01/30/21at 15:03; Start 01/30/21 at 14:00; Stop 02/01/21 at 14:01 Active Scripts Active Medrol (Methylprednisolone) 4 Mg Tab.ds.pk 1 Pkg PO UD 6 Days Reported Zolpidem Tartrate 5 Mg Tablet 10 Mg PO QHS PRN Vitamin E (Vitamin E Mixed) 400 Unit Tablet 200 Unit PO DAILY [vitamin D] 1,000 Intlu PO DAILY [vitamin] [vitamin b12] 500 Mcg PO DAILY Flomax (Tamsulosin Hcl) 0.4 Mg Cap.er.24h 0.4 Mg PO DAILY Sucralfate 1 Gm Tablet 1 Gm PO BID Senna Laxative (Sennosides) 8.6 Mg Tablet 2 Tab PO BID 30 Days Trang-Bid Caplet (Acidoph/L.bulg/Bif.b/S.thermop) 1 Each Tablet 1 Each PO DAILY Lyrica (Pregabalin) 75 Mg Capsule 75 Mg PO BID Omeprazole 20 Mg Capsule.dr 20 Mg PO DAILY One-Daily Multi-Vitamin (Multivitamin) 1 Each Tablet 1 Tab PO DAILY 30 Days Movantik (Naloxegol Oxalate) 25 Mg Tablet 25 Mg PO DAILY Lisinopril 20 Mg Tablet 1 Tab PO DAILY Levothyroxine Sodium 50 Mcg Tablet 1 Tab PO DAILY Latuda (Lurasidone Hcl) 60 Mg Tablet 60 Mg PO DAILY Culturelle (Lactobacillus Rhamnosus Gg) 1 Each Capsule 1 Cap PO DAILY 30 Days Cymbalta (Duloxetine Hcl) 20 Mg Capsule.dr 20 Mg PO BID Colace Clear (Docusate Sodium) 50 Mg Capsule 1 Cap PO BID 30 Days [cranber] 450 Mg PO DAILY PRN Fluticasone Propionate Nasal Weems (Fluticasone Propionate) 16 Gm Weems.susp 1 Weems NS DAILY FENTANYL 50mcg/hr (Fentanyl) 1 Each Patch.td72 1 Patch TD Q72H Clonazepam 2 Mg Tablet 2 Mg PO HS Clonazepam 1 Mg Tablet 1 Mg PO TID Calcium 600 + Vit D3 Caplet (Calcium Carbonate/Vitamin D3) 1 Each Tablet 1 Tab PO BID 30 Days Atorvastatin Calcium 40 Mg Tablet 40 Mg PO HS Vitals/I & O Vital Sign - Last 24 Hours 01/30/21 01/30/21 01/30/21 01/30/21 10:09 10:39 11:00 15:00 Temp 98.0 98.2 98.0 98.2 Pulse 59 84 Resp 18 20 B/P (MAP) 159/81 (107) 141/82 (101) Pulse Ox 93 92 O2 Delivery Room Air Room Air 01/30/21 01/30/21 01/30/21 01/30/21 15:04 15:45 19:00 20:32 Temp 97.7 97.7 Resp 19 19 20 B/P (MAP) 147/90 (109) Pulse Ox 93 93 O2 Delivery Room Air Room Air Room Air Room Air 01/30/21 01/30/21 01/30/21 01/31/21 21:00 21:00 23:00 00:56 Temp 97.7 97.7 Pulse 60 Resp 20 B/P (MAP) 157/94 (115) Pulse Ox 99 O2 Delivery Room Air Room Air Nasal Cannula Room Air 01/31/21 01/31/21 01/31/21 01/31/21 03:14 03:23 04:20 06:41 Temp 98.6 98.6 98.6 98.6 Pulse 67 67 Resp 20 18 18 B/P (MAP) 172/92 (118) 168/88 (114) Pulse Ox 96 96 96 96 O2 Delivery Room Air Room Air Room Air Room Air O2 Flow Rate 1.0 1.0 01/31/21 01/31/21 01/31/21 01/31/21 07:00 07:13 08:56 08:57 Temp 98.4 98.4 Pulse 59 59 Resp 16 18 B/P (MAP) 178/96 (123) 178/96 Pulse Ox 94 96 O2 Delivery Room Air Room Air Room Air Intake and Output 01/30/21 01/30/21 01/31/21 15:00 23:00 07:00 Output Total 300 ml Balance -300 ml Justifications for Admission Other Justification intractable lumbar radiculopathy FRANCISCO JAVIER GIORDANO MD Jan 31, 2021 09:40
[2021-01-31] MEDS: fentaNYL 50MCG/HR PATCH 1 PATCH PATCH.TD72 TD SCH (12:23)
[2021-01-31] MEDS: cefTRIAXone IV Push 1 GM VIAL. IVP SCH (13:59)
--- NOTE | 2021-01-31 15:36 | PDOC ---
[employer] PROGRESS NOTE Date of Service DOS: DATE: 01/31/21 TIME: 15:23 Chief Complaint Chief Complaint A/P: Acute severe lumbar radiculopathy, with intractable pain probable severe spinal canal stenosis at least at L4-L5. There is a large disc herniation at T12-L1 likely contributing to marked severe spinal canal and left lateral recess stenosis Morbid obesity Plan: IV PAIN CONTROL Neurosurgery consult iv pain control PT/OT Consider MRI L/S Consult dr rogers [facility] dvt prophylaxis History of Present Illness History of Present Illness Ms Oliva is a 60 year old female w/ PMHx s/p right BKA OSTEOPOROSIS, SLIPPED DISCS, gastric bypass, smoker who who presented emergency department via EMS with complaints of pain in her left leg that radiates from her low back to her knee. she has been moving residences recently and has been doing a lot of bending./ 6 or 7 days ago she felt like she pulled a muscle. denies any numbness, tingling, or weakness of her lower left extremity. CT C/W probable severe spinal canal stenosis at least at L4-L5. There is a large disc herniation at T12-L1 likely contributing to marked severe spinal canal and left lateral recess stenosis. She was living in assisted living and just moved into her own apartment. Been struggling with mobility as for the last year and a half she has not had her right lower extremity prosthetic on if she is not been going to therapy anymore. admitted with Acute severe lumbar radiculopathy, with intractable pain // wearing a fentanyl pain patch with no benefit./ pain is worse with movement. 01/27/2021: Patient still with complaints of hip pain. Received left sacroiliac joint injection with some improvement. Await MRI results. She does have a prosthetic limb and admits to no longer working with physical therapy once [place] VID-19 hit. Over the past 2 years she has been mostly mobile with aid of a wheelchair. Discussed potential for physical therapy regardless of MRI results. Patient states that she does not want to discharge to jail, and would feel more comfortable discharging home with home health and her wheelchair. Await PT/OT recommendations barring MRI results. 01/28/2021: An MRI yesterday that showed moderate thoracolumbar spondylosis and severe neural foraminal narrowing at L3-4 on left. States her pain is improved. Will defer to neurosurgery in this regard. She does report regular fentanyl patch use 50 mcg to her lower back that she changes every 3 days over the past couple years. She is followed with pain management doctor. Regardless in her decision about surgical intervention or not, she is still refusing SNU; she prefers eventually to discharge home with home health services and outpatient PT. Currently on Medrol taper. Will obtain hemoglobin A1c. 01/29/2021: Feels okay, pain controlled. Per Dr. Pruitt, she may benefit from lumbar epidural steroid injections and SNU. I discussion with patient yesterday afternoon after my initial visit and this morning; she is agreeable to SNU. She has a pain management doctor that she has been in touch with on the phone while inpatient. Informed patient and social human services assistants that as to not violate any pain management will provide information for patient to update her pain management doctor about the pharmacies used at whichever jail facility she may be accepted to. 01/30/2021: Patient seen and evaluated bedside. She denies any symptoms of fever, shortness of breath, sore throat, cough, nausea, or vomiting. She does admit to some occasional diarrhea. She is COVID-19 positive. After my informing her of her test results she now admits to having a cough for the past 4 days. She has been fully vaccinated against COVID-19. Will move patient to COVID-19 unit. Informed her that her positive result may delay her rehab placement. Discussed with RN. Seen in Covid isolation. Has a little bit of shortness of breath no hypoxia. She still is interested in SNF placement feels like her pain is well controlled today. No chest pain afebrile Vitals/I&O Vitals/I&O: Vital Signs Date Time Temp Pulse Resp B/P (MAP) Pulse Ox O2 Delivery O2 Flow Rate FiO2 01/31/21 15:02 Room Air 01/31/21 12:23 96 1.0 01/31/21 11:00 98.6 60 18 162/88 (112) 98.6 I & O 01/30/21 01/30/21 01/31/21 15:00 23:00 07:00 Output Total 300 ml Balance -300 ml Physical Exam General: Alert, Oriented X3, Cooperative, No acute distress Heart: Regular rate Lungs: Clear Abdomen: Normal bowel sounds, Soft Extremities: No cyanosis Skin: No significant lesion Assessment and Plan Assessmemt and Plan Problems Medical Problems: (1) Acute left-sided low back pain with sciatica Status: Acute (2) Intractable low back pain Status: Acute (3) Unable to ambulate Status: Acute Comment Review of Relevant I have reviewed the following items luis (where applicable) has been applied. Medications: Current Medications Medications (Trade) Dose Ordered Sig/Bennie Route PRN Reason Start Time Stop Time Status Last Admin Dose Admin Methylprednisolone (Medrol) 4 mg DAILY PO 01/31/21 09:00 01/31/21 09:01 DC 01/31/21 08:55 Justifications for Admission Other Justification intractable lumbar radiculopathy CECILIA DONIS MD Jan 31, 2021 15:36
[2021-01-31] MEDS: PATCH REMOVAL. MC SCH (21:00)
[2021-01-31] MEDS: clonazePAM 0.5 MG TABLET PO SCH (21:23)
[2021-01-31] MEDS: ZOLPIDEM 5 MG TABLET. PO PRN (21:23)
[2021-01-31] MEDS: ATORVASTATIN CALCIUM 40 MG TABLET. PO SCH (21:23)
[2021-02-01] MEDS: HYDROmorphone 2 MG TABLET PO PRN ×4 (01:13→19:42)
[2021-02-01 02:40] VITALS: BP 119/72
[2021-02-01] MEDS: clonazePAM 0.5 MG TABLET PO PRN ×2 (04:32→14:27)
[2021-02-01] MEDS: LEVOTHYROXINE 50 MCG TABLET PO SCH (06:11)
[2021-02-01 07:00] VITALS: BP 135/87
[2021-02-01] MEDS: FLUTICASONE 50MCG/NASAL SPRAY 16GM BOTTLE. NS SCH (09:00)
[2021-02-01] MEDS: MULTIVITAMIN with MINERAL TABLET. PO SCH (09:42)
[2021-02-01] MEDS: LIDOCAINE (700MG/PATCH) PATCH. TD SCH (09:42)
[2021-02-01] MEDS: BISACODYL 5 MG TABLET.DR. PO SCH (09:42)
[2021-02-01] MEDS: LISINOPRIL 20 MG TABLET PO SCH (09:43)
[2021-02-01] MEDS: PREGABALIN 75 MG CAPSULE PO SCH ×2 (09:43→21:32)
[2021-02-01] MEDS: DULoxetine HCL 20 MG CAPSULE.DR PO SCH ×2 (09:43→21:31)
[2021-02-01] MEDS: CHOLECALCIFEROL (VITAMIN D3) 1,000 UNIT TABLET PO SCH (09:44)
[2021-02-01] MEDS: CYANOCOBALAMIN (VITAMIN B-12) 1,000 MCG TABLET. PO SCH (09:44)
[2021-02-01] MEDS: CALCIUM CARB/VIT D3 500/200 TABLET. PO SCH ×2 (09:44→16:22)
[2021-02-01] MEDS: DOCUSATE SODIUM 100 MG CAPSULE. PO SCH ×2 (09:44→21:34)
[2021-02-01] MEDS: SUCRALFATE 1 GM TABLET. PO SCH ×2 (09:44→21:34)
[2021-02-01] MEDS: PANTOPRAZOLE 40 MG TABLET.DR. PO SCH (09:45)
[2021-02-01] MEDS: TAMSULOSIN 0.4 MG CAP.ER.24H. PO SCH (09:45)
[2021-02-01] MEDS: SENNOSIDES 8.6 MG TABLET PO SCH ×2 (09:45→21:32)
[2021-02-01] MEDS: HYDROcodone/APAP 10/325 1 TAB TABLET PO PRN ×3 (09:45→21:57)
[2021-02-01] MEDS: LACTOBACILLUS RHAMNOSUS GG 1 CAPSULE. PO SCH (09:45)
[2021-02-01] MEDS: VITAMIN E 200 UNIT CAPSULE. PO SCH (10:24)
[2021-02-01] MEDS: LURASIDONE 40 MG TABLET. PO SCH (10:24)
[2021-02-01 11:00] VITALS: BP 118/83
[2021-02-01] MEDS: DICLOFENAC SODIUM 1% TOPICAL GEL 100GM TUBE. TP SCH (11:27)
--- NOTE | 2021-02-01 11:32 | PDOC ---
PROGRESS NOTES Date of Service: DATE: 02/01/21 TIME: 11:30 Chief Complaint Chief Complaint impression Acute severe lumbar radiculopathy, with intractable pain // continues to require assistance for bed mobility and transfers. probable severe spinal canal stenosis at least at L4-L5. There is a large disc herniation at T12-L1 likely contributing to marked severe spinal canal and left lateral recess stenosis Morbid obesity Moderate thoracolumbar spondylosis, mri No severe spinal canal stenosis. Severe neural foraminal narrowing at L3-4 on the left. L4-L5: Disc bulge. Severe facet arthropathy. Ligamentum flavum thickening. Moderate spinal stenosis and lateral recess narrowing. Mild right and moderate left neural foraminal narrowing. positive for Covid-19,despite having vaccine HEMOCONCENTRATION Plan: IV PAIN CONTROL Neurosurgery consult iv pain control PT/OT REVIEWED MRI L/S Consult dr [facility] dvt prophylaxis IV FLUID SUPPORT 06/14 MS AT 75 CC/HR d/w RN History of Present Illness History of Present Illness Ms Hernandez is a 60 year old female w/ PMHx s/p right BKA OSTEOPOROSIS, SLIPPED DISCS, gastric bypass, smoker who who presented emergency department via EMS with complaints of pain in her left leg that radiates from her low back to her knee. she has been moving residences recently and has been doing a lot of bending./ 6 or 7 days ago she felt like she pulled a muscle. denies any numbn ess, tingling, or weakness of her lower left extremity. CT C/W probable severe spinal canal stenosis at least at L4-L5. There is a large disc herniation at T12-L1 likely contributing to marked severe spinal canal and left lateral recess stenosis. She was living in assisted living and just moved into her own apartment. Been struggling with mobility as for the last year and a half she has not had her right lower extremity prosthetic on if she is not been going to therapy anymore. admitted with Acute severe lumbar radiculopathy, with intractable pain // wearing a fentanyl pain patch with no benefit./ pain is worse with movement. 01/27/2021: Patient still with complaints of hip pain. Received left sacroiliac joint injection with some improvement. Await MRI results. She does have a prosthetic limb and admits to no longer working with physical therapy once COVID-19 hit. Over the past 2 years she has been mostly mobile with aid of a wheelchair. Discussed potential for physical therapy regardless of MRI results. Patient states that she does not want to discharge to care home, and would feel more comfortable discharging home with home health and her wheelchair. Await PT/OT recommendations barring MRI results. 01/28/2021: An MRI yesterday that showed moderate thoracolumbar spondylosis and severe neural foraminal narrowing at L3-4 on left. States her pain is improved. Will defer to neurosurgery in this regard. She does report regular fentanyl patch use 50 mcg to her lower back that she changes every 3 days over the past couple years. She is followed with pain management doctor. Regardless in her decision about surgical intervention or not, she is still refusing SNU; she prefers eventually to discharge home with home health services and outpatient PT. Currently on Medrol taper. Will obtain hemoglobin A1c. 01/29/2021: Feels okay, pain controlled. Per Dr. Morales, she may benefit from lumbar epidural steroid injections and SNU. I discussion with patient yesterday afternoon after my initial visit and this morning; she is agreeable to SNU. She has a pain management doctor that she has been in touch with on the phone while inpatient. 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 01/30/2021: Patient seen and evaluated bedside. She denies any symptoms of fever, shortness of breath, sore throat, cough, nausea, or vomiting. She does admit to some occasional diarrhea. She is COVID-19 positive. After my informing her of her test results she now admits to having a cough for the past 4 days. She has been fully vaccinated against COVID-19. Will move patient to COVID-19 unit. Informed her that her positive result may delay her rehab placement. Discussed with RN. Seen in [facility] isolation. Has a little bit of shortness of breath no hypoxia. She still is interested in SNF placement feels like her pain is well controlled today. No chest pain afebrile Vitals Vitals Vital Signs Date Time Temp Pulse Resp B/P (MAP) Pulse Ox O2 Delivery O2 Flow Rate FiO2 02/01/21 11:00 98.0 62 118/83 (95) 93 Room Air 98.0 02/01/21 10:15 18 01/31/21 12:23 1.0 Physical Exam General: Alert, Oriented X3, Cooperative, No acute distress Heart: Regular rate, Normal S1 Lungs: Clear Abdomen: Normal bowel sounds, Soft Extremities: No cyanosis Skin: No significant lesion Labs LABS PATIENT: COOPER HERNANDEZ ACCOUNT: [id number] : 1960 LOCATION: [address] [place] [address] AGE: 60 SEX: F EXAM STATUS: ADM IN ORD. PHYSICIAN: ESAU MORALES MD REASON: thoracic stenosis PROCEDURE: THORACIC SPINE WO CONTRAST MR LUMBAR SPINE WO -[id number], MRI THORACIC SPINE WO Date: 01/27/2021 11:26 AM Indication: thoracic stenosis, lumbar stenosis Comparison: CT 01/25/2021. Technique: Multi-planar multi-weighted magnetic resonance imaging of the thoracic and lumbar spine was performed without intravenous contrast using the standard lumbar spine protocol. FINDINGS: The thoracic spine is normally aligned. Trace anterolisthesis at L4-5. No acute fracture. Moderate multilevel degenerative disc desiccation and disc height loss. Fatty degenerative endplate changes at T12-L1. The conus terminates at a normal level. No abnormal signal is seen within the visualized spinal cord. No clumping of intrathecal nerve roots. Right renal atrophy. Thoracic: Multilevel small disc bulges. Moderate spinal canal stenosis at T8-9 and T10-11, mild at Mild spinal canal stenosis at C5-6 and T9-10. T12-L1: Left paracentral protrusion. Mild spinal canal stenosis. Mild left neural foraminal narrowing. L1-L2: Disc bulge. Mild facet arthropathy. No significant spinal stenosis. Mild bilateral neural foraminal narrowing. L2-L3: Disc bulge. Mild facet arthropathy. No significant spinal stenosis. Mild right and moderate left neural foraminal narrowing. L3-L4: Disc bulge. Moderate facet arthropathy. Mild spinal stenosis. Mild right and severe left neural foraminal narrowing. L4-L5: Disc bulge. Severe facet arthropathy. Ligamentum flavum thickening. Moderate spinal stenosis and lateral recess narrowing. Mild right and moderate left neural foraminal narrowing. L5-S1: Disc bulge. Mild facet arthropathy. No significant spinal stenosis or neural foraminal narrowing. IMPRESSION: Moderate thoracolumbar spondylosis, detailed above. No severe spinal canal stenosis. Severe neural foraminal narrowing at L3-4 on the left. Electronically signed by: Pedro Robbins MD (01/27/2021 4:46 PM) [facility] DICTATED and SIGNED BY: PEDRO ROBBINS MD DATE: 01/27/21 [id number] Assessment and Plan Assessmemt and Plan Problems Medical Problems: (1) Acute left-sided low back pain with sciatica Status: Acute (2) Intractable low back pain Status: Acute (3) Unable to ambulate Status: Acute Comment Review of Relevant I have reviewed the following items luis (where applicable) has been applied. Labs Microbiology 01/26/21 Urine Culture - Final, Complete 01/26/21 Antimicrobic Susceptibility - Final, Complete Medications Current Medications Dexamethasone Sodium Phosphate (Decadron) 10 mg 1X ONCE IM Last administered on 01/25/21at 22:25; Start 01/25/21 at 22:30; Stop 01/25/21 at 22:31; Status DC Orphenadrine Citrate (Norflex) 60 mg 1X ONCE IM Last administered on 01/25/21at 22:23; Start 01/25/21 at 22:30; Stop 01/25/21 at 22:31; Status DC Clonidine HCl (Catapres) 0.1 mg 1X ONCE PO Last administered on 01/25/21at 23:05; Start 01/25/21 at 23:00; Stop 01/25/21 at 23:01; Status DC Acetaminophen/ Hydrocodone Bitart (Lortab 5/325) 1 tab 1X ONCE PO Last administered on 01/26/21at 01:26; Start 01/26/21 at 01:30; Stop 01/26/21 at 01:31; Status DC Clonazepam (KlonoPIN) 2 mg 1X ONCE PO Last administered on 01/26/21at 01:29; Start 01/26/21 at 01:30; Stop 01/26/21 at 01:31; Status DC Acetaminophen/ Hydrocodone Bitart (Lortab 5/325) 1 tab 1X ONCE PO Last administered on 01/26/21at 04:54; Start 01/26/21 at 05:00; Stop 01/26/21 at 05:01; Status DC Clonazepam (KlonoPIN) 2 mg 1X PRN PRN PO ANXIETY / AGITATION Last administered on 01/26/21at 09:13; Start 01/26/21 at 06:15; Stop 01/26/21 at 10:00; Status DC Hydromorphone HCl (Dilaudid) 0.4 mg PRN Q4HRS PRN IVP MODERATE TO SEVERE PAIN Last administered on 01/28/21at 06:15; Start 01/26/21 at 10:00; Stop 01/28/21 at 15:23; Status DC Methylprednisolone Acetate (DEPO-Medrol 40MG VIAL) 40 mg 1X ONCE IM ; Start 01/26/21 at 15:00; Stop 01/26/21 at 15:01; Status DC Bupivacaine HCl (Sensorcaine-Mpf 0.25%) 10 ml 1X ONCE IJ ; Start 01/26/21 at 15:00; Stop 01/26/21 at 15:01; Status DC Acetaminophen/ Hydrocodone Bitart (Lortab 10/325) 1 tab PRN Q6HRS PRN PO MOD TO SEVERE PAIN, 1ST CHOICE Last administered on 02/01/21at 09:45; Start 01/26/21 at 14:30 Lidocaine (Lidoderm) 1 patch DAILY TD Last administered on 02/01/21at 09:42; Start 01/26/21 at 14:00 Miscellaneous (Lidoderm Patch Removal) 1 ea QHS MC Last administered on 01/31/21at 21:00; Start 01/26/21 at 21:00 Tizanidine HCl (Zanaflex) 4 mg PRN Q8HRS PRN PO MUSCLE SPASMS Last administered on 01/31/21at 06:40; Start 01/26/21 at 14:30 Methylprednisolone (Medrol) 8 mg BID PO Last administered on 01/26/21at 21:36; Start 01/26/21 at 15:00; Stop 01/26/21 at 21:01; Status DC Methylprednisolone (Medrol) 4 mg BID@1700,1900 PO ; Start 01/26/21 at 17:00; Stop 01/26/21 at 19:01; Status DC Methylprednisolone (Medrol) 4 mg TIDPC PO Last administered on 01/27/21at 17:35; Start 01/27/21 at 08:30; Stop 01/27/21 at 17:31; Status DC Methylprednisolone (Medrol) 8 mg QHS PO Last administered on 01/27/21at 20:35; Start 01/27/21 at 21:00; Stop 01/27/21 at 21:01; Status DC Methylprednisolone (Medrol) 4 mg QIDAFTMEAL PO Last administered on 01/28/21at 20:05; Start 01/28/21 at 09:00; Stop 01/28/21 at 21:01; Status DC Methylprednisolone (Medrol) 4 mg TID PO Last administered on 01/29/21at 20:49; Start 01/29/21 at 09:00; Stop 01/29/21 at 21:01; Status DC Methylprednisolone (Medrol) 4 mg BID PO Last administered on 01/30/21at 20:31; Start 01/30/21 at 09:00; Stop 01/30/21 at 21:01; Status DC Methylprednisolone (Medrol) 4 mg DAILY PO Last administered on 01/31/21at 08:55; Start 01/31/21 at 09:00; Stop 01/31/21 at 09:01; Status DC Pantoprazole Sodium (Protonix) 40 mg DAILYAC PO Last administered on 01/26/21at 19:53; Start 01/26/21 at 16:30; Stop 01/26/21 at 21:02; Status DC Sodium Chloride (Normal Saline Flush) 3 ml QSHIFT PRN IV AFTER MEDS AND BLOOD DRAWS; Start 01/26/21 at 14:45 Sodium Chloride 1,000 ml @ 75 mls/hr [id number] IV Last administered on 01/28/21at 06:20; Start 01/26/21 at 14:45; Stop 01/28/21 at 16:25; Status DC Ondansetron HCl (Zofran) 4 mg PRN Q4HRS PRN IV NAUSEA/VOMITING; Start 01/26/21 at 14:45 Acetaminophen (Tylenol) 650 mg PRN Q4HRS PRN PO TEMP OVER 100.4F OR MILD PAIN Last administered on 01/27/21at 05:42; Start 01/26/21 at 14:45 Acetaminophen (Tylenol Supp) 650 mg PRN Q4HRS PRN [place] TEMP OVER 100.4F OR MILD PAIN; Start 01/26/21 at 14:45 Al Hydroxide/Mg Hydroxide (Mylanta Plus Xs) 30 ml PRN DAILY PRN PO HEARTBURN / GAS; Start 01/26/21 at 14:45 Clonidine HCl (Catapres) 0.1 mg PRN Q6HRS PRN PO SBP>160 OR DBP>90 Last administered on 01/29/21at 08:33; Start 01/26/21 at 14:45 Sodium Monofluorophosphate (Fleet Adult) 133 ml PRN DAILY PRN [place] CONSTIPATION,2nd RECTAL CHOICE; Start 01/26/21 at 14:45 Docusate Sodium (Colace) 100 mg PRN BID PRN PO HARD STOOLS; Start 01/26/21 at 14:45 Albuterol Sulfate (Ventolin Neb Soln) 2.5 mg PRN Q4HRS PRN NEB SHORTNESS OF BREATH; Start 01/26/21 at 14:45 Guaifenesin (Robitussin) 200 mg PRN Q4HRS PRN PO COUGH; Start 01/26/21 at 14:45 Lorazepam (Ativan) 0.5 mg PRN Q4HRS PRN PO ANXIETY / AGITATION,2nd CHOICE Last administered on 01/31/21at 13:58; Start 01/26/21 at 14:45 Hydromorphone HCl (Dilaudid) 0.5 mg PRN Q2HRS PRN IV SEVERE PAIN 7-10 Last ad ministered on 01/28/21at 15:14; Start 01/26/21 at 14:45; Stop 01/28/21 at 15:23; Status DC Enoxaparin Sodium (Lovenox 40mg Syringe) 40 mg Q24H SQ Last administered on 01/30/21at 20:31; Start 01/26/21 at 16:00 Atorvastatin Calcium (Lipitor) 40 mg HS PO Last administered on 01/31/21at 21:23; Start 01/26/21 at 21:00 Duloxetine HCl (Cymbalta) 20 mg BID PO Last administered on 02/01/21at 09:43; Start 01/26/21 at 21:00 Fluticasone Propionate (Flonase) 1 spray DAILY NS Last administered on 01/31/21at 08:59; Start 01/27/21 at 09:00 Levothyroxine Sodium (Synthroid) 50 mcg DAILY07 PO Last administered on 02/01/21 06:11; Start 01/27/21 at 07:00 Lisinopril (Prinivil) 20 mg DAILY PO Last administered on 02/01/21 09:43; Start 01/27/21 at 09:00 Pregabalin (Lyrica) 75 mg BID PO Last administered on 02/01/21 09:43; Start 01/26/21 at 21:00 Sennosides (Senna) 17.2 mg BID PO Last administered on 02/01/21 09:45; Start 01/26/21 at 21:00 Sucralfate (Carafate) 1 gm BID PO Last administered on 02/01/21 09:44; Start 01/26/21 at 21:00 Tamsulosin HCl (Flomax) 0.4 mg DAILY PO Last administered on 02/01/21 09:45; Start 01/27/21 at 09:00 Zolpidem Tartrate (Ambien) 5 mg PRN QHS PRN PO INSOMNIA Last administered on 01/31/21 21:23; Start 01/26/21 at 20:45 Lactobacillus Rhamnosus (Culturelle) 1 cap DAILY PO Last administered on 02/01/21 09:45; Start 01/27/21 at 09:00 Calcium/Vitamin D (Oscal D 500mg/ 200uts) 1 tab BIDWMEALS PO Last administered on 02/01/21 09:44; Start 01/27/21 at 08:00 Clonazepam (KlonoPIN) 1 mg PRN TID PRN PO ANXIETY / AGITATION,1st CHOICE Last administered on 02/01/21at 04:32; Start 01/26/21 at 21:00 Clonazepam (KlonoPIN) 2 mg HS PO Last administered on 01/31/21 21:23; Start 01/26/21 at 21:00 Docusate Sodium (Colace) 100 mg BID PO Last administered on 02/01/21 09:44; Start 01/26/21 at 21:00 Non-Formulary Medication (Lactobacillus Rhamnosus Gg (Culturelle)) 1 cap DAILY PO ; Start 01/27/21 at 09:00; Stop 01/26/21 at 20:58; Status DC Lurasidone HCl (Latuda) 60 mg DAILYWBKFT PO Last administered on 02/01/21 10:24; Start 01/27/21 at 08:00 Multivitamins (Thera M Plus) 1 tab DAILY PO Last administered on 02/01/21 09:42; Start 01/27/21 at 09:00 Non-Formulary Medication (Naloxegol Oxalate (Movantik)) 25 mg DAILY PO ; Start 01/27/21 at 09:00; Stop 01/27/21 at 16:13; Status DC Pantoprazole Sodium (Protonix) 40 mg DAILYAC PO Last administered on 02/01/21 09:45; Start 01/27/21 at 07:30 Vitamin E (Vitamin E) 200 unit DAILY PO Last administered on 02/01/21 10:24; Start 01/27/21 at 09:00 Non-Formulary Medication ([cranber] ) 450 mg DAILY PRN PO urinary; Start 01/26/21 at 20:45; Stop 01/26/21 at 20:57; Status DC Cyanocobalamin (Vitamin B-12) 500 mcg DAILY PO Last administered on 02/01/21 09:44; Start 01/27/21 at 09:00 Vitamin D (Vitamin D3) 1,000 unit DAILY PO Last administered on 02/01/21 09:44; Start 01/27/21 at 09:00 Fentanyl (Duragesic 50mcg/ Hr Patch) 1 patch Q72H TD Last administered on 01/31/21 12:23; Start 01/28/21 at 12:00 Diclofenac Sodium (Voltaren) 1 catia DAILY TP Last administered on 02/01/21 11 :27; Start 01/28/21 at 12:00 Hydromorphone HCl (Dilaudid) 1 mg PRN Q4HRS PRN PO MOD TO SEV PAIN, 2ND CHOICE Last administered on 02/01/21 06:47; Start 01/28/21 at 15:30 Hydralazine HCl (Apresoline Inj) 10 mg PRN Q4HRS PRN IVP ELEVATED BP, SEE COMMENTS Last administered on 01/28/21 23:17; Start 01/28/21 at 23:15 Magnesium Citrate (Citroma) 296 ml PRN 1X PRN PO CONSTIPATION Last administered on 8/19/21at 12:18; Start 01/29/21 at 09:15 Bisacodyl (Dulcolax Supp) 10 mg PRN DAILY PRN [place] CONSTIPATION,1st RECTAL CHOICE Last administered on 01/29/21at 12:19; Start 01/29/21 at 09:15 Bisacodyl (Dulcolax Tab) 10 mg DAILY PO Last administered on 02/01/21at 09:42; Start 01/29/21 at 09:15 Guaifenesin (Robitussin Dm) 10 ml PRN Q6HRS PRN PO COUGH- 2ND CHOICE; Start at 10:15 Ceftriaxone Sodium (Rocephin) 1 gm Q24H IVP Last administered on 01/31/21at 13:59; Start 01/30/21 at 14:00; Stop 02/01/21 at 14:01 Active Scripts Active Medrol (Methylprednisolone) 4 Mg Tab.ds.pk 1 Pkg PO UD 6 Days Reported Zolpidem Tartrate 5 Mg Tablet 10 Mg PO QHS PRN Vitamin E (Vitamin E Mixed) 400 Unit Tablet 200 Unit PO DAILY [vitamin D] 1,000 Intlu PO DAILY [vitamin] [vitamin b12] 500 Mcg PO DAILY Flomax (Tamsulosin Hcl) 0.4 Mg Cap.er.24h 0.4 Mg PO DAILY Sucralfate 1 Gm Tablet 1 Gm PO BID Senna Laxative (Sennosides) 8.6 Mg Tablet 2 Tab PO BID 30 Days Trang-Bid Caplet (Acidoph/L.bulg/Bif.b/S.thermop) 1 Each Tablet 1 Each PO DAILY Lyrica (Pregabalin) 75 Mg Capsule 75 Mg PO BID Omeprazole 20 Mg Capsule.dr 20 Mg PO DAILY One-Daily Multi-Vitamin (Multivitamin) 1 Each Tablet 1 Tab PO DAILY 30 Days Movantik (Naloxegol Oxalate) 25 Mg Tablet 25 Mg PO DAILY Lisinopril 20 Mg Tablet 1 Tab PO DAILY Levothyroxine Sodium 50 Mcg Tablet 1 Tab PO DAILY Latuda (Lurasidone Hcl) 60 Mg Tablet 60 Mg PO DAILY Culturelle (Lactobacillus Rhamnosus Gg) 1 Each Capsule 1 Cap PO DAILY 30 Days Cymbalta (Duloxetine Hcl) 20 Mg Capsule.dr 20 Mg PO BID Colace Clear (Docusate Sodium) 50 Mg Capsule 1 Cap PO BID 30 Days [cranber] 450 Mg PO DAILY PRN Fluticasone Propionate Nasal [place] (Fluticasone Propionate) [address]susp [address] [place] DAILY FENTANYL 50mcg/hr (Fentanyl) 1 Each Patch.td72 1 Patch TD Q72H Clonazepam 2 Mg Tablet 2 Mg PO HS Clonazepam 1 Mg Tablet 1 Mg PO TID Calcium 600 + Vit D3 Caplet (Calcium Carbonate/Vitamin D3) 1 Each Tablet 1 Tab PO BID 30 Days Atorvastatin Calcium 40 Mg Tablet 40 Mg PO HS Vitals/I & O Vital Sign - Last 24 Hours 01/31/21 01/31/21 01/31/21 01/31/21 12:23 12:23 13:58 15:00 Temp 98.1 98.1 Pulse 69 Resp 18 B/P (MAP) 188/95 (126) Pulse Ox 96 94 O2 Delivery Room Air Room Air Room Air O2 Flow Rate 1.0 01/31/21 01/31/21 01/31/21 01/31/21 15:02 15:48 16:46 17:37 Pulse 96 B/P (MAP) 108/87 (94) O2 Delivery Room Air Room Air Room Air 01/31/21 01/31/21 01/31/21 01/31/21 17:37 20:15 20:30 21:24 Temp 97.5 97.5 Pulse 80 Resp 18 20 B/P (MAP) 119/77 (91) Pulse Ox 100 O2 Delivery Room Air Room Air Room Air Room Air 01/31/21 01/31/21 02/01/21 02/01/21 21:54 23:00 01:13 01:43 Temp 97.9 97.9 Pulse 75 Resp 20 18 18 18 B/P (MAP) 116/78 (91) Pulse Ox 97 O2 Delivery Room Air Room Air Room Air Room Air 02/01/21 02/01/21 02/01/21 02/01/21 02:40 06:47 07:00 07:17 Temp 97.5 97.8 97.5 97.8 Pulse 62 63 Resp 18 18 16 18 B/P (MAP) 119/72 (88) 135/87 (103) Pulse Ox 94 94 O2 Delivery Room Air Room Air Room Air Room Air 02/01/21 02/01/21 02/01/21 02/01/21 08:41 09:43 09:45 10:15 Pulse 63 Resp 18 18 B/P (MAP) 135/87 Pulse Ox 96 O2 Delivery Room Air Room Air Room Air 02/01/21 11:00 Temp 98.0 98.0 Pulse 62 B/P (MAP) 118/83 (95) Pulse Ox 93 O2 Delivery Room Air Intake and Output 01/31/21 01/31/21 02/01/21 15:00 23:00 07:00 Intake Total 360 ml Output Total 300 ml Balance 60 ml Justicifation of Admission Dx: Justifications for Admission: Justification of Admission Dx: Yes Comments: intractable lumbar radiculopathy ÁNGEL MARKS MD Feb 01, 2021 11:32
[2021-02-01 12:40] LABS: BASO # 0.1 x10^3/uL (0.0-0.2); BASO % 1 % (0-3); EOS # 0.1 x10^3/uL (0.0-0.7); EOS % 1 % (0-3); HEMATOCRIT 54.1 % (36.0-47.0); HEMOGLOBIN 17.8 g/dL (12.0-15.5); LYMPH % 28 % (24-48); MEAN CORPUSCULAR HEMOGLOBIN 30 pg (25-35); MEAN CORPUSCULAR HGB CONC 33 g/dL (31-37); MEAN CORPUSCULAR VOLUME 90 fL (79-100); MONO # 1.2 x10^3/uL (0.0-1.1); MONO % 12 % (0-9); NEUT # 6.2 x10^3/uL (1.8-7.7); NEUT % 59 % (31-73); PLATELET COUNT 215 x10^3/uL (140-400); RED CELL DISTRIBUTION WIDTH 14.1 % (11.5-14.5); WHITE BLOOD COUNT 10.6 x10^3/uL (4.0-11.0)
[2021-02-01 13:12] LABS: CALCIUM 9.5 mg/dL (8.5-10.1); CREATININE 0.8 mg/dL (0.6-1.0); GFR 72.7; POTASSIUM 4.5 mmol/L (3.5-5.1)
[2021-02-01] MEDS: IV 1/2 NORMAL SALINE 1,000 ML IV SCH (14:27)
[2021-02-01] MEDS: cefTRIAXone IV Push 1 GM VIAL. IVP SCH (14:28)
[2021-02-01 15:26] VITALS: BP 115/83
[2021-02-01] MEDS: ENOXAPARIN 40 MG/0.4 ML SYRINGE. SQ SCH (16:22)
[2021-02-01 19:00] VITALS: BP 112/75
[2021-02-01] MEDS: clonazePAM 0.5 MG TABLET PO SCH (21:31)
[2021-02-01] MEDS: ZOLPIDEM 5 MG TABLET. PO PRN (21:34)
[2021-02-01] MEDS: ATORVASTATIN CALCIUM 40 MG TABLET. PO SCH (21:34)
[2021-02-01] MEDS: PATCH REMOVAL. MC SCH (21:35)
[2021-02-01 23:14] VITALS: BP 130/81
[2021-02-02 03:08] VITALS: BP 133/87
[2021-02-02] MEDS: HYDROcodone/APAP 10/325 1 TAB TABLET PO PRN ×2 (04:38→21:13)
[2021-02-02 07:00] VITALS: BP 128/92
[2021-02-02] MEDS: FLUTICASONE 50MCG/NASAL SPRAY 16GM BOTTLE. NS SCH (09:00)
--- NOTE | 2021-02-02 09:30 | PDOC ---
[facility] [facility] PROGRESS NOTE Date of Service DOS: DATE: 02/02/21 TIME: 09:27 Chief Complaint Chief Complaint impression Acute severe lumbar radiculopathy, with intractable pain // continues to require assistance for bed mobility and transfers. probable severe spinal canal stenosis at least at L4-L5. There is a large disc herniation at T12-L1 likely contributing to marked severe spinal canal and left lateral recess stenosis Morbid obesity Moderate thoracolumbar spondylosis, mri No severe spinal canal stenosis. Severe neural foraminal narrowing at L3-4 on the left. L4-L5: Disc bulge. Severe facet arthropathy. Ligamentum flavum thickening. Moderate spinal stenosis and lateral recess narrowing. Mild right and moderate left neural foraminal narrowing. positive for Covid-19,despite having vaccine HEMOCONCENTRATION Plan: IV PAIN CONTROL Neurosurgery consult --> outpatient follow-up at this point iv pain control PT/OT REVIEWED MRI L/S Consult dr sue saez dvt prophylaxis IV FLUID SUPPORT 06/14 MS AT 75 CC/HR d/w RN History of Present Illness History of Present Illness Ms Oliva is a 60 year old female w/ PMHx s/p right BKA OSTEOPOROSIS, SLIPPED DISCS, gastric bypass, smoker who who presented emergency department via EMS with complaints of pain in her left leg that radiates from her low back to her knee. she has been moving residences recently and has been doing a lot of bending./ 6 or 7 days ago she felt like she pulled a muscle. denies any numbness, tingling, or weakness of her lower left extremity. CT C/W probable severe spinal canal stenosis at least at L4-L5. There is a large disc herniation at T12-L1 likely contributing to marked severe spinal canal and left lateral recess stenosis. She was living in assisted living and just moved into her own apartment. Been struggling with mobility as for the last year and a half she has not had her right lower extremity prosthetic on if she is not been going to therapy anymore. admitted with Acute severe lumbar radiculopathy, with intractable pain // wearing a fentanyl pain patch with no benefit./ pain is worse with movement. 01/27/2021: Patient still with complaints of hip pain. Received left sacroiliac joint injection with some improvement. Await MRI results. She does have a prosthetic limb and admits to no longer working with physical therapy once COVID-19 hit. Over the past 2 years she has been mostly mobile with aid of a wheelchair. Discussed potential for physical therapy regardless of MRI results. Patient states that she does not want to discharge to jail, and would feel more comfortable discharging home with home health and her wheelchair. Await PT/OT recommendations barring MRI results. 01/28/2021: An MRI yesterday that showed moderate thoracolumbar spondylosis and severe neural foraminal narrowing at L3-4 on left. States her pain is improved. Will defer to neurosurgery in this regard. She does report regular fentanyl patch use 50 mcg to her lower back that she changes every 3 days over the past couple years. She is followed with pain management doctor. Regardless in her decision about surgical intervention or not, she is still refusing SNU; she prefers eventually to discharge home with home health services and outpatient PT. Currently on Medrol taper. Will obtain hemoglobin A1c. 01/29/2021: Feels okay, pain controlled. Per Dr. Puritt, she may benefit from lumbar epidural steroid injections and SNU. I discussion with patient yesterday afternoon after my initial visit and this morning; she is agreeable to SNU. She has a pain management doctor that she has been in touch with on the phone while inpatient. Informed patient and clinical social work therapist that as to not violate any pain management will provide information for patient to update her pain management doctor about the pharmacies used at whichever jail facility she may be accepted to. 01/30/2021: Patient seen and evaluated bedside. She denies any symptoms of fever, shortness of breath, sore throat, cough, nausea, or vomiting. She does admit to some occasional diarrhea. She is COVID-19 positive. After my informing her of her test results she now admits to having a cough for the past 4 days. She has been fully vaccinated against COVID-19. Will move patient to COVID-19 unit. Informed her that her positive result may delay her rehab p lacement. Discussed with RN. Seen in Covid isolation. Has a little bit of shortness of breath no hypoxia. She still is interested in SNF placement feels like her pain is well controlled today. No chest pain afebrile 02/02/21 Patient seen and examined at bedside, maintain fluid isolation. Patient is morning concerned she is not getting her pain medicine appropriately. She says that she takes it more frequently at home thus will increase frequency. Otherwise no major complaints. Patient reports to me that she does not feel ready for discharge. Plan of care discussed with bedside RN. Vitals/I&O Vitals/I&O: Vital Signs Date Time Temp Pulse Resp B/P (MAP) Pulse Ox O2 Delivery O2 Flow Rate FiO2 02/02/21 07:00 98.3 74 20 128/92 (104) 93 Room Air 98.3 I & O 02/01/21 02/01/21 02/02/21 15:00 23:00 07:00 Intake Total 250 ml Output Total 1800 ml 600 ml Balance -1800 ml -350 ml Physical Exam General: Alert, Oriented X3, Cooperative, moderate distress Heart: Regular rate, Normal S1 Lungs: Clear Abdomen: Normal bowel sounds, Soft Extremities: No cyanosis Skin: No significant lesion Labs Labs: Laboratory Tests Test 02/01/21 12:30 White Blood Count 10.6 x10^3/uL (4.0-11.0) Red Blood Count 6.00 x10^6/uL (3.50-5.40) Hemoglobin 17.8 g/dL (12.0-15.5) Hematocrit 54.1 % (36.0-47.0) Mean Corpuscular Volume 90 fL (79-100) Mean Corpuscular Hemoglobin 30 pg (25-35) Mean Corpuscular Hemoglobin Concent 33 g/dL (31-37) Red Cell Distribution Width 14.1 % (11.5-14.5) Platelet Count 215 x10^3/uL (140-400) Neutrophils (%) (Auto) 59 % (31-73) Lymphocytes (%) (Auto) 28 % (24-48) Monocytes (%) (Auto) 12 % (0-9) Eosinophils (%) (Auto) 1 % (0-3) Basophils (%) (Auto) 1 % (0-3) Neutrophils # (Auto) 6.2 x10^3/uL (1.8-7.7) Lymphocytes # (Auto) 3.0 x10^3/uL (1.0-4.8) Monocytes # (Auto) 1.2 x10^3/uL (0.0-1.1) Eosinophils # (Auto) 0.1 x10^3/uL (0.0-0.7) Basophils # (Auto) 0.1 x10^3/uL (0.0-0.2) Sodium Level 136 mmol/L (136-145) Potassium Level 4.5 mmol/L (3.5-5.1) Chloride Level 102 mmol/L (98-107) Carbon Dioxide Level 21 mmol/L (21-32) Anion Gap 13 (6-14) Blood Urea Nitrogen 19 mg/dL (7-20) Creatinine 0.8 mg/dL (0.6-1.0) Estimated GFR (Cockcroft-Gault) 72.7 Glucose Level 95 mg/dL (70-99) Calcium Level 9.5 mg/dL (8.5-10.1) Review of Systems Review of Systems: Endorsing generalized fatigue and pain. Otherwise no complaints Assessment and Plan Assessmemt and Plan Problems Medical Problems: (1) Acute left-sided low back pain with sciatica Status: Acute (2) Intractable low back pain Status: Acute (3) Unable to ambulate Status: Acute Comment Review of Relevant I have reviewed the following items luis (where applicable) has been applied. Medications: Current Medications Medications (Trade) Dose Ordered Sig/Bennie Route PRN Reason Start Time Stop Time Status Last Admin Dose Admin Sodium Chloride 1,000 ml @ 75 mls/hr [id number] IV 02/01/21 13:15 02/01/21 14:27 Justifications for Admission Other Justification intractable lumbar radiculopathy CECILIA LEMON MD Feb 02, 2021 09:30
[2021-02-02] MEDS: DICLOFENAC SODIUM 1% TOPICAL GEL 100GM TUBE. TP SCH (10:04)
[2021-02-02] MEDS: DULoxetine HCL 20 MG CAPSULE.DR PO SCH ×2 (10:04→20:18)
[2021-02-02] MEDS: CYANOCOBALAMIN (VITAMIN B-12) 1,000 MCG TABLET. PO SCH (10:04)
[2021-02-02] MEDS: BISACODYL 5 MG TABLET.DR. PO SCH (10:05)
[2021-02-02] MEDS: VITAMIN E 200 UNIT CAPSULE. PO SCH (10:05)
[2021-02-02] MEDS: SENNOSIDES 8.6 MG TABLET PO SCH ×2 (10:05→20:18)
[2021-02-02] MEDS: LACTOBACILLUS RHAMNOSUS GG 1 CAPSULE. PO SCH (10:05)
[2021-02-02] MEDS: LURASIDONE 40 MG TABLET. PO SCH (10:05)
[2021-02-02] MEDS: CHOLECALCIFEROL (VITAMIN D3) 1,000 UNIT TABLET PO SCH (10:05)
[2021-02-02] MEDS: PREGABALIN 75 MG CAPSULE PO SCH ×2 (10:06→20:19)
[2021-02-02] MEDS: TAMSULOSIN 0.4 MG CAP.ER.24H. PO SCH (10:06)
[2021-02-02] MEDS: LEVOTHYROXINE 50 MCG TABLET PO SCH (10:06)
[2021-02-02] MEDS: SUCRALFATE 1 GM TABLET. PO SCH ×2 (10:06→20:19)
[2021-02-02] MEDS: MULTIVITAMIN with MINERAL TABLET. PO SCH (10:06)
[2021-02-02] MEDS: CALCIUM CARB/VIT D3 500/200 TABLET. PO SCH ×2 (10:06→16:20)
[2021-02-02] MEDS: PANTOPRAZOLE 40 MG TABLET.DR. PO SCH (10:06)
[2021-02-02] MEDS: LISINOPRIL 20 MG TABLET PO SCH (10:07)
[2021-02-02] MEDS: DOCUSATE SODIUM 100 MG CAPSULE. PO SCH ×2 (10:07→20:18)
[2021-02-02] MEDS: LIDOCAINE (700MG/PATCH) PATCH. TD SCH (10:08)
[2021-02-02] MEDS: clonazePAM 0.5 MG TABLET PO SCH ×3 (10:10→20:24)
[2021-02-02] MEDS: HYDROmorphone 2 MG TABLET PO PRN ×3 (10:18→19:46)
[2021-02-02 11:03] VITALS: BP 136/95
[2021-02-02] MEDS: IV 1/2 NORMAL SALINE 1,000 ML IV SCH ×3 (12:23→19:46)
--- NOTE | 2021-02-02 12:46 | PDOC ---
PROGRESS NOTES Date of Service DATE: 02/02/21 TIME: 12:44 Subjective Subjective She continues with left lower extremity pain. Objective Objective Vital Signs Date Time Temp Pulse Resp B/P (MAP) Pulse Ox O2 Delivery O2 Flow Rate FiO2 02/02/21 11:37 Room Air 02/02/21 11:03 97.4 80 20 136/95 (109) 99 97.4 01/31/21 12:23 1.0 Intake and Output 02/02/21 07:00 Intake Total 250 ml Output Total 2400 ml Balance -2150 ml Intake Oral 250 ml Output Urine Total 2400 ml Physical Exam Physical Exam She continues to require assistance with bed mobility and she did not get up yesterday with therapy. Assessment Assessment Problems Medical Problems: (1) Acute left-sided low back pain with sciatica Status: Acute (2) Intractable low back pain Status: Acute (3) Unable to ambulate Status: Acute Plan Plan of Care To encourage her to work with therapy. Comment Review of Relevant I have reviewed the following items luis (where applicable) has been applied. Labs Laboratory Tests Test 02/01/21 12:30 White Blood Count 10.6 x10^3/uL (4.0-11.0) Red Blood Count 6.00 x10^6/uL (3.50-5.40) Hemoglobin 17.8 g/dL (12.0-15.5) Hematocrit 54.1 % (36.0-47.0) Mean Corpuscular Volume 90 fL (79-100) Mean Corpuscular Hemoglobin 30 pg (25-35) Mean Corpuscular Hemoglobin Concent 33 g/dL (31-37) Red Cell Distribution Width 14.1 % (11.5-14.5) Platelet Count 215 x10^3/uL (140-400) Neutrophils (%) (Auto) 59 % (31-73) Lymphocytes (%) (Auto) 28 % (24-48) Monocytes (%) (Auto) 12 % (0-9) Eosinophils (%) (Auto) 1 % (0-3) Basophils (%) (Auto) 1 % (0-3) Neutrophils # (Auto) 6.2 x10^3/uL (1.8-7.7) Lymphocytes # (Auto) 3.0 x10^3/uL (1.0-4.8) Monocytes # (Auto) 1.2 x10^3/uL (0.0-1.1) Eosinophils # (Auto) 0.1 x10^3/uL (0.0-0.7) Basophils # (Auto) 0.1 x10^3/uL (0.0-0.2) Sodium Level 136 mmol/L (136-145) Potassium Level 4.5 mmol/L (3.5-5.1) Chloride Level 102 mmol/L (98-107) Carbon Dioxide Level 21 mmol/L (21-32) Anion Gap 13 (6-14) Blood Urea Nitrogen 19 mg/dL (7-20) Creatinine 0.8 mg/dL (0.6-1.0) Estimated GFR (Cockcroft-Gault) 72.7 Glucose Level 95 mg/dL (70-99) Calcium Level 9.5 mg/dL (8.5-10.1) Microbiology 01/26/21 Urine Culture - Final, Complete 01/26/21 Antimicrobic Susceptibility - Final, Complete Medications Current Medications Dexamethasone Sodium Phosphate (Decadron) 10 mg 1X ONCE IM Last administered on 01/25/21at 22:25; Start 01/25/21 at 22:30; Stop 01/25/21 at 22:31; Status DC Orphenadrine Citrate (Norflex) 60 mg 1X ONCE IM Last administered on 01/25/21at 22:23; Start 01/25/21 at 22:30; Stop 01/25/21 at 22:31; Status DC Clonidine HCl (Catapres) 0.1 mg 1X ONCE PO Last administered on 01/25/21at 23:05; Start 01/25/21 at 23:00; Stop 01/25/21 at 23:01; Status DC Acetaminophen/ Hydrocodone Bitart (Lortab 5/325) 1 tab 1X ONCE PO Last administered on 01/26/21at 01:26; Start 01/26/21 at 01:30; Stop 01/26/21 at 01:31; Status DC Clonazepam (KlonoPIN) 2 mg 1X ONCE PO Last administered on 01/26/21at 01:29; Start 01/26/21 at 01:30; Stop 01/26/21 at 01:31; Status DC Acetaminophen/ Hydrocodone Bitart (Lortab 5/325) 1 tab 1X ONCE PO Last administered on 01/26/21at 04:54; Start 01/26/21 at 05:00; Stop 01/26/21 at 05:01; Status DC Clonazepam (KlonoPIN) 2 mg 1X PRN PRN PO ANXIETY / AGITATION Last administered on 01/26/21at 09:13; Start 01/26/21 at 06:15; Stop 01/26/21 at 10:00; Status DC Hydromorphone HCl (Dilaudid) 0.4 mg PRN Q4HRS PRN IVP MODERATE TO SEVERE PAIN Last administered on 01/28/21at 06:15; Start 01/26/21 at 10:00; Stop 01/28/21 at 15:23; Status DC Methylprednisolone Acetate (DEPO-Medrol 40MG VIAL) 40 mg 1X ONCE IM ; Start 01/26/21 at 15:00; Stop 01/26/21 at 15:01; Status DC Bupivacaine HCl (Sensorcaine-Mpf 0.25%) 10 ml 1X ONCE IJ ; Start 01/26/21 at 15:00; Stop 01/26/21 at 15:01; Status DC Acetaminophen/ Hydrocodone Bitart (Lortab 10/325) 1 tab PRN Q6HRS PRN PO MOD TO SEVERE PAIN, 1ST CHOICE Last administered on 02/02/21at 04:38; Start 01/26/21 at 14:30; Stop 02/02/21 at 08:44; Status DC Lidocaine (Lidoderm) 1 patch DAILY TD Last administered on 02/02/21at 10:08; Start 01/26/21 at 14:00 Miscellaneous (Lidoderm Patch Removal) 1 ea QHS MC Last administered on 02/01/21at 21:35; Start 01/26/21 at 21:00 Tizanidine HCl (Zanaflex) 4 mg PRN Q8HRS PRN PO MUSCLE SPASMS Last administered on 01/31/21at 06:40; Start 01/26/21 at 14:30 Methylprednisolone (Medrol) 8 mg BID PO Last administered on 01/26/21at 21:36; Start 01/26/21 at 15:00; Stop 01/26/21 at 21:01; Status DC Methylprednisolone (Medrol) 4 mg BID@1700,1900 PO ; Start 01/26/21 at 17:00; Stop 01/26/21 at 19:01; Status DC Methylprednisolone (Medrol) 4 mg TIDPC PO Last administered on 01/27/21at 17:35; Start 01/27/21 at 08:30; Stop 01/27/21 at 17:31; Status DC Methylprednisolone (Medrol) 8 mg QHS PO Last administered on 01/27/21at 20:35; Start 01/27/21 at 21:00; Stop 01/27/21 at 21:01; Status DC Methylprednisolone (Medrol) 4 mg QIDAFTMEAL PO Last administered on 01/28/21at 20:05; Start 01/28/21 at 09:00; Stop 01/28/21 at 21:01; Status DC Methylprednisolone (Medrol) 4 mg TID PO Last administered on 01/29/21at 20:49; Start 01/29/21 at 09:00; Stop 01/29/21 at 21:01; Status DC Methylprednisolone (Medrol) 4 mg BID PO Last administered on 01/30/21at 20:31; Start 01/30/21 at 09:00; Stop 01/30/21 at 21:01; Status DC Methylprednisolone (Medrol) 4 mg DAILY PO Last administered on 01/31/21at 08:55; Start 01/31/21 at 09:00; Stop 01/31/21 at 09:01; Status DC Pantoprazole Sodium (Protonix) 40 mg DAILYAC PO Last administered on 01/26/21at 19:53; Start 01/26/21 at 16:30; Stop 01/26/21 at 21:02; Status DC Sodium Chloride (Normal Saline Flush) 3 ml QSHIFT PRN IV AFTER MEDS AND BLOOD DRAWS; Start 01/26/21 at 14:45 Sodium Chloride 1,000 ml @ 75 mls/hr [id number] IV Last administered on 01/28/21at 06:20; Start 01/26/21 at 14:45; Stop 01/28/21 at 16:25; Status DC Ondansetron HCl (Zofran) 4 mg PRN Q4HRS PRN IV NAUSEA/VOMITING; Start 01/26/21 at 14:45 Acetaminophen (Tylenol) 650 mg PRN Q4HRS PRN PO TEMP OVER 100.4F OR MILD PAIN Last administered on 01/27/21at 05:42; Start 01/26/21 at 14:45 Acetaminophen (Tylenol Supp) 650 mg PRN Q4HRS PRN OK TEMP OVER 100.4F OR MILD PAIN; Start 01/26/21 at 14:45; Stop 02/02/21 at 08:42; Status DC Al Hydroxide/Mg Hydroxide (Mylanta Plus Xs) 30 ml PRN DAILY PRN PO HEARTBURN / GAS; Start 01/26/21 at 14:45 Clonidine HCl (Catapres) 0.1 mg PRN Q6HRS PRN PO SBP>160 OR DBP>90 Last administered on 01/29/21at 08:33; Start 01/26/21 at 14:45 Sodium Monofluorophosphate (Fleet Adult) 133 ml PRN DAILY PRN OK CONSTIPATION,2nd RECTAL CHOICE; Start 01/26/21 at 14:45 Docusate Sodium (Colace) 100 mg PRN BID PRN PO HARD STOOLS; Start 01/26/21 at 14:45 Albuterol Sulfate (Ventolin Neb Soln) 2.5 mg PRN Q4HRS PRN NEB SHORTNESS OF BREATH; Start 01/26/21 at 14:45 Guaifenesin (Robitussin) 200 mg PRN Q4HRS PRN PO COUGH; Start 01/26/21 at 14:45 Lorazepam (Ativan) 0.5 mg PRN Q4HRS PRN PO ANXIETY / AGITATION,2nd CHOICE Last administered on 01/31/21at 13:58; Start 01/26/21 at 14:45; Stop 02/02/21 at 08:44; Status DC Hydromorphone HCl (Dilaudid) 0.5 mg PRN Q2HRS PRN IV SEVERE PAIN 7-10 Last administered on 01/28/21at 15:14; Start 01/26/21 at 14:45; Stop 01/28/21 at 15:23; Status DC Enoxaparin Sodium (Lovenox 40mg Syringe) 40 mg Q24H SQ Last administered on 02/01/21at 16:22; Start 01/26/21 at 16:00 Atorvastatin Calcium (Lipitor) 40 mg HS PO Last administered on 02/01/21at 21:34; Start 01/26/21 at 21:00 Duloxetine HCl (Cymbalta) 20 mg BID PO Last administered on 02/02/21 10:04; Start 01/26/21 at 21:00 Fluticasone Propionate (Flonase) 1 spray DAILY NS Last administered on 02/02/21 09:00; Start 01/27/21 at 09:00 Levothyroxine Sodium (Synthroid) 50 mcg DAILY07 PO Last administered on 02/02/21 10:06; Start 01/27/21 at 07:00 Lisinopril (Prinivil) 20 mg DAILY PO Last administered on 02/02/21 10:07; Start 01/27/21 at 09:00 Pregabalin (Lyrica) 75 mg BID PO Last administered on 02/02/21 10:06; Start 01/26/21 at 21:00 Sennosides (Senna) 17.2 mg BID PO Last administered on 02/02/21 10:05; Start 01/26/21 at 21:00 Sucralfate (Carafate) 1 gm BID PO Last administered on 02/02/21 10:06; Start 01/26/21 at 21:00 Tamsulosin HCl (Flomax) 0.4 mg DAILY PO Last administered on 02/02/21 10:06; Start 01/27/21 at 09:00 Zolpidem Tartrate (Ambien) 5 mg PRN QHS PRN PO INSOMNIA Last administered on 02/01/21 21:34; Start 01/26/21 at 20:45 Lactobacillus Rhamnosus (Culturelle) 1 cap DAILY PO Last administered on 02/02/21 10:05; Start 01/27/21 at 09:00 Calcium/Vitamin D (Oscal D 500mg/ 200uts) 1 tab BIDWMEALS PO Last administered on 02/02/21 10:06; Start 01/27/21 at 08:00 Clonazepam (KlonoPIN) 1 mg PRN TID PRN PO ANXIETY / AGITATION,1st CHOICE Last administered on 02/01/21 14:27; Start 01/26/21 at 21:00; Stop 02/02/21 at 08:42; Status DC Clonazepam (KlonoPIN) 2 mg HS PO Last administered on 02/01/21at 21:31; Start 01/26/21 at 21:00 Docusate Sodium (Colace) 100 mg BID PO Last administered on 02/02/21at 10:07; Start 01/26/21 at 21:00 Non-Formulary Medication (Lactobacillus Rhamnosus Gg (Culturelle)) 1 cap DAILY PO ; Start 01/27/21 at 09:00; Stop 01/26/21 at 20:58; Status DC Lurasidone HCl (Latuda) 60 mg DAILYWBKFT PO Last administered on 02/02/21at 10:05; Start 01/27/21 at 08:00 Multivitamins (Thera M Plus) 1 tab DAILY PO Last administered on 02/02/21 10:06; Start 01/27/21 at 09:00 Non-Formulary Medication (Naloxegol Oxalate (Movantik)) 25 mg DAILY PO ; Start 01/27/21 at 09:00; Stop 01/27/21 at 16:13; Status DC Pantoprazole Sodium (Protonix) 40 mg DAILYAC PO Last administered on 02/02/21at 10:06; Start 01/27/21 at 07:30 Vitamin E (Vitamin E) 200 unit DAILY PO Last administered on 02/02/21at 10:05; Start 01/27/21 at 09:00 Non-Formulary Medication ([cranber] ) 450 mg DAILY PRN PO urinary; Start 01/26/21 at 20:45; Stop 01/26/21 at 20:57; Status DC Cyanocobalamin (Vitamin B-12) 500 mcg DAILY PO Last administered on 02/02/21at 10:04; Start 01/27/21 at 09:00 Vitamin D (Vitamin D3) 1,000 unit DAILY PO Last administered on 02/02/21at 10:05; Start 01/27/21 at 09:00 Fentanyl (Duragesic 50mcg/ Hr Patch) 1 patch Q72H TD Last administered on 01/31/21 12:23; Start 01/28/21 at 12:00 Diclofenac Sodium (Voltaren) 1 catia DAILY TP Last administered on 02/02/21 10:04; Start 01/28/21 at 12:00 Hydromorphone HCl (Dilaudid) 1 mg PRN Q4HRS PRN PO MOD TO SEV PAIN, 2ND CHOICE Last administered on 02/01/21at 19:42; Start 01/28/21 at 15:30; Stop 02/02/21 at 08:44; Status DC Hydralazine HCl (Apresoline Inj) 10 mg PRN Q4HRS PRN IVP ELEVATED BP, SEE COMMENTS Last administered on 01/28/21at 23:17; Start 01/28/21 at 23:15 Magnesium Citrate (Citroma) 296 ml PRN 1X PRN PO CONSTIPATION Last administered on 01/29/21at 12:18; Start 01/29/21 at 09:15 Bisacodyl (Dulcolax Supp) 10 mg PRN DAILY PRN OK CONSTIPATION,1st RECTAL CHOICE Last administered on 01/29/21at 12:19; Start 01/29/21 at 09:15 Bisacodyl (Dulcolax Tab) 10 mg DAILY PO Last administered on 02/02/21at 10:05; Start 01/29/21 at 09:15 Guaifenesin (Robitussin Dm) 10 ml PRN Q6HRS PRN PO COUGH- 2ND CHOICE; Start 01/30/21 at 10:15 Ceftriaxone Sodium (Rocephin) 1 gm Q24H IVP Last administered on 02/01/21at 14:28; Start 01/30/21 at 14:00; Stop 02/01/21 at 14:01; Status DC Sodium Chloride 1,000 ml @ 75 mls/hr [id number] IV Last administered on 02/02/21at 12:23; Start 02/01/21 at 13:15 Clonazepam (KlonoPIN) 1 mg BID PO Last administered on 02/02/21at 10:10; Start 02/02/21 at 09:00 Acetaminophen/ Hydrocodone Bitart (Lortab 10/325) 1 tab PRN Q4HRS PRN PO MODERATE TO SEVERE PAIN; Start 02/02/21 at 08:45 Hydromorphone HCl (Dilaudid) 1 mg PRN Q3HRS PRN PO BREAKTHROUGH PAIN Last administered on 02/02/21at 10:18; Start 02/02/21 at 08:45 Active Scripts Active Medrol (Methylprednisolone) 4 Mg Tab.ds.pk 1 Pkg PO UD 6 Days Reported Zolpidem Tartrate 5 Mg Tablet 10 Mg PO QHS PRN Vitamin E (Vitamin E Mixed) 400 Unit Tablet 200 Unit PO DAILY [vitamin D] 1,000 Intlu PO DAILY [vitamin] [vitamin b12] 500 Mcg PO DAILY Flomax (Tamsulosin Hcl) 0.4 Mg Cap.er.24h 0.4 Mg PO DAILY Sucralfate 1 Gm Tablet 1 Gm PO BID Senna Laxative (Sennosides) 8.6 Mg Tablet 2 Tab PO BID 30 Days Trang-Bid Caplet (Acidoph/L.bulg/Bif.b/S.thermop) 1 Each Tablet 1 Each PO DAILY Lyrica (Pregabalin) 75 Mg Capsule 75 Mg PO BID Omeprazole 20 Mg Capsule.dr 20 Mg PO DAILY One-Daily Multi-Vitamin (Multivitamin) 1 Each Tablet 1 Tab PO DAILY 30 Days Movantik (Naloxegol Oxalate) 25 Mg Tablet 25 Mg PO DAILY Lisinopril 20 Mg Tablet 1 Tab PO DAILY Levothyroxine Sodium 50 Mcg Tablet 1 Tab PO DAILY Latuda (Lurasidone Hcl) 60 Mg Tablet 60 Mg PO DAILY Culturelle (Lactobacillus Rhamnosus Gg) 1 Each Capsule 1 Cap PO DAILY 30 Days Cymbalta (Duloxetine Hcl) 20 Mg Capsule.dr 20 Mg PO BID Colace Clear (Docusate Sodium) 50 Mg Capsule 1 Cap PO BID 30 Days [cranber] 450 Mg PO DAILY PRN Fluticasone Propionate Nasal [place] (Fluticasone Propionate) 16 Gm [place].susp 1 [place] NS DAILY FENTANYL 50mcg/hr (Fentanyl) 1 Each Patch.td72 1 Patch TD Q72H Clonazepam 2 Mg Tablet 2 Mg PO HS Clonazepam 1 Mg Tablet 1 Mg PO TID Calcium 600 + Vit D3 Caplet (Calcium Carbonate/Vitamin D3) 1 Each Tablet 1 Tab PO BID 30 Days Atorvastatin Calcium 40 Mg Tablet 40 Mg PO HS Vitals/I & O Vital Sign - Last 24 Hours 02/01/21 02/01/21 02/01/21 02/01/21 14:28 14:58 15:26 16:23 Temp 98.4 98.4 Pulse 74 Resp 18 17 18 B/P (MAP) 115/83 (94) Pulse Ox 90 O2 Delivery Room Air Room Air Room Air Room Air 02/01/21 02/01/21 02/01/21 02/01/21 16:53 19:00 19:40 19:42 Temp 97.9 97.9 Pulse 85 Resp 17 20 B/P (MAP) 112/75 (87) Pulse Ox 94 O2 Delivery Room Air Room Air Room Air Room Air 02/01/21 02/01/21 02/01/21 02/02/21 20:12 21:57 23:14 00:18 Temp 98.2 98.2 Pulse 60 Resp 18 20 18 18 B/P (MAP) 130/81 (97) Pulse Ox 94 O2 Delivery Room Air Room Air Room Air Room Air 02/02/21 02/02/21 02/02/21 02/02/21 03:08 04:38 05:08 07:00 Temp 98.6 98.3 98.6 98.3 Pulse 81 74 Resp 18 18 18 20 B/P (MAP) 133/87 (102) 128/92 (104) Pulse Ox 95 93 O2 Delivery Room Air Room Air Room Air Room Air 02/02/21 02/02/21 02/02/21 02/02/21 08:00 10:07 10:18 11:03 Temp 97.4 97.4 Pulse 74 80 Resp 20 B/P (MAP) 128/92 136/95 (109) Pulse Ox 93 99 O2 Delivery Room Air Room Air Room Air 02/02/21 11:37 O2 Delivery Room Air Intake and Output 02/01/21 02/01/21 02/02/21 15:00 23:00 07:00 Intake Total 250 ml Output Total 1800 ml 600 ml Balance -1800 ml -350 ml Justifications for Admission Other Justification intractable lumbar radiculopathy FRANCISCO JAVIER GIORDANO MD Feb 02, 2021 12:46
[2021-02-02 15:00] VITALS: BP 122/80
[2021-02-02 15:48] LABS: BASO # 0.1 x10^3/uL (0.0-0.2); BASO % 1 % (0-3); EOS # 0.1 x10^3/uL (0.0-0.7); EOS % 0 % (0-3); HEMATOCRIT 50.9 % (36.0-47.0); HEMOGLOBIN 17.5 g/dL (12.0-15.5); LYMPH # 2.6 x10^3/uL (1.0-4.8); LYMPH % 20 % (24-48); MEAN CORPUSCULAR HEMOGLOBIN 30 pg (25-35); MEAN CORPUSCULAR HGB CONC 34 g/dL (31-37); MEAN CORPUSCULAR VOLUME 88 fL (79-100); MONO # 1.3 x10^3/uL (0.0-1.1); MONO % 10 % (0-9); NEUT # 8.7 x10^3/uL (1.8-7.7); NEUT % 68 % (31-73); PLATELET COUNT 254 x10^3/uL (140-400); RED CELL DISTRIBUTION WIDTH 13.6 % (11.5-14.5); WHITE BLOOD COUNT 12.7 x10^3/uL (4.0-11.0)
[2021-02-02 16:04] LABS: CREATININE 0.7 mg/dL (0.6-1.0); GFR 84.8; POTASSIUM 4.1 mmol/L (3.5-5.1)
[2021-02-02] MEDS: ENOXAPARIN 40 MG/0.4 ML SYRINGE. SQ SCH (16:20)
[2021-02-02 19:00] VITALS: BP 129/88
[2021-02-02] MEDS: ATORVASTATIN CALCIUM 40 MG TABLET. PO SCH (20:18)
[2021-02-02] MEDS: PATCH REMOVAL. MC SCH (21:00)
[2021-02-02] MEDS: ZOLPIDEM 5 MG TABLET. PO PRN (21:13)
[2021-02-02 23:00] VITALS: BP 107/79
[2021-02-03] MEDS: HYDROcodone/APAP 10/325 1 TAB TABLET PO PRN ×4 (02:00→15:25)
[2021-02-03 03:00] VITALS: BP 136/87
--- NOTE | 2021-02-03 03:54 | NUR ---
Pt was given Lortab @ 2am. Med scanned prior going to pt's room (Covid +) but accidentally wasnt saved due to computer timed out.
[2021-02-03] MEDS: HYDROmorphone 2 MG TABLET PO PRN (04:06)
[2021-02-03] MEDS: IV 1/2 NORMAL SALINE 1,000 ML IV SCH (05:15)
[2021-02-03 07:00] VITALS: BP 124/75
[2021-02-03] MEDS: LEVOTHYROXINE 50 MCG TABLET PO SCH (07:32)
[2021-02-03] MEDS: PANTOPRAZOLE 40 MG TABLET.DR. PO SCH (07:32)
[2021-02-03] MEDS: DICLOFENAC SODIUM 1% TOPICAL GEL 100GM TUBE. TP SCH (08:50)
[2021-02-03] MEDS: LIDOCAINE (700MG/PATCH) PATCH. TD SCH (08:50)
[2021-02-03] MEDS: DULoxetine HCL 20 MG CAPSULE.DR PO SCH (08:51)
[2021-02-03] MEDS: clonazePAM 0.5 MG TABLET PO SCH (08:51)
[2021-02-03] MEDS: CYANOCOBALAMIN (VITAMIN B-12) 1,000 MCG TABLET. PO SCH (08:52)
[2021-02-03] MEDS: VITAMIN E 200 UNIT CAPSULE. PO SCH (08:53)
[2021-02-03] MEDS: CHOLECALCIFEROL (VITAMIN D3) 1,000 UNIT TABLET PO SCH (08:53)
[2021-02-03] MEDS: LURASIDONE 40 MG TABLET. PO SCH (08:53)
[2021-02-03] MEDS: MULTIVITAMIN with MINERAL TABLET. PO SCH (08:54)
[2021-02-03] MEDS: LISINOPRIL 20 MG TABLET PO SCH (08:54)
[2021-02-03] MEDS: SUCRALFATE 1 GM TABLET. PO SCH (08:54)
[2021-02-03] MEDS: BISACODYL 5 MG TABLET.DR. PO SCH (08:54)
[2021-02-03] MEDS: DOCUSATE SODIUM 100 MG CAPSULE. PO SCH (08:54)
[2021-02-03] MEDS: TAMSULOSIN 0.4 MG CAP.ER.24H. PO SCH (08:54)
[2021-02-03] MEDS: SENNOSIDES 8.6 MG TABLET PO SCH (08:54)
[2021-02-03] MEDS: FLUTICASONE 50MCG/NASAL SPRAY 16GM BOTTLE. NS SCH (08:55)
[2021-02-03] MEDS: PREGABALIN 75 MG CAPSULE PO SCH (08:55)
[2021-02-03] MEDS: LACTOBACILLUS RHAMNOSUS GG 1 CAPSULE. PO SCH (08:55)
[2021-02-03] MEDS: CALCIUM CARB/VIT D3 500/200 TABLET. PO SCH (08:55)
--- NOTE | 2021-02-03 09:54 | PDOC ---
PROGRESS NOTES Date of Service DATE: 02/03/21 TIME: 09:52 Subjective Subjective No new complaints. Objective Objective Vital Signs Date Time Temp Pulse Resp B/P (MAP) Pulse Ox O2 Delivery O2 Flow Rate FiO2 02/03/21 08:54 59 124/75 02/03/21 08:00 Room Air 02/03/21 07:00 98.3 20 97 98.3 02/03/21 03:00 1.0 Intake and Output 02/03/21 07:00 Intake Total 1280 ml Output Total 1650 ml Balance -370 ml Intake Oral 1280 ml Output Urine Total 1650 ml Physical Exam Physical Exam She continues to work with physical and occupational therapy and making some progress with bed mobility and transfers. Assessment Assessment Problems Medical Problems: (1) Acute left-sided low back pain with sciatica Status: Acute (2) Intractable low back pain Status: Acute (3) Unable to ambulate Status: Acute Plan Plan of Care Agree with plans for SNF transfer when medically stable. Comment Review of Relevant I have reviewed the following items luis (where applicable) has been applied. Labs Laboratory Tests Test 02/01/21 12:30 02/02/21 15:30 White Blood Count 10.6 x10^3/uL (4.0-11.0) 12.7 x10^3/uL (4.0-11.0) Red Blood Count 6.00 x10^6/uL (3.50-5.40) 5.80 x10^6/uL (3.50-5.40) Hemoglobin 17.8 g/dL (12.0-15.5) 17.5 g/dL (12.0-15.5) Hematocrit 54.1 % (36.0-47.0) 50.9 % (36.0-47.0) Mean Corpuscular Volume 90 fL (79-100) 88 fL (79-100) Mean Corpuscular Hemoglobin 30 pg (25-35) 30 pg (25-35) Mean Corpuscular Hemoglobin Concent 33 g/dL (31-37) 34 g/dL (31-37) Red Cell Distribution Width 14.1 % (11.5-14.5) 13.6 % (11.5-14.5) Platelet Count 215 x10^3/uL (140-400) 254 x10^3/uL (140-400) Neutrophils (%) (Auto) 59 % (31-73) 68 % (31-73) Lymphocytes (%) (Auto) 28 % (24-48) 20 % (24-48) Monocytes (%) (Auto) 12 % (0-9) 10 % (0-9) Eosinophils (%) (Auto) 1 % (0-3) 0 % (0-3) Basophils (%) (Auto) 1 % (0-3) 1 % (0-3) Neutrophils # (Auto) 6.2 x10^3/uL (1.8-7.7) 8.7 x10^3/uL (1.8-7.7) Lymphocytes # (Auto) 3.0 x10^3/uL (1.0-4.8) 2.6 x10^3/uL (1.0-4.8) Monocytes # (Auto) 1.2 x10^3/uL (0.0-1.1) 1.3 x10^3/uL (0.0-1.1) Eosinophils # (Auto) 0.1 x10^3/uL (0.0-0.7) 0.1 x10^3/uL (0.0-0.7) Basophils # (Auto) 0.1 x10^3/uL (0.0-0.2) 0.1 x10^3/uL (0.0-0.2) Sodium Level 136 mmol/L (136-145) 138 mmol/L (136-145) Potassium Level 4.5 mmol/L (3.5-5.1) 4.1 mmol/L (3.5-5.1) Chloride Level 102 mmol/L (98-107) 102 mmol/L (98-107) Carbon Dioxide Level 21 mmol/L (21-32) 24 mmol/L (21-32) Anion Gap 13 (6-14) 12 (6-14) Blood Urea Nitrogen 19 mg/dL (7-20) 14 mg/dL (7-20) Creatinine 0.8 mg/dL (0.6-1.0) 0.7 mg/dL (0.6-1.0) Estimated GFR (Cockcroft-Gault) 72.7 84.8 Glucose Level 95 mg/dL (70-99) 122 mg/dL (70-99) Calcium Level 9.5 mg/dL (8.5-10.1) 9.0 mg/dL (8.5-10.1) Laboratory Tests Test 02/02/21 15:30 White Blood Count 12.7 x10^3/uL (4.0-11.0) Red Blood Count 5.80 x10^6/uL (3.50-5.40) Hemoglobin 17.5 g/dL (12.0-15.5) Hematocrit 50.9 % (36.0-47.0) Mean Corpuscular Volume 88 fL (79-100) Mean Corpuscular Hemoglobin 30 pg (25-35) Mean Corpuscular Hemoglobin Concent 34 g/dL (31-37) Red Cell Distribution Width 13.6 % (11.5-14.5) Platelet Count 254 x10^3/uL (140-400) Neutrophils (%) (Auto) 68 % (31-73) Lymphocytes (%) (Auto) 20 % (24-48) Monocytes (%) (Auto) 10 % (0-9) Eosinophils (%) (Auto) 0 % (0-3) Basophils (%) (Auto) 1 % (0-3) Neutrophils # (Auto) 8.7 x10^3/uL (1.8-7.7) Lymphocytes # (Auto) 2.6 x10^3/uL (1.0-4.8) Monocytes # (Auto) 1.3 x10^3/uL (0.0-1.1) Eosinophils # (Auto) 0.1 x10^3/uL (0.0-0.7) Basophils # (Auto) 0.1 x10^3/uL (0.0-0.2) Sodium Level 138 mmol/L (136-145) Potassium Level 4.1 mmol/L (3.5-5.1) Chloride Level 102 mmol/L (98-107) Carbon Dioxide Level 24 mmol/L (21-32) Anion Gap 12 (6-14) Blood Urea Nitrogen 14 mg/dL (7-20) Creatinine 0.7 mg/dL (0.6-1.0) Estimated GFR (Cockcroft-Gault) 84.8 Glucose Level 122 mg/dL (70-99) Calcium Level 9.0 mg/dL (8.5-10.1) Microbiology 01/26/21 Urine Culture - Final, Complete 01/26/21 Antimicrobic Susceptibility - Final, Complete Medications Current Medications Dexamethasone Sodium Phosphate (Decadron) 10 mg 1X ONCE IM Last administered on 01/25/21at 22:25; Start 01/25/21 at 22:30; Stop 01/25/21 at 22:31; Status DC Orphenadrine Citrate (Norflex) 60 mg 1X ONCE IM Last administered on 01/25/21at 22:23; Start 01/25/21 at 22:30; Stop 01/25/21 at 22:31; Status DC Clonidine HCl (Catapres) 0.1 mg 1X ONCE PO Last administered on 01/25/21at 23:05; Start 01/25/21 at 23:00; Stop 01/25/21 at 23:01; Status DC Acetaminophen/ Hydrocodone Bitart (Lortab 5/325) 1 tab 1X ONCE PO Last administered on 01/26/21at 01:26; Start 01/26/21 at 01:30; Stop 01/26/21 at 01:31; Status DC Clonazepam (KlonoPIN) 2 mg 1X ONCE PO Last administered on 01/26/21at 01:29; Start 01/26/21 at 01:30; Stop 01/26/21 at 01:31; Status DC Acetaminophen/ Hydrocodone Bitart (Lortab 5/325) 1 tab 1X ONCE PO Last administered on 01/26/21at 04:54; Start 01/26/21 at 05:00; Stop 01/26/21 at 05:01; Status DC Clonazepam (KlonoPIN) 2 mg 1X PRN PRN PO ANXIETY / AGITATION Last administered on 01/26/21at 09:13; Start 01/26/21 at 06:15; Stop 01/26/21 at 10:00; Status DC Hydromorphone HCl (Dilaudid) 0.4 mg PRN Q4HRS PRN IVP MODERATE TO SEVERE PAIN Last administered on 01/28/21at 06:15; Start 01/26/21 at 10:00; Stop 01/28/21 at 15:23; Status DC Methylprednisolone Acetate (DEPO-Medrol 40MG VIAL) 40 mg 1X ONCE IM ; Start 01/26/21 at 15:00; Stop 01/26/21 at 15:01; Status DC Bupivacaine HCl (Sensorcaine-Mpf 0.25%) 10 ml 1X ONCE IJ ; Start 01/26/21 at 15:00; Stop 01/26/21 at 15:01; Status DC Acetaminophen/ Hydrocodone Bitart (Lortab 10/325) 1 tab PRN Q6HRS PRN PO MOD TO SEVERE PAIN, 1ST CHOICE Last administered on 02/02/21at 04:38; Start 01/26/21 at 14:30; Stop 02/02/21 at 08:44; Status DC Lidocaine (Lidoderm) 1 patch DAILY TD Last administered on 02/03/21at 08:50; Start 01/26/21 at 14:00 Miscellaneous (Lidoderm Patch Removal) 1 ea QHS MC Last administered on 02/02/21at 21:00; Start 01/26/21 at 21:00 Tizanidine HCl (Zanaflex) 4 mg PRN Q8HRS PRN PO MUSCLE SPASMS Last administered on 01/31/21at 06:40; Start 01/26/21 at 14:30 Methylprednisolone (Medrol) 8 mg BID PO Last administered on 01/26/21at 21:36; Start 01/26/21 at 15:00; Stop 01/26/21 at 21:01; Status DC Methylprednisolone (Medrol) 4 mg BID@1700,1900 PO ; Start 01/26/21 at 17:00; Stop 01/26/21 at 19:01; Status DC Methylprednisolone (Medrol) 4 mg TIDPC PO Last administered on 01/27/21at 17:35; Start 01/27/21 at 08:30; Stop 01/27/21 at 17:31; Status DC Methylprednisolone (Medrol) 8 mg QHS PO Last administered on 01/27/21at 20:35; Start 01/27/21 at 21:00; Stop 01/27/21 at 21:01; Status DC Methylprednisolone (Medrol) 4 mg QIDAFTMEAL PO Last administered on 01/28/21at 20:05; Start 01/28/21 at 09:00; Stop 01/28/21 at 21:01; Status DC Methylprednisolone (Medrol) 4 mg TID PO Last administered on 01/29/21at 20:49; Start 01/29/21 at 09:00; Stop 01/29/21 at 21:01; Status DC Methylprednisolone (Medrol) 4 mg BID PO Last administered on 01/30/21at 20:31; Start 01/30/21 at 09:00; Stop 01/30/21 at 21:01; Status DC Methylprednisolone (Medrol) 4 mg DAILY PO Last administered on 01/31/21at 08:55; Start 01/31/21 at 09:00; Stop 01/31/21 at 09:01; Status DC Pantoprazole Sodium (Protonix) 40 mg DAILYAC PO Last administered on 01/26/21at 19:53; Start 01/26/21 at 16:30; Stop 01/26/21 at 21:02; Status DC Sodium Chloride (Normal Saline Flush) 3 ml QSHIFT PRN IV AFTER MEDS AND BLOOD DRAWS; Start 01/26/21 at 14:45 Sodium Chloride 1,000 ml @ 75 mls/hr [id number] IV Last administered on 01/28/21at 06:20; Start 01/26/21 at 14:45; Stop 01/28/21 at 16:25; Status DC Ondansetron HCl (Zofran) 4 mg PRN Q4HRS PRN IV NAUSEA/VOMITING; Start 01/26/21 at 14:45 Acetaminophen (Tylenol) 650 mg PRN Q4HRS PRN PO TEMP OVER 100.4F OR MILD PAIN Last administered on 01/27/21at 05:42; Start 01/26/21 at 14:45 Acetaminophen (Tylenol Supp) 650 mg PRN Q4HRS PRN OR TEMP OVER 100.4F OR MILD PAIN; Start 01/26/21 at 14:45; Stop 02/02/21 at 08:42; Status DC Al Hydroxide/Mg Hydroxide (Mylanta Plus Xs) 30 ml PRN DAILY PRN PO HEARTBURN / GAS; Start 01/26/21 at 14:45 Clonidine HCl (Catapres) 0.1 mg PRN Q6HRS PRN PO SBP>160 OR DBP>90 Last administered on 01/29/21at 08:33; Start 01/26/21 at 14:45 Sodium Monofluorophosphate (Fleet Adult) 133 ml PRN DAILY PRN OR CONSTIPATION,2nd RECTAL CHOICE; Start 01/26/21 at 14:45 Docusate Sodium (Colace) 100 mg PRN BID PRN PO HARD STOOLS; Start 01/26/21 at 14:45 Albuterol Sulfate (Ventolin Neb Soln) 2.5 mg PRN Q4HRS PRN NEB SHORTNESS OF BREATH; Start 01/26/21 at 14:45 Guaifenesin (Robitussin) 200 mg PRN Q4HRS PRN PO COUGH; Start 01/26/21 at 14:45 Lorazepam (Ativan) 0.5 mg PRN Q4HRS PRN PO ANXIETY / AGITATION,2nd CHOICE Last administered on 01/31/21at 13:58; Start 01/26/21 at 14:45; Stop 02/02/21 at 08:44; Status DC Hydromorphone HCl (Dilaudid) 0.5 mg PRN Q2HRS PRN IV SEVERE PAIN 7-10 Last administered on 01/28/21at 15:14; Start 01/26/21 at 14:45; Stop 01/28/21 at 15:23; Status DC Enoxaparin Sodium (Lovenox 40mg Syringe) 40 mg Q24H SQ Last administered on 02/02/21at 16:20; Start 01/26/21 at 16:00 Atorvastatin Calcium (Lipitor) 40 mg HS PO Last administered on 02/02/21at 20:18; Start 01/26/21 at 21:00 Duloxetine HCl (Cymbalta) 20 mg BID PO Last administered on 02/03/21at 08:51; Start 01/26/21 at 21:00 Fluticasone Propionate (Flonase) 1 spray DAILY NS Last administered on 02/03/21at 08:55; Start 01/27/21 at 09:00 Levothyroxine Sodium (Synthroid) 50 mcg DAILY07 PO Last administered on 02/03/21at 07:32; Start 01/27/21 at 07:00 Lisinopril (Prinivil) 20 mg DAILY PO Last administered on 02/03/21at 08:54; Start 01/27/21 at 09:00 Pregabalin (Lyrica) 75 mg BID PO Last administered on 02/03/21at 08:55; Start 01/26/21 at 21:00 Sennosides (Senna) 17.2 mg BID PO Last administered on 02/03/21 08:54; Start 01/26/21 at 21:00 Sucralfate (Carafate) 1 gm BID PO Last administered on 02/03/21 08:54; Start 01/26/21 at 21:00 Tamsulosin HCl (Flomax) 0.4 mg DAILY PO Last administered on 02/03/21 08:54; Start 01/27/21 at 09:00 Zolpidem Tartrate (Ambien) 5 mg PRN QHS PRN PO INSOMNIA Last administered on 02/02/21 21:13; Start 01/26/21 at 20:45 Lactobacillus Rhamnosus (Culturelle) 1 cap DAILY PO Last administered on 02/03/21 08:55; Start 01/27/21 at 09:00 Calcium/Vitamin D (Oscal D 500mg/ 200uts) 1 tab BIDWMEALS PO Last administered on 02/03/21 08:55; Start 01/27/21 at 08:00 Clonazepam (KlonoPIN) 1 mg PRN TID PRN PO ANXIETY / AGITATION,1st CHOICE Last administered on 02/01/21 14:27; Start 01/26/21 at 21:00; Stop 02/02/21 at 08:42; Status DC Clonazepam (KlonoPIN) 2 mg HS PO Last administered on 02/02/21 20:19; Start 01/26/21 at 21:00 Docusate Sodium (Colace) 100 mg BID PO Last administered on 02/03/21 08:54; Start 01/26/21 at 21:00 Non-Formulary Medication (Lactobacillus Rhamnosus Gg (Culturelle)) 1 cap DAILY PO ; Start 01/27/21 at 09:00; Stop 01/26/21 at 20:58; Status DC Lurasidone HCl (Latuda) 60 mg DAILYWBKFT PO Last administered on 02/03/21 08:53; Start 01/27/21 at 08:00 Multivitamins (Thera M Plus) 1 tab DAILY PO Last administered on 02/03/21 08:54; Start 01/27/21 at 09:00 Non-Formulary Medication (Naloxegol Oxalate (Movantik)) 25 mg DAILY PO ; Start 01/27/21 at 09:00; Stop 01/27/21 at 16:13; Status DC Pantoprazole Sodium (Protonix) 40 mg DAILYAC PO Last administered on 02/03/21 07:32; Start 01/27/21 at 07:30 Vitamin E (Vitamin E) 200 unit DAILY PO Last administered on 02/03/21 08:53; Start 01/27/21 at 09:00 Non-Formulary Medication ([cranber] ) 450 mg DAILY PRN PO urinary; Start 01/26/21 at 20:45; Stop 01/26/21 at 20:57; Status DC Cyanocobalamin (Vitamin B-12) 500 mcg DAILY PO Last administered on 02/03/21 08:52; Start 01/27/21 at 09:00 Vitamin D (Vitamin D3) 1,000 unit DAILY PO Last administered on 02/03/21 08:53; Start 01/27/21 at 09:00 Fentanyl (Duragesic 50mcg/ Hr Patch) 1 patch Q72H TD Last administered on 01/31/21 12:23; Start 01/28/21 at 12:00 Diclofenac Sodium (Voltaren) 1 catia DAILY TP Last administered on 02/03/21 08:50; Start 01/28/21 at 12:00 Hydromorphone HCl (Dilaudid) 1 mg PRN Q4HRS PRN PO MOD TO SEV PAIN, 2ND CHOICE Last administered on 02/01/21at 19:42; Start 01/28/21 at 15:30; Stop 02/02/21 at 08:44; Status DC Hydralazine HCl (Apresoline Inj) 10 mg PRN Q4HRS PRN IVP ELEVATED BP, SEE COMMENTS Last administered on 01/28/21at 23:17; Start 01/28/21 at 23:15 Magnesium Citrate (Citroma) 296 ml PRN 1X PRN PO CONSTIPATION Last administered on 01/29/21 12:18; Start 01/29/21 at 09:15 Bisacodyl (Dulcolax Supp) 10 mg PRN DAILY PRN OR CONSTIPATION,1st RECTAL CHOICE Last administered on 01/29/21at 12:19; Start 01/29/21 at 09:15 Bisacodyl (Dulcolax Tab) 10 mg DAILY PO Last administered on 8/24/21at 08:54; Start 01/29/21 at 09:15 Guaifenesin (Robitussin Dm) 10 ml PRN Q6HRS PRN PO COUGH- 2ND CHOICE; Start 01/30/21 at 10:15 Ceftriaxone Sodium (Rocephin) 1 gm Q24H IVP Last administered on 02/01/21at 14:28; Start 01/30/21 at 14:00; Stop 02/01/21 at 14:01; Status DC Sodium Chloride 1,000 ml @ 75 mls/hr [id number] IV Last administered on 02/02/21at 12:23; Start 02/01/21 at 13:15 Clonazepam (KlonoPIN) 1 mg BID PO Last administered on 02/03/21at 08:51; Start 02/02/21 at 09:00 Acetaminophen/ Hydrocodone Bitart (Lortab 10/325) 1 tab PRN Q4HRS PRN PO MODERATE TO SEVERE PAIN Last administered on 02/03/21at 06:11; Start 02/02/21 at 08:45 Hydromorphone HCl (Dilaudid) 1 mg PRN Q3HRS PRN PO BREAKTHROUGH PAIN Last administered on 02/03/21at 04:06; Start 02/02/21 at 08:45 Active Scripts Active Medrol (Methylprednisolone) 4 Mg Tab.ds.pk 1 Pkg PO UD 6 Days Reported Zolpidem Tartrate 5 Mg Tablet 10 Mg PO QHS PRN Vitamin E (Vitamin E Mixed) 400 Unit Tablet 200 Unit PO DAILY [vitamin D] 1,000 Intlu PO DAILY [vitamin] [vitamin b12] 500 Mcg PO DAILY Flomax (Tamsulosin Hcl) 0.4 Mg Cap.er.24h 0.4 Mg PO DAILY Sucralfate 1 Gm Tablet 1 Gm PO BID Senna Laxative (Sennosides) 8.6 Mg Tablet 2 Tab PO BID 30 Days Trang-Bid Caplet (Acidoph/L.bulg/Bif.b/S.thermop) 1 Each Tablet 1 Each PO DAILY Lyrica (Pregabalin) 75 Mg Capsule 75 Mg PO BID Omeprazole 20 Mg Capsule.dr 20 Mg PO DAILY One-Daily Multi-Vitamin (Multivitamin) 1 Each Tablet 1 Tab PO DAILY 30 Days Movantik (Naloxegol Oxalate) 25 Mg Tablet 25 Mg PO DAILY Lisinopril 20 Mg Tablet 1 Tab PO DAILY Levothyroxine Sodium 50 Mcg Tablet 1 Tab PO DAILY Latuda (Lurasidone Hcl) 60 Mg Tablet 60 Mg PO DAILY Culturelle (Lactobacillus Rhamnosus Gg) 1 Each Capsule 1 Cap PO DAILY 30 Days Cymbalta (Duloxetine Hcl) 20 Mg Capsule.dr 20 Mg PO BID Colace Clear (Docusate Sodium) 50 Mg Capsule 1 Cap PO BID 30 Days [cranber] 450 Mg PO DAILY PRN Fluticasone Propionate Nasal [place] (Fluticasone Propionate) 16 Gm [place].susp 1 [place] NS DAILY FENTANYL 50mcg/hr (Fentanyl) 1 Each Patch.td72 1 Patch TD Q72H Clonazepam 2 Mg Tablet 2 Mg PO HS Clonazepam 1 Mg Tablet 1 Mg PO TID Calcium 600 + Vit D3 Caplet (Calcium Carbonate/Vitamin D3) 1 Each Tablet 1 Tab PO BID 30 Days Atorvastatin Calcium 40 Mg Tablet 40 Mg PO HS Vitals/I & O Vital Sign - Last 24 Hours 02/02/21 02/02/21 02/02/21 02/02/21 10:07 10:18 11:03 11:37 Temp 97.4 97.4 Pulse 74 80 Resp 20 B/P (MAP) 128/92 136/95 (109) Pulse Ox 93 99 O2 Delivery Room Air Room Air Room Air 02/02/21 02/02/21 02/02/21 02/02/21 14:40 15:00 15:51 19:00 Temp 98.3 99.4 98.3 99.4 Pulse 88 88 Resp 20 18 B/P (MAP) 122/80 (94) 129/88 (102) Pulse Ox 99 95 100 O2 Delivery Room Air Room Air Room Air Room Air O2 Flow Rate 1.0 1.0 02/02/21 02/02/21 02/02/21 02/02/21 19:46 20:00 20:16 21:13 Resp 18 18 18 Pulse Ox 95 100 95 O2 Delivery Room Air Room Air Room Air Room Air O2 Flow Rate 1.0 02/02/21 02/02/21 02/03/21 02/03/21 21:43 23:00 02:00 02:30 Temp 98.6 98.6 Pulse 89 Resp 16 18 18 20 B/P (MAP) 107/79 (88) Pulse Ox 100 100 100 100 O2 Delivery Room Air Room Air Room Air Room Air O2 Flow Rate 1.0 02/03/21 02/03/21 02/03/21 02/03/21 03:00 04:06 04:36 06:11 Temp 97.7 97.7 Pulse 88 Resp 20 18 16 20 B/P (MAP) 136/87 (103) Pulse Ox 96 100 100 100 O2 Delivery Room Air Room Air Room Air Room Air O2 Flow Rate 1.0 02/03/21 02/03/21 02/03/21 02/03/21 06:41 07:00 08:00 08:54 Temp 98.3 98.3 Pulse 59 59 Resp 16 20 B/P (MAP) 124/75 (91) 124/75 Pulse Ox 100 97 O2 Delivery Room Air Room Air Room Air Intake and Output 02/02/21 02/02/21 02/03/21 15:00 23:00 07:00 Intake Total 240 ml 200 ml 840 ml Output Total 700 ml 950 ml Balance 240 ml -500 ml -110 ml Justifications for Admission Other Justification intractable lumbar radiculopathy FRANCISCO JAVIER GIORDANO MD Feb 03, 2021 09:54
[2021-02-03 11:06] VITALS: BP 111/78
[2021-02-03] MEDS: fentaNYL 50MCG/HR PATCH 1 PATCH PATCH.TD72 TD SCH (12:08)
--- NOTE | 2021-02-03 12:21 | PDOC ---
[facility] PROGRESS NOTE Date of Service DOS: DATE: 02/03/21 TIME: 12:09 Chief Complaint Chief Complaint impression Acute severe lumbar radiculopathy COVID19 Probable severe spinal canal stenosis at least at L4-L5. L arge disc herniation at T12-L1 likely contributing to marked severe spinal canal and left lateral recess stenosis Morbid obesity Moderate thoracolumbar spondylosis Hemoconcentration History of Present Illness History of Present Illness Ms Oliva is a 60 year old female w/ PMHx s/p right BKA OSTEOPOROSIS, SLIPPED DISCS, gastric bypass, smoker who who presented emergency department via EMS with complaints of pain in her left leg that radiates from her low back to her knee. she has been moving residences recently and has been doing a lot of bending./ 6 or 7 days ago she felt like she pulled a muscle. denies any numbness, tingling, or weakness of her lower left extremity. CT C/W probable severe spinal canal stenosis at least at L4-L5. There is a large disc herniation at T12-L1 likely contributing to marked severe spinal canal and left lateral recess stenosis. She was living in assisted living and just moved into her own apartment. Been struggling with mobility as for the last year and a half she has not had her right lower extremity prosthetic on if she is not been going to therapy anymore. admitted with Acute severe lumbar radiculopathy, with intractable pain // wearing a fentanyl pain patch with no benefit./ pain is worse with movement. 01/27/2021: Patient still with complaints of hip pain. Received left sacroiliac joint injection with some improvement. Await MRI results. She does have a prosthetic limb and admits to no longer working with physical therapy once COVID-19 hit. Over the past 2 years she has been mostly mobile with aid of a wheelchair. Discussed potential for physical therapy regardless of MRI results. Patient states that she does not want to discharge to alf, and would feel more comfortable discharging home with home health and her wheelchair. Await PT/OT recommendations barring MRI results. 01/28/2021: An MRI yesterday that showed moderate thoracolumbar spondylosis and severe neural foraminal narrowing at L3-4 on left. States her pain is improved. Will defer to neurosurgery in this regard. She does report regular fentanyl patch use 50 mcg to her lower back that she changes every 3 days over the past couple years. She is followed with pain management doctor. Regardless in her decision about surgical intervention or not, she is still refusing SNU; she prefers eventually to discharge home with home health services and outpatient PT. Currently on Medrol taper. Will obtain hemoglobin A1c. 01/29/2021: Feels okay, pain controlled. Per Dr. Pruitt, she may benefit from lumbar epidural steroid injections and SNU. I discussion with patient yesterday afternoon after my initial visit and this morning; she is agreeable to SNU. She has a pain management doctor that she has been in touch with on the phone while inpatient. Informed patient and manager social that as to not violate any pain management will provide information for patient to update her pain management doctor about the pharmacies used at whichever alf facility she may be accepted to. 01/30/2021: Patient seen and evaluated bedside. She denies any symptoms of fever, shortness of breath, sore throat, cough, nausea, or vomiting. She does admit to some occasional diarrhea. She is COVID-19 positive. After my informing her of her test results she now admits to having a cough for the past 4 days. She has been fully vaccinated against COVID-19. Will move patient to COVID-19 unit. Informed her that her positive result may delay her rehab p lacement. Discussed with RN. Seen in Covid isolation. Has a little bit of shortness of breath no hypoxia. She still is interested in SNF placement feels like her pain is well controlled today. No chest pain afebrile 02/02/21 Patient seen and examined at bedside, maintain fluid isolation. Patient is morning concerned she is not getting her pain medicine appropriately. She says that she takes it more frequently at home thus will increase frequency. Otherwise no major complaints. Patient reports to me that she does not feel ready for discharge. Plan of care discussed with bedside RN. 02/03/21: Patient seen and examined. She reports her pain is not well controlled at this point. She was able to stand up twice today which is an improvement from yesterday. She does not feel she can be discharged home at this time. Discussed with RN. Chart reviewed. Vitals/I&O Vitals/I&O: Vital Signs Date Time Temp Pulse Resp B/P (MAP) Pulse Ox O2 Delivery O2 Flow Rate FiO2 02/03/21 12:08 98 Room Air 02/03/21 11:06 97.6 85 20 111/78 (89) 97.6 02/03/21 03:00 1.0 I & O 02/02/21 02/02/21 02/03/21 15:00 23:00 07:00 Intake Total 240 ml 200 ml 840 ml Output Total 700 ml 950 ml Balance 240 ml -500 ml -110 ml Physical Exam General: Alert, Oriented X3, Cooperative, moderate distress Heart: Regular rate, Normal S1 Lungs: Clear Abdomen: Normal bowel sounds, Soft Extremities: No cyanosis Skin: No significant lesion Labs Labs: Laboratory Tests Test 02/02/21 15:30 White Blood Count 12.7 x10^3/uL (4.0-11.0) Red Blood Count 5.80 x10^6/uL (3.50-5.40) Hemoglobin 17.5 g/dL (12.0-15.5) Hematocrit 50.9 % (36.0-47.0) Mean Corpuscular Volume 88 fL (79-100) Mean Corpuscular Hemoglobin 30 pg (25-35) Mean Corpuscular Hemoglobin Concent 34 g/dL (31-37) Red Cell Distribution Width 13.6 % (11.5-14.5) Platelet Count 254 x10^3/uL (140-400) Neutrophils (%) (Auto) 68 % (31-73) Lymphocytes (%) (Auto) 20 % (24-48) Monocytes (%) (Auto) 10 % (0-9) Eosinophils (%) (Auto) 0 % (0-3) Basophils (%) (Auto) 1 % (0-3) Neutrophils # (Auto) 8.7 x10^3/uL (1.8-7.7) Lymphocytes # (Auto) 2.6 x10^3/uL (1.0-4.8) Monocytes # (Auto) 1.3 x10^3/uL (0.0-1.1) Eosinophils # (Auto) 0.1 x10^3/uL (0.0-0.7) Basophils # (Auto) 0.1 x10^3/uL (0.0-0.2) Sodium Level 138 mmol/L (136-145) Potassium Level 4.1 mmol/L (3.5-5.1) Chloride Level 102 mmol/L (98-107) Carbon Dioxide Level 24 mmol/L (21-32) Anion Gap 12 (6-14) Blood Urea Nitrogen 14 mg/dL (7-20) Creatinine 0.7 mg/dL (0.6-1.0) Estimated GFR (Cockcroft-Gault) 84.8 Glucose Level 122 mg/dL (70-99) Calcium Level 9.0 mg/dL (8.5-10.1) Review of Systems Review of Systems: Cardiac: No chest pain or heart palpitations. Gastrointestinal: No nausea or vomiting. Assessment and Plan Assessmemt and Plan Problems Medical Problems: (1) Acute left-sided low back pain with sciatica Status: Acute (2) Intractable low back pain Status: Acute (3) Unable to ambulate Status: Acute Plan: 1) Continue IV pain control (dilaudid 1mg q3 hrs PRN, hydrocodone/acetaminophen 1 tab q4 hrs PRN) 2) Start medrol dosepak 3) Appreciate neurosurgery consultation 4) PTOT 5) DVT prophylaxis 6) Continue purewick 7) Discharge disposition pending Comment Review of Relevant I have reviewed the following items luis (where applicable) has been applied. Justifications for Admission Other Justification intractable lumbar radiculopathy SUZIE NORRIS III DO Feb 03, 2021 12:21
--- NOTE | 2021-02-03 12:31 | SNU/HH DC ---
DISCHARGE ORDERS DISCHARGE INFORMATION: FINAL DIAGNOSIS Problems Medical Problems: (1) Acute left-sided low back pain with sciatica Status: Acute (2) Intractable low back pain Status: Acute (3) Unable to ambulate Status: Acute CONDITION ON DISCHARGE: Stable CODE STATUS: Code Status: Full GROUP HOME: SNF STAY <30 DAYS: Yes HOSPICE: HOSPICE: No HOSPICE EVAL & TREAT: No LTAC: ADMIT TO LTAC: No POST DISCHARGE ORDERS: ACTIVITY ORDERS: Bedrest today DIET AFTER DISCHARGE: Cardiac TREATMENT/EQUIPMENT ORDERS: Physical Therapy For: Evalulation/Treatment Occupational Therapy For: Evaluation/Treatment DISCHARGE MEDICATIONS: Home Meds Active Scripts Methylprednisolone (MEDROL) 4 Mg Tab.ds.pk, 1 PKG PO UD for 6 Days, #1 PKG 0 Refills Prov:[facility] 01/26/21 Reported Medications Zolpidem Tartrate (ZOLPIDEM TARTRATE) 5 Mg Tablet, 10 MG PO QHS PRN for INSOMNIA, TAB 0 Refills 01/26/21 Vitamin E Mixed (VITAMIN E) 400 Unit Tablet, 200 UNIT PO DAILY for supplement, TAB 01/26/21 [vitamin D] No Conflict Check, 1000 INTLU PO DAILY for supplement 01/26/21 [vitamin] No Conflict Check 01/26/21 [vitamin b12] No Conflict Check, 500 MCG PO DAILY for supplement 01/26/21 Tamsulosin Hcl (FLOMAX) 0.4 Mg Cap.er.24h, 0.4 MG PO DAILY for urinary, TAB 01/26/21 Sucralfate (SUCRALFATE) 1 Gm Tablet, 1 GM PO BID for ulcers, TAB 01/26/21 Sennosides (SENNA LAXATIVE) 8.6 Mg Tablet, 2 TAB PO BID for constipation for 30 Days, #120 TAB 0 Refills 01/26/21 Acidoph/L.bulg/Bif.b/S.thermop (MICHAELA-BID CAPLET) 1 Each Tablet, 1 EACH PO DAILY for GI, TAB 01/26/21 Pregabalin (LYRICA) 75 Mg Capsule, 75 MG PO BID for pain, CAP 01/26/21 Omeprazole (OMEPRAZOLE) 20 Mg Capsule.dr, 20 MG PO DAILY for GERD, CAP 01/26/21 Multivitamin (One-Daily Multi-Vitamin) 1 Each Tablet, 1 TAB PO DAILY for supplement for 30 Days, #30 TAB 0 Refills 01/26/21 Naloxegol Oxalate (Movantik) 25 Mg Tablet, 25 MG PO DAILY for constipation, TAB 01/26/21 Lisinopril (LISINOPRIL) 20 Mg Tablet, 1 TAB PO DAILY for HTN, #30 TAB 5 Refills 01/26/21 Levothyroxine Sodium (LEVOTHYROXINE SODIUM) 50 Mcg Tablet, 1 TAB PO DAILY for thyroid, #30 TAB 5 Refills 01/26/21 Lurasidone Hcl (LATUDA) 60 Mg Tablet, 60 MG PO DAILY for depression, TAB 01/26/21 Lactobacillus Rhamnosus Gg (CULTURELLE) 1 Each Capsule, 1 CAP PO DAILY for GI for 30 Days, #30 CAP 0 Refills 01/26/21 Duloxetine Hcl (CYMBALTA) 20 Mg Capsule.dr, 20 MG PO BID for depression/pain, CAP 01/26/21 Docusate Sodium (Colace Clear) 50 Mg Capsule, 1 CAP PO BID for constipation for 30 Days, #60 CAP 0 Refills 01/26/21 [cranber] No Conflict Check, 450 MG PO DAILY PRN for urinary 01/26/21 Fluticasone Propionate (FLUTICASONE PROPIONATE NASAL SPRAY) 16 Gm [place].susp, 1 SPRAY NS DAILY for allergies, #1 INHALER 11 Refills 01/26/21 Fentanyl (FENTANYL 50mcg/hr) 1 Each Patch.td72, 1 PATCH TD Q72H for pain, PATCH 01/26/21 Clonazepam (CLONAZEPAM) 2 Mg Tablet, 2 MG PO HS for anxiety, TAB 01/26/21 Clonazepam (CLONAZEPAM) 1 Mg Tablet, 1 MG PO TID for FOR ANXIETY, TAB 01/26/21 Calcium Carbonate/Vitamin D3 (Calcium 600 + Vit D3 Caplet) 1 Each Tablet, 1 TAB PO BID for supplemement for 30 Days, #60 TAB 0 Refills 01/26/21 Atorvastatin Calcium (ATORVASTATIN CALCIUM) 40 Mg Tablet, 40 MG PO HS for FOR CHOLESTEROL, #30 TAB 0 Refills 01/26/21 SUZIE NORRIS III DO Feb 03, 2021 12:31
[2021-02-03] MEDS ORDERED: HYDR-2769 PO (12:35)
--- NOTE | 2021-02-03 12:38 | SNU/HH DC ---
DISCHARGE ORDERS DISCHARGE INFORMATION: FINAL DIAGNOSIS Problems Medical Problems: (1) Acute left-sided low back pain with sciatica Status: Acute (2) Intractable low back pain Status: Acute (3) Unable to ambulate Status: Acute CONDITION ON DISCHARGE: Stable CODE STATUS: Code Status: Full SENIOR CARE: SNF STAY <30 DAYS: Yes HOSPICE: HOSPICE: No HOSPICE EVAL & TREAT: No POST DISCHARGE ORDERS: ACTIVITY ORDERS: Bedrest today DIET AFTER DISCHARGE: Cardiac TREATMENT/EQUIPMENT ORDERS: Physical Therapy For: Evalulation/Treatment Occupational Therapy For: Evaluation/Treatment DISCHARGE MEDICATIONS: Home Meds Active Scripts Hydrocodone Bit/Acetaminophen (HYDROCODONE-APAP 10-325 ) 1 Tab Tablet, 1 TAB PO PRN Q4HRS PRN for MODERATE TO SEVERE PAIN for 7 Days, #20 TAB Prov:SUZIE NORRIS III DO 02/03/21 Methylprednisolone (MEDROL) 4 Mg Tab.ds.pk, 1 PKG PO UD for 6 Days, #1 PKG 0 Refills Prov:SERA CHARLES LEADITE HEATER 01/26/21 Reported Medications Zolpidem Tartrate (ZOLPIDEM TARTRATE) 5 Mg Tablet, 10 MG PO QHS PRN for INSOMNIA, TAB 0 Refills 01/26/21 Vitamin E Mixed (VITAMIN E) 400 Unit Tablet, 200 UNIT PO DAILY for supplement, TAB 01/26/21 [vitamin D] No Conflict Check, 1000 INTLU PO DAILY for supplement 01/26/21 [vitamin] No Conflict Check 01/26/21 [vitamin b12] No Conflict Check, 500 MCG PO DAILY for supplement 01/26/21 Tamsulosin Hcl (FLOMAX) 0.4 Mg Cap.er.24h, 0.4 MG PO DAILY for urinary, TAB 01/26/21 Sucralfate (SUCRALFATE) 1 Gm Tablet, 1 GM PO BID for ulcers, TAB 01/26/21 Sennosides (SENNA LAXATIVE) 8.6 Mg Tablet, 2 TAB PO BID for constipation for 30 Days, #120 TAB 0 Refills 01/26/21 Acidoph/L.bulg/Bif.b/S.thermop (MICAHELA-BID CAPLET) 1 Each Tablet, 1 EACH PO DAILY for GI, TAB 01/26/21 Pregabalin (LYRICA) 75 Mg Capsule, 75 MG PO BID for pain, CAP 01/26/21 Omeprazole (OMEPRAZOLE) 20 Mg Capsule.dr, 20 MG PO DAILY for GERD, CAP 01/26/21 Multivitamin (One-Daily Multi-Vitamin) 1 Each Tablet, 1 TAB PO DAILY for supplement for 30 Days, #30 TAB 0 Refills 01/26/21 Naloxegol Oxalate (Movantik) 25 Mg Tablet, 25 MG PO DAILY for constipation, TAB 01/26/21 Lisinopril (LISINOPRIL) 20 Mg Tablet, 1 TAB PO DAILY for HTN, #30 TAB 5 Refills 01/26/21 Levothyroxine Sodium (LEVOTHYROXINE SODIUM) 50 Mcg Tablet, 1 TAB PO DAILY for thyroid, #30 TAB 5 Refills 01/26/21 Lurasidone Hcl (LATUDA) 60 Mg Tablet, 60 MG PO DAILY for depression, TAB 01/26/21 Lactobacillus Rhamnosus Gg (CULTURELLE) 1 Each Capsule, 1 CAP PO DAILY for GI for 30 Days, #30 CAP 0 Refills 01/26/21 Duloxetine Hcl (CYMBALTA) 20 Mg Capsule.dr, 20 MG PO BID for depression/pain, CAP 01/26/21 Docusate Sodium (Colace Clear) 50 Mg Capsule, 1 CAP PO BID for constipation for 30 Days, #60 CAP 0 Refills 01/26/21 [cranber] No Conflict Check, 450 MG PO DAILY PRN for urinary 01/26/21 Fluticasone Propionate (FLUTICASONE PROPIONATE NASAL SPRAY) 16 Gm [place].susp, 1 SPRAY NS DAILY for allergies, #1 INHALER 11 Refills 01/26/21 Fentanyl (FENTANYL 50mcg/hr) 1 Each Patch.td72, 1 PATCH TD Q72H for pain, PATCH 01/26/21 Clonazepam (CLONAZEPAM) 2 Mg Tablet, 2 MG PO HS for anxiety, TAB 01/26/21 Clonazepam (CLONAZEPAM) 1 Mg Tablet, 1 MG PO TID for FOR ANXIETY, TAB 01/26/21 Calcium Carbonate/Vitamin D3 (Calcium 600 + Vit D3 Caplet) 1 Each Tablet, 1 TAB PO BID for supplemement for 30 Days, #60 TAB 0 Refills 01/26/21 Atorvastatin Calcium (ATORVASTATIN CALCIUM) 40 Mg Tablet, 40 MG PO HS for FOR CHOLESTEROL, #30 TAB 0 Refills 01/26/21 SUZIE NORRIS III DO Feb 03, 2021 12:38
--- NOTE | 2021-02-03 14:05 | DS ---
DATE OF DISCHARGE: 02/03/2021 ADMITTING DIAGNOSIS: Intractable back pain. DISCHARGE DIAGNOSES: Resolving intractable back pain, resolving COVID-19, spinal stenosis at L4-L5, herniated disk at T12, obesity. CONSULTS: Thom Burt MD PROCEDURES: None. HOSPITAL COURSE: The patient is a pleasant, middle-aged female who presented with acute on chronic back pain. She is admitted. We did physical therapy and occupational therapy. We consulted Dr. Burt, treat her with p.r.n. pain meds and Klonopin. Over the past several days, she has returned to baseline, but still debilitated. Today, I saw and examined her, we are going to [facility] to prison. DISPOSITION: custodial. ACTIVITY: As tolerated. DIET: Low sodium. DISCHARGE MEDICATIONS: Please see the MRAD. Hydrocodone 10/325 one q.4 p.r.n., atorvastatin 40, calcium, clonazepam 1 t.i.d., docusate 1 b.i.d., Cymbalta 20 b.i.d., fentanyl patches, fluticasone nasal spray, Synthroid 50 a day, lactobacillus, lisinopril 20 a day, Medrol Dosepak, vitamins, Prilosec 20 a day, Lyrica 75 b.i.d., senna, Carafate 1 gram b.i.d., Flomax 0.4 a day and Ambien 10 at bedtime. Total time 36 minutes. [facility]: TREY/malathi TID: [id number]
[2021-02-03 15:00] VITALS: BP 111/69
[2021-02-03] MEDS: ENOXAPARIN 40 MG/0.4 ML SYRINGE. SQ SCH (15:25)
[2021-02-03] MEDS: MAGNESIUM CITRATE 296 ML SOLUTION. PO PRN (15:25)
--- NOTE | 2021-02-03 17:39 | NUR ---
Discharge Note: NOLBERTO HERNANDEZ [facility] Discharge instructions and discharge home medications reviewed with Dannielle at [facility] and a copy given. All questions have been answered and understanding verbalized. The following instructions and handouts were given: transfer of care Discontinued lines and drains: No IV present. Patient discharged to [facility] via transport.
== END 2021-02-03 17:41 | DRG 551 ==
LOC: ER 21:22 → ED HOLD 01-26 00:48 → 4 NORTH 01-26 13:10 → OBSVTOIN 01-28 14:10 → 5 NORTH 01-30 11:50 → 5 SOUTH 01-31 19:30
PROVIDERS: ADMIT Student in an Organized Health Care Education/Training Program; ATTEND Student in an Organized Health Care Education/Training Program
PROC: 3E0U33Z Introduction of Anti-inflammatory into Joints, Percutaneous Approach (ICD-10-PCS; principal; 2021-01-26)
PROC: 3E0U3BZ Introduction of Anesthetic Agent into Joints, Percutaneous Approach (ICD-10-PCS; 2021-01-26)
DX: M48.061 Spinal stenosis, lumbar region without neurogenic claudication (principal); U07.1 COVID-19; M51.15 Intervertebral disc disorders with radiculopathy, thoracolumbar region; M48.04 Spinal stenosis, thoracic region; E66.01 Morbid (severe) obesity due to excess calories; G89.29 Other chronic pain; J44.9 Chronic obstructive pulmonary disease, unspecified; M51.26 Other intervertebral disc displacement, lumbar region; M81.0 Age-related osteoporosis without current pathological fracture; Z78.9 Other specified health status; Z82.49 Family history of ischemic heart disease and other diseases of the circulatory system; Z82.5 Family history of asthma and other chronic lower respiratory diseases; Z86.14 Personal history of Methicillin resistant Staphylococcus aureus infection; Z87.442 Personal history of urinary calculi; Z89.511 Acquired absence of right leg below knee; Z89.611 Acquired absence of right leg above knee; Z96.642 Presence of left artificial hip joint; Z98.84 Bariatric surgery status; Z90.49 Acquired absence of other specified parts of digestive tract; Z68.36 Body mass index [BMI] 36.0-36.9, adult; Z60.2 Problems related to living alone; F17.210 Nicotine dependence, cigarettes, uncomplicated
CPT/HCPCS: 36415; 72131; 72146; 72148; 80048; 80053; 81001; 83036; 85007; 85025; 87077; 87086; 87186; 87426; 94760; 96372; G0378; G0379; J0360; J0696; J1030; J1100; J1170; J1650; J2360; J3490; J7030; J7509; U0003; U0005; 97110-GP; 97530-GP; 97535-GO; 99285-25

== ENCOUNTER 2021-06-15 13:02 | Inpatient (IN) | payer MEDICARE, MEDICAID ==
[~2021-06-15] VITALS: Ht 160 cm; Wt 95.5 kg
[~2021-06-15 13:02] MED LIST: ACID1TAB14 PO; ATOR40TA59 PO; CALC-497 PO; CEFD300C PO; CLON2TAB9 PO; CLONAZEPAM1 MG PO; CYCL10TA19 PO; DOCU50CA11 PO; DULO20CA PO; FENT1PAT17 TD; FLUT16SP NS; HYDR-2761 PO; HYDR-2769 PO; LACT1CAP21 PO; LEVO50TA5 PO; LISI20TA18 PO; LURA60TA PO; METH4TAB2 PO; MULT-735 PO; NALO25TA4 PO; OMEP20CA16 PO; PANT40TA77 PO; POLY17PO29 PO; PREG-9 PO; SENN8.6T11 PO; SUCR1TAB PO; TAMS0.4C97 PO; VITA400T6 PO; ZOLP5TAB5 PO; [UNRECOGNIZED DRUG - OTHER] PO; vitamin; vitamin D PO; vitamin b12 PO
[2021-06-15 16:44] LABS: BILIRUBIN,URINE NEGATIVE (NEG); CLARITY,URINE CLEAR; COLOR,URINE YELLOW; NITRITE,URINE POSITIVE (NEG); PROTEIN,URINE NEGATIVE (NEG-TRACE); UROBILINOGEN,URINE 0.2 mg/dL (0.2 mg/dL)
[2021-06-15] MEDS ORDERED: fentaNYL PF VIAL 100 MCG/2 ML VIAL IM ONE (16:45)
[2021-06-15 16:57] LABS: BACTERIA,URINE MANY /HPF (0-FEW)
[2021-06-15] MEDS ORDERED: ONDANSETRON ODT 4 MG TAB.RAPDIS. PO ONE (17:30)
--- NOTE | 2021-06-15 17:32 | RAD ---
Exam: CT head, cervical spine, thoracic spine and lumbar spine without contrast INDICATION: Fall TECHNIQUE: Sequential axial images through the head, cervical spine, thoracic spine and lumbar spine were obtained without the administration of IV contrast. Exposure: One or more of the following in the visualized dose reduction techniques were utilized for this examination: 1. Automated exposure control 2. Adjustment of the MA and/or KV according to patient size 3. Use of iterative of reconstructive technique Comparisons: 05/27/2021 FINDINGS: Head: No focal parenchymal lesion or hemorrhage is identified. There is no midline shift or sulcal effaceme nt. Mild patchy hypodensity in the periventricular white matter, similar to prior. No acute vascular terr itory infarction is identified. Carver-white distinction is preserved. The ventricular system is within normal limits without compression hydrocephalus. The basal cisterns are well maintained. The visualized portions of the paranasal sinuses and mastoid air cells are well-pneumatized. No acute fractures. Cervical spine: Straightening of cervical spine which may positional. Vertebral body heights are well-maintained. No significant spondylotic change in the cervical spine. Fracture to the cervical spine is not identified. Visualized paraspinal soft tissues are unremarkable. Thoracic spine: Vertebral body heights and alignment are well-maintained. Fracture to the thoracic spine is not identified. Minimal degenerative disc disease noted in the mid and lower thoracic spine without significant neuro foraminal or spinal canal stenosis. Visualized paraspinal soft tissues are unremarkable. Lumbar spine: Vertebral body heights and alignment are well-maintained. Fracture to the lumbar spine is not identified. There is a calcified central disc bulge at T12-L1 causing mild spinal canal stenosis. Laminotomy changes at L3 and L4 on the left. Visualized paraspinal soft tissues are unremarkable. IMPRESSION: 1. No acute intracranial abnormality. 2. Negative CT C-spine for acute traumatic injury. 3. Negative CT T spine for acute traumatic injury. 4. Negative CT lumbar spine for acute traumatic injury. Spondylotic changes as described above. Electronically signed by: Lindy Burroughs MD (06/15/2021 5:30 PM) [facility]
--- NOTE | 2021-06-15 17:44 | RAD ---
EXAM: 3 views bilateral elbows DATE: 06/15/2021 5:25 PM INDICATION: Reason: fall / Spl. Instructions: / History: COMPARISON: No Prior FINDINGS: Right elbow: No elbow joint effusion. No acute fracture or dislocation. Mild degenerative changes No significant s oft tissue swelling . Left elbow: No elbow joint effusion. No acute fracture or dislocation. Mild degenerative changes No significant s oft tissue swelling. IMPRESSION: No acute fracture or dislocation of bilateral elbows. Electronically signed by: Keaton White DO (06/15/2021 5:42 PM) [id number]
[2021-06-15] MEDS ORDERED: LIDOCAINE 1% PF 2 ML VIAL. INJ ONE (17:45)
[2021-06-15] MEDS ORDERED: cefTRIAXone IM 1 GM VIAL IM ONE (17:45)
--- NOTE | 2021-06-15 18:21 | RAD ---
Study: XR KNEE _4 VIEWS WITH PATELLA_LT Indication: Fall. Comparison: 05/27/2021 Findings: Taking into consideration osteopenia, no acute fracture. Severe arthrosis again noted at the patellof emoral compartment and less pronounced degenerative changes at the femorotibial compartments. No larg e joint effusion. Chronic focus of ossification again noted projecting along the upper/lateral margin of the patella. Impression: No radiographic evidence for an acute fracture. No significant change from 05/27/2021 with chronic ob servations discussed above. Electronically signed by: GABY ADLER MD (06/15/2021 6:19 PM) [facility]
[2021-06-15] MEDS ORDERED: cloNIDine HCL 0.1 MG TABLET PO ONE (18:45)
[2021-06-15 19:29] LABS: AMPHETAMINE/METHAMPHETAMINE NEG (NEG); BARBITURATES NEG (NEG); BENZODIAZEPINES POS (NEG); CANNABINOIDS NEG (NEG); COCAINE NEG (NEG); METHADONE NEG (NEG); OPIATES POS (NEG); PHENCYCLIDINE NEG (NEG)
[2021-06-15] MEDS ORDERED: hydrALAZINE 20 MG/ML VIAL. IVP ONE (20:00)
--- NOTE | 2021-06-15 20:41 | PHYS DOC ---
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 Patient states she was getting out of her bed and she slipped and fell. Denies hitting her head on the ground. She states she landed on her left knee. Patient denies any loss of consciousness. She is complaining of neck pain, left knee pain, bilateral elbow pain. Rates the pain a 10 out of 10. She appears lethargic and states she is on Klonopin, Cymbalta, Ambien fentanyl patches hydrocodone among other medicines. Patient is a poor historian, patient most of the information is obtained from putting pieces of stories she is saying together. She also states she thinks she has a UTI because that is what happens when she falls Review of Systems: Review of Systems: Constitutional: Denies fever or chills. [] Eyes: Denies change in visual acuity. [] HENT: Denies nasal congestion or sore throat. [] Respiratory: Denies cough or shortness of breath. [] Cardiovascular: Denies chest pain or edema. [] GI: Denies abdominal pain, nausea, vomiting, bloody stools or diarrhea. [] : Denies dysuria. [] Musculoskeletal: Reports bilateral elbow pain, left knee pain, neck pain Integument: Denies rash. [] Neurologic: Denies headache, focal weakness or sensory changes. [] Psychiatric: Denies depression or anxiety. [] Heart Score: C/O Chest Pain: N/A Risk Factors: Risk Factors: DM, Current or recent (<one month) smoker, HTN, HLP, family history of CAD, obesity. Risk Scores: Score 0 - 3: 2.5% MACE over next 6 weeks - Discharge Home Score 4 - 6: 20.3% MACE over next 6 weeks - Admit for Clinical Observation Score 7 - 10: 72.7% MACE over next 6 weeks - Early Invasive Strategies Current Medications: Current Medications Medications (Trade) Dose Ordered Sig/Bennie Start Time Stop Time Status Last Admin Dose Admin Ceftriaxone Sodium (Rocephin Im) 1 gm 1X ONCE 06/15/21 17:45 06/15/21 17:46 DC 06/15/21 19:13 1 GM Clonidine HCl (Catapres) 0.2 mg 1X ONCE 06/15/21 18:45 06/15/21 18:46 DC 06/15/21 19:16 0.2 MG Fentanyl Citrate (Fentanyl 2ml Vial) 50 mcg 1X ONCE 06/15/21 16:45 06/15/21 16:46 DC 06/15/21 17:14 50 MCG Hydralazine HCl (Apresoline Inj) 10 mg 1X ONCE 06/15/21 20:00 06/15/21 20:01 DC Lidocaine HCl (Xylocaine-Mpf 1% 2ml Vial) 2 ml 1X ONCE 06/15/21 17:45 06/15/21 17:46 DC 06/15/21 19:16 2 ML Ondansetron HCl (Zofran Odt) 4 mg 1X ONCE 06/15/21 17:30 06/15/21 17:31 DC 06/15/21 19:14 4 MG Allergies: Allergies: Allergies Coded Allergies Type Severity Reaction Last Updated Verified No Known Drug Allergies 01/25/21 No Physical Exam: PE: Constitutional: Well developed, well nourished, no acute distress, non-toxic appearance. [] HENT: Normocephalic, atraumatic, bilateral external ears normal, oropharynx moist, no oral exudates, nose normal. [] Eyes: PERRLA, EOMI, conjunctiva normal, no discharge. [] Neck: Normal range of motion, no tenderness, supple, no stridor. [] Cardiovascular:Heart rate regular rhythm, no murmur [] Lungs & Thorax: Bilateral breath sounds clear to auscultation [] Abdomen: Bowel sounds normal, soft, no tenderness, no masses, no pulsatile masses. [] Skin: Warm, dry, no erythema, no rash. [] Back: No tenderness, no CVA tenderness. [] Extremities: Right below the knee amputation, slight bruising noted on the left knee, no bruising or tenderness noted on bilateral upper extremities no tenderness, no cyanosis, no clubbing, ROM intact, no edema. [] Neurologic: Alert and oriented X 3, normal motor function, normal sensory function, no focal deficits noted. [] Psychologic: Flat affect, depressed mood, mean Current Patient Data: Labs: Laboratory Tests Test 06/15/21 16:37 Urine Collection Type Unknown Urine Color Yellow Urine Clarity Clear Urine pH 6.0 (<5.0-8.0) Urine Specific [place] 1.015 (1.000-1.030) Urine Protein Negative mg/dL (NEG-TRACE) Urine Glucose (UA) Negative mg/dL (NEG) Urine Ketones (Stick) 15 mg/dL (NEG) Urine Blood Negative (NEG) Urine Nitrite Positive (NEG) Urine Bilirubin Negative (NEG) Urine Urobilinogen Dipstick 0.2 mg/dL (0.2 mg/dL) Urine Leukocyte Esterase Small (NEG) Urine RBC 1-2 /HPF (0-2) Urine WBC 5-10 /HPF (0-4) Urine Squamous Epithelial Cells Few /LPF Urine Bacteria Many /HPF (0-FEW) Urine Mucus Slight /LPF Urine Opiates Screen Pos (NEG) Urine Methadone Screen Neg (NEG) Urine Barbiturates Neg (NEG) Urine Phencyclidine Screen Neg (NEG) Urine Amphetamine/Methamphetamine Neg (NEG) Urine Benzodiazepines Screen Pos (NEG) Urine Cocaine Screen Neg (NEG) Urine Cannabinoids Screen Neg (NEG) Urine Ethyl Alcohol Neg (NEG) Vital Signs: Vital Signs Date Time Temp Pulse Resp B/P (MAP) Pulse Ox O2 Delivery O2 Flow Rate FiO2 06/15/21 19:16 88 238/100 06/15/21 17:14 18 98 Room Air 06/15/21 14:50 98.0 98.0 EKG: EKG: [] Radiology/Procedures: Radiology/Procedures: []PROCEDURE: CT THORACIC SPINE WO CONTRAST Exam: CT head, cervical spine, thoracic spine and lumbar spine without contrast INDICATION: Fall TECHNIQUE: Sequential axial images through the head, cervical spine, thoracic spine and lumbar spine were obtained without the administration of IV contrast. Exposure: One or more of the following in the visualized dose reduction techniques were utilized for this examination: 1. Automated exposure control 2. Adjustment of the MA and/or KV according to patient size 3. Use of iterative of reconstructive technique Comparisons: 05/27/2021 FINDINGS: Head: No focal parenchymal lesion or hemorrhage is identified. There is no midline shift or sulcal effacement. Mild patchy hypodensity in the periventricular white matter, similar to prior. No acute vascular territory infarction is identified. Carver-white distinction is preserved. The ventricular system is within normal limits without compression hydrocephalus. The basal cisterns are well maintained. The visualized portions of the paranasal sinuses and mastoid air cells are well- pneumatized. No acute fractures. Cervical spine: Straightening of cervical spine which may positional. Vertebral body heights are well-maintained. No significant spondylotic change in the cervical spine. Fracture to the cervical spine is not identified. Visualized paraspinal soft tissues are unremarkable. Thoracic spine: Vertebral body heights and alignment are well-maintained. Fracture to the thoracic spine is not identified. Minimal degenerative disc disease noted in the mid and lower thoracic spine without significant neuroforaminal or spinal canal stenosis. Visualized paraspinal soft tissues are unremarkable. Lumbar spine: Vertebral body heights and alignment are well-maintained. Fracture to the lumbar spine is not identified. There is a calcified central disc bulge at T12-L1 causing mild spinal canal stenosis. Laminotomy changes at L3 and L4 on the left. Visualized paraspinal soft tissues are unremarkable. IMPRESSION: 1. No acute intracranial abnormality. 2. Negative CT C-spine for acute traumatic injury. 3. Negative CT T spine for acute traumatic injury. 4. Negative CT lumbar spine for acute traumatic injury. Spondylotic changes as described above. Electronically signed by: Lindy Vergara MD (06/15/2021 5:30 PM) [facility] DICTATED and SIGNED BY: LINDY VERGARA MD DATE: 06/15/21 [id number] 0 Course & Med Decision Making: Course & Med Decision Making Pertinent Labs and Imaging studies reviewed. (See chart for details) This is a 60-year-old female patient with a right knee amputation presenting t taya to be evaluated after falling. Patient is complaining of left knee pain bilateral elbow pain and states she could have a UTI. CT of the head, cervical spine, thoracic and lumbar spine are negative for any acute findings. Positive for UTI-was given Rocephin Blood pressure was 191/84 with heart rate in the 80s she states she is on blood pressure medicines, does not know the names and did not take her medicines today. She was given clonidine. I spoke to patient about going home if her blood pressure comes down, she states she has nowhere to go to. She states she does not have a home. She initially stated she has a mother but she does not remember the mother's contact, neither did she remember the doctor's phone number I called the patient's daughter she states patient lives in a senior independent living community and she has PT, OT, and the home health nurse. Patient continues to state she is not going to leave. She states she needs to be admitted she has nowhere to go to. CBC with a WBC of 3.6, patient states she is Covid positive and was diagnosed 2 weeks ago Spoke with Dr. Pierce who accepted patient for admission Jacqueline Disclaimer: Jacqueline Disclaimer: This electronic medical record was generated, in whole or in part, using a voice recognition dictation system. Departure Departure Impression: Primary Impression: UTI (urinary tract infection) Qualified Codes: N39.0 - Urinary tract infection, site not specified Additional Impression: Fall Qualified Codes: W19.XXXA - Unspecified fall, initial encounter Disposition: ADMITTED INPATIENT Condition: STABLE Referrals: NO PCP (PCP) JENNIFER DAVID DEPUTY SHERIFF GENERALIST/BAILIFF Jun 15, 2021 20:41
[2021-06-15 21:22] LABS: BASO % 1 % (0-3); EOS % 0 % (0-3); HEMATOCRIT 37.7 % (36.0-47.0); HEMOGLOBIN 12.4 g/dL (12.0-15.5); LYMPH # 0.4 x10^3/uL (1.0-4.8); LYMPH % 10 % (24-48); MEAN CORPUSCULAR HEMOGLOBIN 29 pg (25-35); MEAN CORPUSCULAR HGB CONC 33 g/dL (31-37); MEAN CORPUSCULAR VOLUME 88 fL (79-100); MONO # 0.5 x10^3/uL (0.0-1.1); MONO % 13 % (0-9); NEUT # 2.7 x10^3/uL (1.8-7.7); NEUT % 76 % (31-73); PLATELET COUNT 233 x10^3/uL (140-400); RED BLOOD COUNT 4.29 x10^6/uL (3.50-5.40); WHITE BLOOD COUNT 3.6 x10^3/uL (4.0-11.0)
[2021-06-15 22:23] LABS: CALCIUM 8.1 mg/dL (8.5-10.1); CREATININE 0.7 mg/dL (0.6-1.0); GFR 84.8; POTASSIUM 3.9 mmol/L (3.5-5.1)
[2021-06-15 22:29] LABS: ALBUMIN 2.9 g/dL (3.4-5.0); TOTAL BILIRUBIN 0.2 mg/dL (0.2-1.0); TOTAL PROTEIN 5.7 g/dL (6.4-8.2)
[2021-06-15] MEDS ORDERED: fentaNYL PF VIAL 100 MCG/2 ML VIAL IVP PRN (23:00)
[2021-06-15] MEDS ORDERED: ACETAMINOPHEN 325 MG TABLET. PO PRN (23:00)
[2021-06-15] MEDS ORDERED: ONDANSETRON PF 4 MG/2 ML VIAL. IVP PRN (23:00)
--- NOTE | 2021-06-16 08:01 | PDOC1 ---
History and Physical Date of Service: DOS: DATE: 06/16/21 TIME: 07:53 Chief Complaint: Chief Complain: Fall History of Present Illness: HPI: History obtained from discussion with the ED physician and chart review: 60 year old female with history of hypertension, depression, right below the knee amputation from an infected knee after knee scope, bipolar, hypothyroidism, osteoporosis, who presents the ED today to be evaluated after falling. Patient states she was getting out of her bed and she slipped and fell. Denies hitting her head on the ground. She states she landed on her left knee. Patient denies any loss of consciousness. She is complaining of neck pain, left knee pain, bilateral elbow pain. Rates the pain a 10 out of 10. She appears lethargic and states she is on Klonopin, Cymbalta, Ambien fentanyl patches hydrocodone among other medicines. Patient is a poor historian, patient most of the information is obtained from putting pieces of stories she is saying together. She also states she thinks she has a UTI because that is what happens when she falls Past Medical/Surgical History: PMH/PSH: Past Medical Histor: OSTEOPOROSIS, SLIPPED DISCS, MRSA Past Surgical History: , Hip Replacement, Tonsillectomy, R knee amputation, KIDNEY STONE, GASTRIC BYPASS Allergies: Allergies: Coded Allergies: No Known Drug Allergies (Unverified , 01/25/21) Family History: Family History: Reviewed with no relevant findings in the chart Social History: Social History: Smoking Status: Never Smoker Alcohol Use: None Current Medications: Current Medications Current Medications Fentanyl Citrate (Fentanyl 2ml Vial) 50 mcg 1X ONCE IM Last administered on 06/15/21at 17:14; Start 06/15/21 at 16:45; Stop 06/15/21 at 16:46; Status DC Ondansetron HCl (Zofran Odt) 4 mg 1X ONCE PO Last administered on 06/15/21at 19:14; Start 06/15/21 at 17:30; Stop 06/15/21 at 17:31; Status DC Ceftriaxone Sodium (Rocephin Im) 1 gm 1X ONCE IM Last administered on 06/15/21at 19:13; Start 06/15/21 at 17:45; Stop 06/15/21 at 17:46; Status DC Lidocaine HCl (Xylocaine-Mpf 1% 2ml Vial) 2 ml 1X ONCE INJ Last administered on 06/15/21at 19:16; Start 06/15/21 at 17:45; Stop 06/15/21 at 17:46; Status DC Clonidine HCl (Catapres) 0.2 mg 1X ONCE PO Last administered on 06/15/21at 19:16; Start 06/15/21 at 18:45; Stop 06/15/21 at 18:46; Status DC Hydralazine HCl (Apresoline Inj) 10 mg 1X ONCE IVP ; Start 06/15/21 at 20:00; Stop 06/15/21 at 20:01; Status DC Lorazepam (Ativan Inj) 1 mg 1X ONCE IVP Last administered on 06/15/21at 21:51; Start 06/15/21 at 21:30; Stop 06/15/21 at 21:31; Status DC Ondansetron HCl (Zofran) 4 mg PRN Q8HRS PRN IVP NAUSEA/VOMITING 1ST CHOICE; Start 06/15/21 at 23:00; Stop 06/16/21 at 22:59 Fentanyl Citrate (Fentanyl 2ml Vial) 50 mcg PRN Q1HR PRN IVP SEVERE PAIN 7-10; Start 06/15/21 at 23:00; Stop 06/16/21 at 22:59 Acetaminophen (Tylenol) 650 mg PRN Q4HRS PRN PO FEVER > 100.3'F; Start 06/15/21 at 23:00; Stop 06/16/21 at 22:59 Active Scripts Active Cefdinir 300 Mg Capsule 300 Mg PO BID 2 Days Hydrocodone-Apap 10-325 (Hydrocodone Bit/Acetaminophen) 1 Tab Tablet 1 Tab PO PRN Q6-8HRS PRN 5 Days Reported Cyclobenzaprine Hcl 10 Mg Tablet 1 Tab PO TID Miralax (Polyethylene Glycol 3350) 17 Gm Powd.pack 1 Packet PO DAILY 2 Days dissolve in water Protonix (Pantoprazole Sodium) 40 Mg Tablet.dr 40 Mg PO DAILYAC Zolpidem Tartrate 5 Mg Tablet 10 Mg PO QHS PRN Vitamin E (Vitamin E Mixed) 400 Unit Tablet 200 Unit PO DAILY [vitamin D] 1,000 Intlu PO DAILY [vitamin b12] 500 Mcg PO DAILY Flomax (Tamsulosin Hcl) 0.4 Mg Cap.er.24h 0.4 Mg PO DAILY Senna Laxative (Sennosides) 8.6 Mg Tablet 2 Tab PO BID 30 Days Trang-Bid Caplet (Acidoph/L.bulg/Bif.b/S.thermop) 1 Each Tablet 1 Each PO DAILY Lyrica (Pregabalin) 75 Mg Capsule 75 Mg PO BID One-Daily Multi-Vitamin (Multivitamin) 1 Each Tablet 1 Tab PO DAILY 30 Days Movantik (Naloxegol Oxalate) 25 Mg Tablet 25 Mg PO DAILY Lisinopril 20 Mg Tablet 1 Tab PO DAILY Levothyroxine Sodium 50 Mcg Tablet 1 Tab PO DAILY Latuda (Lurasidone Hcl) 60 Mg Tablet 60 Mg PO DAILY Culturelle (Lactobacillus Rhamnosus Gg) 1 Each Capsule 1 Cap PO DAILY 30 Days Cymbalta (Duloxetine Hcl) 20 Mg Capsule.dr 20 Mg PO BID Colace Clear (Docusate Sodium) 50 Mg Capsule 1 Cap PO BID 30 Days FENTANYL 50mcg/hr (Fentanyl) 1 Each Patch.td72 1 Patch TD Q72H Clonazepam 2 Mg Tablet 2 Mg PO HS Clonazepam 1 Mg Tablet 1 Mg PO TID Calcium 600 + Vit D3 Caplet (Calcium Carbonate/Vitamin D3) 1 Each Tablet 1 Tab PO BID 30 Days Atorvastatin Calcium 40 Mg Tablet 40 Mg PO HS ROS: Review of Systems Review of System REVIEW OF SYSTEMS: GENERAL: Pain throughout the body SKIN: No bruising, hair changes or rashes. EYES: No blurred, double or loss of vision. NOSE AND THROAT: No history of nosebleeds, hoarseness or sore throat. HEART: No history of palpitations, chest pain or shortness of breath on exertion. LUNGS: Denies cough, hemoptysis, wheezing or shortness of breath. GASTROINTESTINAL: Denies changes in appetite, nausea, vomiting, diarrhea or constipation. GENITOURINARY: No history of frequency, urgency, hesitancy or nocturia. NEUROLOGIC: Denies history of numbness, tingling, or tremor. PSYCHIATRIC: No history of panic, anxiety or depression. ENDOCRINE: No history of heat or cold intolerance, polyuria or polydipsia. EXTREMITIES: Denies joint pain, pain on walking or stiffness. Physical Exam: Vital Signs: Vital Signs Date Time Temp Pulse Resp B/P (MAP) Pulse Ox O2 Delivery O2 Flow Rate FiO2 06/16/21 06:30 62 16 153/74 (100) 93 Room Air 1/3/22 14:50 98.0 98.0 Physcial Exam: General: Well developed, well nourished, no acute distress, well appearing HEENT: Pupils equally round and reactive to light, EOMI, no discharge, normal conjunctiva Neck: Supple, no nuchal rigidity, no JVD, trachea midline, no tenderness Cardiac: RRR, no murmurs, no gallops, no rubs Chest/Lungs: CTAB, no wheeze, no rhonchi, no crackles Abdomen: soft, non-distended, no guarding, no peritoneal signs, non-tender Back: No tenderness Extremities: Right below the knee amputation, slight bruising noted on the left knee, no bruising or tenderness noted on bilateral upper extremities no tenderness, no cyanosis, no clubbing, ROM intact, no edema Neuro: Alert and oriented x 4, no focal deficits, normal speech Labs: Labs: Laboratory Tests Test 06/15/21 16:37 06/15/21 21:10 06/15/21 22:00 Urine Collection Type Unknown Urine Color Yellow Urine Clarity Clear Urine pH 6.0 (<5.0-8.0) Urine Specific [place] 1.015 (1.000-1.030) Urine Protein Negative mg/dL (NEG-TRACE) Urine Glucose (UA) Negative mg/dL (NEG) Urine Ketones (Stick) 15 mg/dL (NEG) Urine Blood Negative (NEG) Urine Nitrite Positive (NEG) Urine Bilirubin Negative (NEG) Urine Urobilinogen Dipstick 0.2 mg/dL (0.2 mg/dL) Urine Leukocyte Esterase Small (NEG) Urine RBC 1-2 /HPF (0-2) Urine WBC 5-10 /HPF (0-4) Urine Squamous Epithelial Cells Few /LPF Urine Bacteria Many /HPF (0-FEW) Urine Mucus Slight /LPF Urine Opiates Screen Pos (NEG) Urine Methadone Screen Neg (NEG) Urine Barbiturates Neg (NEG) Urine Phencyclidine Screen Neg (NEG) Urine Amphetamine/Methamphetamine Neg (NEG) Urine Benzodiazepines Screen Pos (NEG) Urine Cocaine Screen Neg (NEG) Urine Cannabinoids Screen Neg (NEG) Urine Ethyl Alcohol Neg (NEG) White Blood Count 3.6 x10^3/uL (4.0-11.0) Red Blood Count 4.29 x10^6/uL (3.50-5.40) Hemoglobin 12.4 g/dL (12.0-15.5) Hematocrit 37.7 % (36.0-47.0) Mean Corpuscular Volume 88 fL (79-100) Mean Corpuscular Hemoglobin 29 pg (25-35) Mean Corpuscular Hemoglobin Concent 33 g/dL (31-37) Red Cell Distribution Width 14.0 % (11.5-14.5) Platelet Count 233 x10^3/uL (140-400) Neutrophils (%) (Auto) 76 % (31-73) Lymphocytes (%) (Auto) 10 % (24-48) Monocytes (%) (Auto) 13 % (0-9) Eosinophils (%) (Auto) 0 % (0-3) Basophils (%) (Auto) 1 % (0-3) Neutrophils # (Auto) 2.7 x10^3/uL (1.8-7.7) Lymphocytes # (Auto) 0.4 x10^3/uL (1.0-4.8) Monocytes # (Auto) 0.5 x10^3/uL (0.0-1.1) Eosinophils # (Auto) 0.0 x10^3/uL (0.0-0.7) Basophils # (Auto) 0.0 x10^3/uL (0.0-0.2) Sodium Level 138 mmol/L (136-145) Potassium Level 3.9 mmol/L (3.5-5.1) Chloride Level 104 mmol/L (98-107) Carbon Dioxide Level 23 mmol/L (21-32) Anion Gap 11 (6-14) Blood Urea Nitrogen 6 mg/dL (7-20) Creatinine 0.7 mg/dL (0.6-1.0) Estimated GFR (Cockcroft-Gault) 84.8 BUN/Creatinine Ratio 9 (6-20) Glucose Level 102 mg/dL (70-99) Calcium Level 8.1 mg/dL (8.5-10.1) Total Bilirubin 0.2 mg/dL (0.2-1.0) Aspartate Amino Transf (AST/SGOT) 64 U/L (15-37) Alanine Aminotransferase (ALT/SGPT) 43 U/L (14-59) Alkaline Phosphatase 101 U/L (46-116) Total Protein 5.7 g/dL (6.4-8.2) Albumin 2.9 g/dL (3.4-5.0) Albumin/Globulin Ratio 1.0 (1.0-1.7) Laboratory Tests Test 06/15/21 16:37 06/15/21 21:10 06/15/21 22:00 Urine Collection Type Unknown Urine Color Yellow Urine Clarity Clear Urine pH 6.0 (<5.0-8.0) Urine Specific [place] 1.015 (1.000-1.030) Urine Protein Negative mg/dL (NEG-TRACE) Urine Glucose (UA) Negative mg/dL (NEG) Urine Ketones (Stick) 15 mg/dL (NEG) Urine Blood Negative (NEG) Urine Nitrite Positive (NEG) Urine Bilirubin Negative (NEG) Urine Urobilinogen Dipstick 0.2 mg/dL (0.2 mg/dL) Urine Leukocyte Esterase Small (NEG) Urine RBC 1-2 /HPF (0-2) Urine WBC 5-10 /HPF (0-4) Urine Squamous Epithelial Cells Few /LPF Urine Bacteria Many /HPF (0-FEW) Urine Mucus Slight /LPF Urine Opiates Screen Pos (NEG) Urine Methadone Screen Neg (NEG) Urine Barbiturates Neg (NEG) Urine Phencyclidine Screen Neg (NEG) Urine Amphetamine/Methamphetamine Neg (NEG) Urine Benzodiazepines Screen Pos (NEG) Urine Cocaine Screen Neg (NEG) Urine Cannabinoids Screen Neg (NEG) Urine Ethyl Alcohol Neg (NEG) White Blood Count 3.6 x10^3/uL (4.0-11.0) Red Blood Count 4.29 x10^6/uL (3.50-5.40) Hemoglobin 12.4 g/dL (12.0-15.5) Hematocrit 37.7 % (36.0-47.0) Mean Corpuscular Volume 88 fL (79-100) Mean Corpuscular Hemoglobin 29 pg (25-35) Mean Corpuscular Hemoglobin Concent 33 g/dL (31-37) Red Cell Distribution Width 14.0 % (11.5-14.5) Platelet Count 233 x10^3/uL (140-400) Neutrophils (%) (Auto) 76 % (31-73) Lymphocytes (%) (Auto) 10 % (24-48) Monocytes (%) (Auto) 13 % (0-9) Eosinophils (%) (Auto) 0 % (0-3) Basophils (%) (Auto) 1 % (0-3) Neutrophils # (Auto) 2.7 x10^3/uL (1.8-7.7) Lymphocytes # (Auto) 0.4 x10^3/uL (1.0-4.8) Monocytes # (Auto) 0.5 x10^3/uL (0.0-1.1) Eosinophils # (Auto) 0.0 x10^3/uL (0.0-0.7) Basophils # (Auto) 0.0 x10^3/uL (0.0-0.2) Sodium Level 138 mmol/L (136-145) Potassium Level 3.9 mmol/L (3.5-5.1) Chloride Level 104 mmol/L (98-107) Carbon Dioxide Level 23 mmol/L (21-32) Anion Gap 11 (6-14) Blood Urea Nitrogen 6 mg/dL (7-20) Creatinine 0.7 mg/dL (0.6-1.0) Estimated GFR (Cockcroft-Gault) 84.8 BUN/Creatinine Ratio 9 (6-20) Glucose Level 102 mg/dL (70-99) Calcium Level 8.1 mg/dL (8.5-10.1) Total Bilirubin 0.2 mg/dL (0.2-1.0) Aspartate Amino Transf (AST/SGOT) 64 U/L (15-37) Alanine Aminotransferase (ALT/SGPT) 43 U/L (14-59) Alkaline Phosphatase 101 U/L (46-116) Total Protein 5.7 g/dL (6.4-8.2) Albumin 2.9 g/dL (3.4-5.0) Albumin/Globulin Ratio 1.0 (1.0-1.7) Images: Images PROCEDURE: ELBOW BILAT 3V IMPRESSION: No acute fracture or dislocation of bilateral elbows. PROCEDURE: CT HEAD AND CERVICAL SPINE WO Exam: CT head, cervical spine, thoracic spine and lumbar spine without contrast INDICATION: Fall TECHNIQUE: Sequential axial images through the head, cervical spine, thoracic spine and lumbar spine were obtained without the administration of IV contrast. Exposure: One or more of the following in the visualized dose reduction techniques were utilized for this examination: 1. Automated exposure control 2. Adjustment of the MA and/or KV according to patient size 3. Use of iterative of reconstructive technique Comparisons: 05/27/2021 FINDINGS: Head: No focal parenchymal lesion or hemorrhage is identified. There is no midline shift or sulcal effacement. Mild patchy hypodensity in the periventricular white matter, similar to prior. No acute vascular territory infarction is identified. Carver-white distinction is preserved. The ventricular system is within normal limits without compression hydro cephalus. The basal cisterns are well maintained. The visualized portions of the paranasal sinuses and mastoid air cells are well- pneumatized. No acute fractures. Cervical spine: Straightening of cervical spine which may positional. Vertebral body heights are well-maintained. No significant spondylotic change in the cervical spine. Fracture to the cervical spine is not identified. Visualized paraspinal soft tissues are unremarkable. Thoracic spine: Vertebral body heights and alignment are well-maintained. Fracture to the thoracic spine is not identified. Minimal degenerative disc disease noted in the mid and lower thoracic spine without significant neuroforaminal or spinal canal stenosis. Visualized paraspinal soft tissues are unremarkable. Lumbar spine: Vertebral body heights and alignment are well-maintained. Fracture to the lumbar spine is not identified. There is a calcified central disc bulge at T12-L1 causing mild spinal canal stenosis. Laminotomy changes at L3 and L4 on the left. Visualized paraspinal soft tissues are unremarkable. IMPRESSION: 1. No acute intracranial abnormality. 2. Negative CT C-spine for acute traumatic injury. 3. Negative CT T spine for acute traumatic injury. 4. Negative CT lumbar spine for acute traumatic injury. Spondylotic changes as described above. Assessment/Plan Assessment/Plan Acute cystitis Hypertensive urgency Mechanical fall Debilitation Failure to thrive History of right AKA Morbid obesity Admit to hospitalist service for further management Continue empiric IV antibiotics Pending urine cultures IV antihypertensive regimens to maintain systolic blood pressure less than 180 Fall precautions Nutrition consult Social work consult Try to convince patient to go to nursing facility Lovenox for DVT prophylaxis Cardiac diet CODE STATUS full Discussed with RN and SW Disposition inpatient management as above DPOA: Daughter Justifications for Admission Other Justification intractable lumbar radiculopathy TEE WILCOX MD Jun 16, 2021 08:01
[2021-06-16 08:14] VITALS: BP 102/69
[2021-06-16] MEDS ORDERED: SENNOSIDES 8.6 MG TABLET PO PRN (08:15)
[2021-06-16] MEDS ORDERED: LORazepam 0.5 MG TABLET PO PRN (08:15)
[2021-06-16] MEDS ORDERED: ACETAMINOPHEN 325 MG TABLET. PO PRN (08:15)
[2021-06-16] MEDS ORDERED: diphenhydrAMINE HCL 25 MG CAPSULE PO PRN ×2 (08:15)
[2021-06-16] MEDS ORDERED: DEXTROSE 50% 25 GM / 50ML DISP.SYRIN. IV PRN (08:15)
[2021-06-16] MEDS ORDERED: DOCUSATE SODIUM 100 MG CAPSULE. PO PRN (08:15)
[2021-06-16] MEDS ORDERED: HYDROcodone/APAP 5/325MG 1 TAB TABLET PO PRN (08:15)
[2021-06-16] MEDS ORDERED: diphenhydrAMINE 50 MG/ML VIAL IVP PRN (08:15)
[2021-06-16] MEDS ORDERED: CYCLOBENZAPRINE 10 MG TABLET. PO PRN (10:15)
[2021-06-16] MEDS: IV NORMAL SALINE 1000ML BAG 1,000 ML IV SCH ×2 (10:45→21:52)
[2021-06-16] MEDS: clonazePAM 0.5 MG TABLET PO SCH ×3 (10:48→20:22)
[2021-06-16] MEDS: PANTOPRAZOLE 40 MG TABLET.DR. PO SCH (10:48)
[2021-06-16] MEDS: LACTOBACILLUS RHAMNOSUS GG 1 CAPSULE. PO SCH (10:48)
[2021-06-16] MEDS: SENNOSIDES 8.6 MG TABLET PO SCH ×2 (10:48→20:22)
[2021-06-16] MEDS: PREGABALIN 75 MG CAPSULE PO SCH ×2 (10:49→20:23)
[2021-06-16] MEDS: DULoxetine HCL 20 MG CAPSULE.DR PO SCH ×2 (10:50→20:22)
[2021-06-16] MEDS: HYDROcodone/APAP 5/325MG 1 TAB TABLET PO PRN ×3 (10:50→21:48)
[2021-06-16] MEDS: LEVOTHYROXINE 50 MCG TABLET PO SCH (10:52)
[2021-06-16] MEDS: ENOXAPARIN 40 MG/0.4 ML SYRINGE. SQ SCH (10:54)
[2021-06-16 11:00] VITALS: BP 134/78
[2021-06-16] MEDS: LISINOPRIL 20 MG TABLET PO SCH (11:00)
[2021-06-16] MEDS: LURASIDONE 40 MG TABLET. PO SCH (11:00)
[2021-06-16] MEDS: POLYETHYLENE GLYCOL 3350 17 GM PACKET. PO SCH (11:00)
[2021-06-16 15:00] VITALS: BP 124/69
[2021-06-16] MEDS: cefTRIAXone IV Push 1 GM VIAL. IVP SCH (16:28)
[2021-06-16] MEDS: PROCHLORPERAZINE 10 MG/2 ML VIAL. IV PRN (17:20)
[2021-06-16] MEDS: fentaNYL 50MCG/HR PATCH 1 PATCH PATCH.TD72 TD SCH (17:29)
[2021-06-16 19:32] VITALS: BP 153/75
[2021-06-16] MEDS: ATORVASTATIN CALCIUM 40 MG TABLET. PO SCH (20:22)
[2021-06-16] MEDS: ZOLPIDEM 5 MG TABLET. PO PRN (20:26)
[2021-06-16 22:25] VITALS: BP 150/71
[2021-06-16] MEDS: guaiFENesin DM 200MG/20MG 10 ML SYRUP PO PRN (22:25)
[2021-06-17 02:29] VITALS: BP 152/83
[2021-06-17] MEDS: guaiFENesin DM 200MG/20MG 10 ML SYRUP PO PRN ×2 (03:05→20:15)
[2021-06-17] MEDS: HYDROcodone/APAP 5/325MG 1 TAB TABLET PO PRN ×4 (03:18→20:12)
[2021-06-17] MEDS: LEVOTHYROXINE 50 MCG TABLET PO SCH (05:43)
[2021-06-17] MEDS: IV NORMAL SALINE 1000ML BAG 1,000 ML IV SCH ×2 (05:47→16:02)
[2021-06-17 05:58] LABS: BASO % 0 % (0-3); EOS % 1 % (0-3); HEMATOCRIT 36.2 % (36.0-47.0); HEMOGLOBIN 12.4 g/dL (12.0-15.5); LYMPH # 1.1 x10^3/uL (1.0-4.8); LYMPH % 25 % (24-48); MEAN CORPUSCULAR HEMOGLOBIN 30 pg (25-35); MEAN CORPUSCULAR HGB CONC 34 g/dL (31-37); MEAN CORPUSCULAR VOLUME 87 fL (79-100); MONO # 0.7 x10^3/uL (0.0-1.1); MONO % 16 % (0-9); NEUT # 2.5 x10^3/uL (1.8-7.7); NEUT % 59 % (31-73); PLATELET COUNT 197 x10^3/uL (140-400); RED BLOOD COUNT 4.17 x10^6/uL (3.50-5.40); RED CELL DISTRIBUTION WIDTH 14.3 % (11.5-14.5); WHITE BLOOD COUNT 4.3 x10^3/uL (4.0-11.0)
[2021-06-17 06:27] LABS: CALCIUM 7.6 mg/dL (8.5-10.1); CREATININE 0.7 mg/dL (0.6-1.0); GFR 84.8; MAGNESIUM 1.9 mg/dL (1.8-2.4); PHOSPHORUS 3.4 mg/dL (2.6-4.7); POTASSIUM 3.4 mmol/L (3.5-5.1)
[2021-06-17 07:00] VITALS: BP 139/73
[2021-06-17] MEDS: clonazePAM 0.5 MG TABLET PO SCH ×4 (07:57→20:13)
[2021-06-17] MEDS: LACTOBACILLUS RHAMNOSUS GG 1 CAPSULE. PO SCH (07:57)
[2021-06-17] MEDS: DULoxetine HCL 20 MG CAPSULE.DR PO SCH ×2 (07:57→20:12)
[2021-06-17] MEDS: LURASIDONE 40 MG TABLET. PO SCH (07:58)
[2021-06-17] MEDS: SENNOSIDES 8.6 MG TABLET PO SCH ×2 (07:58→20:11)
[2021-06-17] MEDS: PREGABALIN 75 MG CAPSULE PO SCH ×2 (07:58→20:11)
[2021-06-17] MEDS: PANTOPRAZOLE 40 MG TABLET.DR. PO SCH (07:59)
[2021-06-17] MEDS: LISINOPRIL 20 MG TABLET PO SCH (08:02)
[2021-06-17] MEDS: ENOXAPARIN 40 MG/0.4 ML SYRINGE. SQ SCH (08:03)
[2021-06-17] MEDS: POLYETHYLENE GLYCOL 3350 17 GM PACKET. PO SCH (08:07)
[2021-06-17 11:00] VITALS: BP 170/83
--- NOTE | 2021-06-17 11:58 | PDOC ---
[facility] [facility] PROGRESS NOTE Date of Service DOS: DATE: 06/17/21 TIME: 11:35 Chief Complaint Chief Complaint Acute cystitis Hypertensive urgency, improved Covid 19 Mechanical fall Debilitation Failure to thrive History of right AKA Morbid obesity History of Present Illness History of Present Illness 06/17/2021 Pt seen and examined Blood pressures noted to be trending down Chart reviewed Discussed with RN Vitals/I&O Vitals/I&O: Vital Signs Date Time Temp Pulse Resp B/P (MAP) Pulse Ox O2 Delivery O2 Flow Rate FiO2 06/17/21 11:25 Room Air 06/17/21 08:02 59 139/73 06/17/21 07:00 98.3 18 96 98.3 06/17/21 03:18 2.0 I & O 06/16/21 06/16/21 06/17/21 15:00 23:00 07:00 Intake Total 1000 ml 590 ml Balance 1000 ml 590 ml Physical Exam General: Alert, Cooperative, mild distress Heart: Regular rate Lungs: Clear Abdomen: Normal bowel sounds, Soft Extremities: No clubbing Skin: No breakdown Labs Labs: Laboratory Tests Test 06/16/21 15:40 06/17/21 04:40 SARS-CoV-2 RNA (GREGORIO) Positive (Negative) White Blood Count 4.3 x10^3/uL (4.0-11.0) Red Blood Count 4.17 x10^6/uL (3.50-5.40) Hemoglobin 12.4 g/dL (12.0-15.5) Hematocrit 36.2 % (36.0-47.0) Mean Corpuscular Volume 87 fL (79-100) Mean Corpuscular Hemoglobin 30 pg (25-35) Mean Corpuscular Hemoglobin Concent 34 g/dL (31-37) Red Cell Distribution Width 14.3 % (11.5-14.5) Platelet Count 197 x10^3/uL (140-400) Neutrophils (%) (Auto) 59 % (31-73) Lymphocytes (%) (Auto) 25 % (24-48) Monocytes (%) (Auto) 16 % (0-9) Eosinophils (%) (Auto) 1 % (0-3) Basophils (%) (Auto) 0 % (0-3) Neutrophils # (Auto) 2.5 x10^3/uL (1.8-7.7) Lymphocytes # (Auto) 1.1 x10^3/uL (1.0-4.8) Monocytes # (Auto) 0.7 x10^3/uL (0.0-1.1) Eosinophils # (Auto) 0.0 x10^3/uL (0.0-0.7) Basophils # (Auto) 0.0 x10^3/uL (0.0-0.2) Sodium Level 144 mmol/L (136-145) Potassium Level 3.4 mmol/L (3.5-5.1) Chloride Level 110 mmol/L (98-107) Carbon Dioxide Level 23 mmol/L (21-32) Anion Gap 11 (6-14) Blood Urea Nitrogen 7 mg/dL (7-20) Creatinine 0.7 mg/dL (0.6-1.0) Estimated GFR (Cockcroft-Gault) 84.8 Glucose Level 95 mg/dL (70-99) Calcium Level 7.6 mg/dL (8.5-10.1) Phosphorus Level 3.4 mg/dL (2.6-4.7) Magnesium Level 1.9 mg/dL (1.8-2.4) Assessment and Plan Assessmemt and Plan Assessment: Acute cystitis Hypertensive urgency, improved Covid 19 Mechanical fall Debilitation Failure to thrive History of right AKA Morbid obesity Plan: Continue empiric IV antibiotics for UTI IV antihypertensive regimens to maintain systolic blood pressure less than 180 Added solumedrol Added Doxycycline Added multivitamin with minerals Fall precautions Nutrition consult Social work consult Try to convince patient to go to nursing facility [facility] for DVT prophylaxis Cardiac diet CODE STATUS full Disposition inpatient management as above DPOA: Daughter Comment Review of Relevant I have reviewed the following items luis (where applicable) has been applied. Medications: Current Medications Medications (Trade) Dose Ordered Sig/Bennie Route PRN Reason Start Time Stop Time Status Last Admin Dose Admin Atorvastatin Calcium (Lipitor) 40 mg HS PO 06/16/21 21:00 06/16/21 20:22 Clonazepam (KlonoPIN) 1 mg TIDWMEALS PO 06/16/21 12:00 06/17/21 11:24 Clonazepam (KlonoPIN) 2 mg HS PO 06/16/21 21:00 06/16/21 20:22 Ceftriaxone Sodium (Rocephin) 1 gm Q24H IVP 06/16/21 15:00 06/16/21 16:28 Guaifenesin (Robitussin Dm) 10 ml PRN Q4HRS PRN PO COUGH 06/16/21 22:15 06/17/21 03:05 Justifications for Admission Other Justification intractable lumbar radiculopathy SUZIE NORRIS III DO Jun 17, 2021 11:58
[2021-06-17] MEDS: DOXYCYCLINE HYCLATE 100 MG TABLET PO SCH ×2 (14:10→20:11)
[2021-06-17] MEDS: MULTIVITAMIN with MINERAL TABLET. PO SCH (14:10)
[2021-06-17] MEDS: methylPREDNISolone SOD SUCC PF 40 MG/ML VIAL. IV SCH ×2 (14:10→20:11)
[2021-06-17] MEDS: ASPIRIN CHEWABLE 81 MG TABLET. PO SCH (14:11)
[2021-06-17] MEDS: cefTRIAXone IV Push 1 GM VIAL. IVP SCH (14:12)
[2021-06-17 15:00] VITALS: BP 143/80
[2021-06-17 19:00] VITALS: BP 163/87
[2021-06-17] MEDS: ZOLPIDEM 5 MG TABLET. PO PRN (20:12)
[2021-06-17] MEDS: ATORVASTATIN CALCIUM 40 MG TABLET. PO SCH (20:12)
[2021-06-17 23:00] VITALS: BP 160/87
[2021-06-18] MEDS: HYDROcodone/APAP 5/325MG 1 TAB TABLET PO PRN ×6 (00:14→20:40)
[2021-06-18] MEDS: IV NORMAL SALINE 1000ML BAG 1,000 ML IV SCH ×3 (00:18→19:32)
[2021-06-18] MEDS: ONDANSETRON PF 4 MG/2 ML VIAL. IVP PRN ×2 (01:07→08:28)
[2021-06-18 03:00] VITALS: BP 166/74
[2021-06-18] MEDS: LEVOTHYROXINE 50 MCG TABLET PO SCH (04:11)
[2021-06-18] MEDS: guaiFENesin DM 200MG/20MG 10 ML SYRUP PO PRN ×3 (06:41→20:39)
[2021-06-18 07:00] VITALS: BP 157/68
[2021-06-18] MEDS: LACTOBACILLUS RHAMNOSUS GG 1 CAPSULE. PO SCH (08:19)
[2021-06-18] MEDS: PANTOPRAZOLE 40 MG TABLET.DR. PO SCH (08:20)
[2021-06-18] MEDS: LURASIDONE 40 MG TABLET. PO SCH (08:20)
[2021-06-18] MEDS: ASPIRIN CHEWABLE 81 MG TABLET. PO SCH (08:20)
[2021-06-18] MEDS: SENNOSIDES 8.6 MG TABLET PO SCH ×2 (08:20→20:39)
[2021-06-18] MEDS: DULoxetine HCL 20 MG CAPSULE.DR PO SCH ×2 (08:21→20:39)
[2021-06-18] MEDS: PREGABALIN 75 MG CAPSULE PO SCH ×2 (08:21→20:39)
[2021-06-18] MEDS: clonazePAM 0.5 MG TABLET PO SCH ×4 (08:21→20:39)
[2021-06-18] MEDS: DOXYCYCLINE HYCLATE 100 MG TABLET PO SCH ×2 (08:21→20:38)
[2021-06-18] MEDS: ENOXAPARIN 40 MG/0.4 ML SYRINGE. SQ SCH (08:22)
[2021-06-18] MEDS: POLYETHYLENE GLYCOL 3350 17 GM PACKET. PO SCH (08:23)
[2021-06-18] MEDS: methylPREDNISolone SOD SUCC PF 40 MG/ML VIAL. IV SCH ×2 (08:23→20:38)
[2021-06-18 08:25] LABS: BASO % 0 % (0-3); EOS % 0 % (0-3); HEMATOCRIT 38.4 % (36.0-47.0); HEMOGLOBIN 12.8 g/dL (12.0-15.5); LYMPH # 0.8 x10^3/uL (1.0-4.8); LYMPH % 30 % (24-48); MEAN CORPUSCULAR HEMOGLOBIN 29 pg (25-35); MEAN CORPUSCULAR HGB CONC 33 g/dL (31-37); MEAN CORPUSCULAR VOLUME 86 fL (79-100); MONO # 0.3 x10^3/uL (0.0-1.1); MONO % 10 % (0-9); NEUT # 1.6 x10^3/uL (1.8-7.7); NEUT % 60 % (31-73); PLATELET COUNT 169 x10^3/uL (140-400); RED BLOOD COUNT 4.45 x10^6/uL (3.50-5.40); RED CELL DISTRIBUTION WIDTH 14.4 % (11.5-14.5); WHITE BLOOD COUNT 2.6 x10^3/uL (4.0-11.0)
[2021-06-18] MEDS: MULTIVITAMIN with MINERAL TABLET. PO SCH (08:28)
[2021-06-18 08:30] LABS: CALCIUM 7.6 mg/dL (8.5-10.1); CREATININE 0.6 mg/dL (0.6-1.0); GFR 101.3; MAGNESIUM 1.8 mg/dL (1.8-2.4); POTASSIUM 3.6 mmol/L (3.5-5.1)
[2021-06-18] MEDS: LISINOPRIL 20 MG TABLET PO SCH (08:31)
[2021-06-18] MEDS ORDERED: LEVO500T9 PO (09:14)
--- NOTE | 2021-06-18 09:17 | SNU/HH DC ---
DISCHARGE WITH HOME HEALTH DISCHARGE INFORMATION: Discharge Date: Jun 18, 2021 Final Diagnosis: Problems Medical Problems: (1) Fall Status: Acute Condition on Discharge: Stable CODE STATUS: Code Status: Full HOME HEALTH: Face to Face: I certify this patient is under my care and that I, or a nurse practitioner or physician's ward assistant working with me, had a face to face encounter that meets the physician face to face encounter requirements with this patient on []. Medical Complications: Falls, HTN Intermediate For: Assess Cardiopulm Status, Assess & Educate Safety, Assess/Skilled Observatio, Medication Management, Pain Management RN For Eval/Treatment: Yes Physical Therapy For: Evalulation/Treatment Occupational Therapy For: Evaluation/Treatment Home Health Aide For: Self-care INSTALLER INTERIOR ASSEMBLIES For: Community Resources Pt Meets Homebound Status: Poor coordination w/ amb., Frequent falls w/ injury, Limited distance walking, Unable to negotiate home POST DISCHARGE ORDERS: Activity Instructions for Disc: Activity as tolerated, Avoid exertion DIET AFTER DISCHARGE: Cardiac CHECKS AFTER DISCHARGE: Checks after discharge: Check blood press - daily FOLLOW-UP: Follow up with: PCP within 2 weeks of discharge DC TO SNF LABS: CBC, CMP TREATMENT/EQUIPMENT ORDERS: Adaptive Equipment Issued: None CERTIFICATION STATEMENT: Certification Statement: Certification Statement: Based on the above finding, I certify that this patient is confined to the home and needs intermittent half-way care, physical therapy and/or speech therapy, or continues to need occupational therapy.~ This patient is under my care, and I have initiated the establishment of the plan of care.~ This patient will be followed by myself or a community physician who will periodically review the plan of care. Home Meds Active Scripts Levofloxacin (LEVOFLOXACIN) 500 Mg Tablet, 500 MG PO DAILY06 for UTI for 5 Days, #5 TAB Prov:TEE WILCOX MD 06/18/21 Hydrocodone Bit/Acetaminophen (HYDROCODONE-APAP 10-325 ) 1 Tab Tablet, 1 TAB PO PRN Q6-8HRS PRN for MODERATE TO SEVERE PAIN for 5 Days, #20 TAB Prov:TEE WILCOX MD 06/03/21 Reported Medications Cyclobenzaprine Hcl (CYCLOBENZAPRINE HCL) 10 Mg Tablet, 1 TAB PO TID for spasm, #30 TAB 05/28/21 Polyethylene Glycol 3350 (MIRALAX) 17 Gm Powd.pack, 1 PACKET PO DAILY for constipation for 2 Days, #2 PACKET 0 Refills dissolve in water 05/28/21 Pantoprazole Sodium (PROTONIX ) 40 Mg Tablet.dr, 40 MG PO DAILYAC for GERD, TAB 05/28/21 Zolpidem Tartrate (ZOLPIDEM TARTRATE) 5 Mg Tablet, 10 MG PO QHS PRN for INSOMNIA, TAB 0 Refills 01/26/21 Vitamin E Mixed (VITAMIN E) 400 Unit Tablet, 200 UNIT PO DAILY for supplement, TAB 01/26/21 [vitamin D] No Conflict Check, 1000 INTLU PO DAILY for supplement 01/26/21 [vitamin b12] No Conflict Check, 500 MCG PO DAILY for supplement 01/26/21 Tamsulosin Hcl (FLOMAX) 0.4 Mg Cap.er.24h, 0.4 MG PO DAILY for urinary, TAB 01/26/21 Sennosides (SENNA LAXATIVE) 8.6 Mg Tablet, 2 TAB PO BID for constipation for 30 Days, #120 TAB 0 Refills 01/26/21 Acidoph/L.bulg/Bif.b/S.thermop (MICHAELA-BID CAPLET) 1 Each Tablet, 1 EACH PO DAILY for GI, TAB 01/26/21 Pregabalin (LYRICA) 75 Mg Capsule, 75 MG PO BID for pain, CAP 01/26/21 Multivitamin (One-Daily Multi-Vitamin) 1 Each Tablet, 1 TAB PO DAILY for supplement for 30 Days, #30 TAB 0 Refills 01/26/21 Naloxegol Oxalate (Movantik) 25 Mg Tablet, 25 MG PO DAILY for constipation, TAB 01/26/21 Lisinopril (LISINOPRIL) 20 Mg Tablet, 1 TAB PO DAILY for HTN, #30 TAB 5 Refills 01/26/21 Levothyroxine Sodium (LEVOTHYROXINE SODIUM) 50 Mcg Tablet, 1 TAB PO DAILY for thyroid, #30 TAB 5 Refills 01/26/21 Lurasidone Hcl (LATUDA) 60 Mg Tablet, 60 MG PO DAILY for depression, TAB 01/26/21 Lactobacillus Rhamnosus Gg (CULTURELLE) 1 Each Capsule, 1 CAP PO DAILY for GI for 30 Days, #30 CAP 0 Refills 01/26/21 Duloxetine Hcl (CYMBALTA) 20 Mg Capsule.dr, 20 MG PO BID for depression/pain, CAP 01/26/21 Docusate Sodium (Colace Clear) 50 Mg Capsule, 1 CAP PO BID for constipation for 30 Days, #60 CAP 0 Refills 01/26/21 Fentanyl (FENTANYL 50mcg/hr) 1 Each Patch.td72, 1 PATCH TD Q72H for pain, PATCH 01/26/21 Clonazepam (CLONAZEPAM) 2 Mg Tablet, 2 MG PO HS for anxiety, TAB 01/26/21 Clonazepam (CLONAZEPAM) 1 Mg Tablet, 1 MG PO TID for FOR ANXIETY, TAB 01/26/21 Calcium Carbonate/Vitamin D3 (Calcium 600 + Vit D3 Caplet) 1 Each Tablet, 1 TAB PO BID for supplemement for 30 Days, #60 TAB 0 Refills 01/26/21 Atorvastatin Calcium (ATORVASTATIN CALCIUM) 40 Mg Tablet, 40 MG PO HS for FOR CHOLESTEROL, #30 TAB 0 Refills 01/26/21 Discontinued Scripts Cefdinir (CEFDINIR) 300 Mg Capsule, 300 MG PO BID for UTI for 2 Days, #4 CAP Prov:TEE WILCOX MD 06/03/21 TEE WILCOX MD Jun 18, 2021 09:17
[2021-06-18 11:00] VITALS: BP 160/75
[2021-06-18] MEDS ORDERED: HYDR-2761 PO (13:35)
[2021-06-18] MEDS ORDERED: CEFD300C PO (13:38)
[2021-06-18] MEDS ORDERED: CLON-77 PO (13:41)
[2021-06-18] MEDS: PROCHLORPERAZINE 10 MG/2 ML VIAL. IV PRN (14:51)
[2021-06-18 15:00] VITALS: BP 161/83
[2021-06-18 19:58] VITALS: BP 163/83
[2021-06-18] MEDS: ZOLPIDEM 5 MG TABLET. PO PRN (20:39)
[2021-06-18] MEDS: ATORVASTATIN CALCIUM 40 MG TABLET. PO SCH (20:39)
[2021-06-18] MEDS: CEFDINIR 300 MG CAPSULE PO SCH (20:39)
[2021-06-18 23:24] VITALS: BP 170/70
[2021-06-19] MEDS: HYDROcodone/APAP 5/325MG 1 TAB TABLET PO PRN ×3 (00:39→09:11)
[2021-06-19] MEDS: guaiFENesin DM 200MG/20MG 10 ML SYRUP PO PRN ×3 (01:03→09:07)
[2021-06-19 03:21] VITALS: BP 170/55
[2021-06-19] MEDS: LEVOTHYROXINE 50 MCG TABLET PO SCH (04:37)
[2021-06-19] MEDS: IV NORMAL SALINE 1000ML BAG 1,000 ML IV SCH (04:37)
[2021-06-19 07:00] VITALS: BP 180/95
[2021-06-19] MEDS: POLYETHYLENE GLYCOL 3350 17 GM PACKET. PO SCH ×2 (09:00→09:09)
[2021-06-19] MEDS: methylPREDNISolone SOD SUCC PF 40 MG/ML VIAL. IV SCH (09:07)
[2021-06-19] MEDS: LURASIDONE 40 MG TABLET. PO SCH (09:07)
[2021-06-19] MEDS: SENNOSIDES 8.6 MG TABLET PO SCH (09:07)
[2021-06-19] MEDS: CEFDINIR 300 MG CAPSULE PO SCH (09:07)
[2021-06-19] MEDS: LACTOBACILLUS RHAMNOSUS GG 1 CAPSULE. PO SCH (09:07)
[2021-06-19] MEDS: MULTIVITAMIN with MINERAL TABLET. PO SCH (09:07)
[2021-06-19] MEDS: ASPIRIN CHEWABLE 81 MG TABLET. PO SCH (09:07)
[2021-06-19] MEDS: PANTOPRAZOLE 40 MG TABLET.DR. PO SCH (09:08)
[2021-06-19] MEDS: ENOXAPARIN 40 MG/0.4 ML SYRINGE. SQ SCH (09:08)
[2021-06-19] MEDS: LISINOPRIL 20 MG TABLET PO SCH (09:08)
[2021-06-19] MEDS: DOXYCYCLINE HYCLATE 100 MG TABLET PO SCH (09:08)
[2021-06-19] MEDS: clonazePAM 0.5 MG TABLET PO SCH ×2 (09:09→11:04)
[2021-06-19] MEDS: DULoxetine HCL 20 MG CAPSULE.DR PO SCH (09:09)
[2021-06-19] MEDS: PREGABALIN 75 MG CAPSULE PO SCH (09:09)
[2021-06-19] MEDS: fentaNYL 50MCG/HR PATCH 1 PATCH PATCH.TD72 TD SCH (09:09)
--- NOTE | 2021-06-19 10:13 | PDOC ---
[employer] PROGRESS NOTE Date of Service DOS: DATE: 06/19/21 TIME: 10:12 Chief Complaint Chief Complaint Acute cystitis Hypertensive urgency, improved Covid 19 Mechanical fall Debilitation Failure to thrive History of right AKA Morbid obesity History of Present Illness History of Present Illness 06/19/2021 Patient seen and examined excellent she is probably at her baseline Discussed with RN Discussed with case management We will go ahead and discharge 06/17/2021 Pt seen and examined Blood pressures noted to be trending down Chart reviewed Discussed with RN Vitals/I&O Vitals/I&O: Vital Signs Date Time Temp Pulse Resp B/P (MAP) Pulse Ox O2 Delivery O2 Flow Rate FiO2 06/19/21 09:41 20 100 Room Air 06/19/21 09:08 65 180/95 06/19/21 07:00 97.8 97.8 06/18/21 21:05 2.0 I & O 06/18/21 06/18/21 06/19/21 15:00 23:00 07:00 Intake Total 200 ml 1200 ml 1720 ml Balance 200 ml 1200 ml 1720 ml Physical Exam General: Alert, Cooperative, mild distress Heart: Regular rate Lungs: Clear Abdomen: Normal bowel sounds, Soft Extremities: No clubbing Skin: No breakdown Assessment and Plan Assessmemt and Plan Problems Medical Problems: (1) Fall Status: Acute Plan is discharge see dictation Comment Review of Relevant I have reviewed the following items luis (where applicable) has been applied. Medications: Current Medications Medications (Trade) Dose Ordered Sig/Bennie Route PRN Reason Start Time Stop Time Status Last Admin Dose Admin Cefdinir (Omnicef) 300 mg BID PO 06/18/21 21:00 06/19/21 09:07 Justifications for Admission Other Justification intractable lumbar radiculopathy SUZIE NORRIS III DO Jun 19, 2021 10:12
--- NOTE | 2021-06-19 10:41 | NUR ---
Discharge Note: NOLBERTO HERNANDEZ Discharge instructions and discharge home medications reviewed with Patient and a copy given. All questions have been answered and understanding verbalized. The following instructions and handouts were given: d/c instructions given to patient Discontinued lines and drains: Peripheral IV intact. Patient discharged to Home w/services with Ambulance Personnel via Wheelchair
[2021-06-19 11:00] VITALS: BP 170/55
[2021-06-19 11:05] LABS: BASO % 0 % (0-3); EOS % 0 % (0-3); HEMOGLOBIN 14.6 g/dL (12.0-15.5); LYMPH # 1.3 x10^3/uL (1.0-4.8); LYMPH % 17 % (24-48); MEAN CORPUSCULAR HEMOGLOBIN 29 pg (25-35); MEAN CORPUSCULAR HGB CONC 33 g/dL (31-37); MEAN CORPUSCULAR VOLUME 88 fL (79-100); MONO # 0.7 x10^3/uL (0.0-1.1); MONO % 9 % (0-9); NEUT # 5.8 x10^3/uL (1.8-7.7); NEUT % 74 % (31-73); PLATELET COUNT 169 x10^3/uL (140-400); RED BLOOD COUNT 5.01 x10^6/uL (3.50-5.40); RED CELL DISTRIBUTION WIDTH 14.3 % (11.5-14.5); WHITE BLOOD COUNT 7.9 x10^3/uL (4.0-11.0)
--- NOTE | 2021-06-19 23:00 | DS ---
DATE OF DISCHARGE: 06/19/2021 ADMITTING DIAGNOSES: Fall, urinary tract infection, hypertensive urgency, cystitis. DISCHARGE DIAGNOSES: Resolving urinary tract infection, resolving falls, resolving cystitis, resolving hypertensive urgency, history of above-knee amputation, obesity, polypharmacy, depression, anxiety, constipation, chronic pain, arthritis, probable narcotic dependence, hypothyroidism, gastroesophageal reflux disease, restless leg, insomnia, incontinence. HOSPITAL COURSE: The patient is a pleasant 60-year-old female who presented with fall. She had a UTI. We admitted her, gave her IV fluids, IV antibiotics, did some physical therapy and occupational therapy. Today, I saw her and examined her. She was doing well. We plan to discharge. DISPOSITION: Home. ACTIVITY: As tolerated. DIET: Low sodium. DISCHARGE MEDICATIONS: Please see the [facility]. Cefdinir 300 b.i.d., clonazepam 0.5 mg t.i.d., hydrocodone 5/325 one q.4 hours p.r.n., Trang-Bid caplet, atorvastatin 40 a day, calcium, clonazepam 2 mg q.h.s., cyclobenzaprine 1 t.i.d., docusate, Cymbalta 20 a day, fentanyl patches 50 mcg change every 3 days, Culturelle, Synthroid 50 a day, lisinopril 20 a day, Latuda 60 a day, multiple vitamins, Movantik 25 a day, Protonix 40 a day, MiraLax, Lyrica 75 b.i.d., senna, Flomax 0.4 a day, vitamin D, vitamin E, Ambien 10 at bedtime, vitamin B12. TOTAL TIME: 39 minutes. BREE/ARTUR DR: Real TID: [id number]
== END 2021-06-19 12:35 | disposition home or self-care (01) | DRG 689 ==
LOC: ER 13:02 → ED HOLD 23:48 → 5 SOUTH 06-16 08:24
PROVIDERS: ADMIT Internal Medicine; ATTEND Internal Medicine
DX: N30.00 Acute cystitis without hematuria (principal); U07.1 COVID-19; F11.20 Opioid dependence, uncomplicated; I16.0 Hypertensive urgency; E03.9 Hypothyroidism, unspecified; E66.01 Morbid (severe) obesity due to excess calories; G25.81 Restless legs syndrome; I10 Essential (primary) hypertension; M48.04 Spinal stenosis, thoracic region; M48.061 Spinal stenosis, lumbar region without neurogenic claudication; M54.16 Radiculopathy, lumbar region; M81.0 Age-related osteoporosis without current pathological fracture; R62.7 Adult failure to thrive; W01.0XXA Fall on same level from slipping, tripping and stumbling without subsequent striking against object, initial encounter; Z87.442 Personal history of urinary calculi; Z89.511 Acquired absence of right leg below knee; Z89.611 Acquired absence of right leg above knee; Z96.649 Presence of unspecified artificial hip joint; Z98.84 Bariatric surgery status; E66.9 Obesity, unspecified; F32.A Depression, unspecified; F41.9 Anxiety disorder, unspecified; G47.00 Insomnia, unspecified; G89.29 Other chronic pain; K21.9 Gastro-esophageal reflux disease without esophagitis; M19.90 Unspecified osteoarthritis, unspecified site
CPT/HCPCS: 36415; 70450; 72125; 72128; 72131; 73564; 80048; 80053; 80307; 81001; 83735; 84100; 85025; 87077; 87086; 87186; 96372; 96374; J0696; J0780; J1650; J2060; J2405; J2920; J3010; J3490; J7030; U0003; U0005; 73080-50; 97110-GP; 99285-25; G0378; Q0163